=== PATIENT | male | born 1940 | race Caucasian/White ===

== ENCOUNTER 2020-08-30 06:08 | Outpatient (REF) | payer MEDICARE, SELFPAY ==
[2020-08-30 07:36] LABS: Alanine Aminotransferase 27 U/L (0-40); Albumin Level 4.3 g/dL (3.5-5.0); Alkaline Phosphatase 85 U/L (39-117); Anion Gap 12 (12-20); Aspartate Amino Transferase 21 U/L (5-37); Bilirubin Total 0.6 mg/dL (0.0-1.0); Blood Urea Nitrogen 22 mg/dL (9-16); Calcium 9.3 mg/dL (8.4-10.2); Carbon Dioxide 28 mmol/L (22-29); Chloride 104 mmol/L (96-108); Cholesterol 106 mg/dL; Estimated Glomerular Filt Rate 49; Glucose Fasting 115 mg/dL (60-99); HDL Cholesterol 32 mg/dL; LDL Cholesterol Calculated 53 mg/dl; Potassium 5.3 mmol/l (3.3-5.1); Sodium 139 mmol/L (135-145); Total Protein 7.3 g/dL (6.5-8.0); Triglycerides 106 mg/dL; Uric Acid 6.6 mg/dL (3.4-7.0)
[2020-08-30 07:56] LABS: Creatinine Urine 27.65 mg/dL; Microalbum/Creatinine Ratio Ur 54.2 ug/mg cr
== END 2020-08-30 06:09 | disposition home or self-care (01) ==
LOC: HO.LAB 06:08
PROVIDERS: Visit Provider Internal Medicine
DX: E11.3599 Type 2 diabetes mellitus with proliferative diabetic retinopathy without macular edema, unspecified eye (principal); M10.9 Gout, unspecified
CPT/HCPCS: 36415; 80053; 80061; 82043; 84550

== ENCOUNTER 2021-01-03 07:07 | Outpatient (REF) | payer MEDICARE, SELFPAY ==
[2021-01-03 08:16] LABS: Alanine Aminotransferase 24 U/L (0-40); Albumin Level 4.1 g/dL (3.5-5.0); Alkaline Phosphatase 91 U/L (39-117); Anion Gap 14 (12-20); Aspartate Amino Transferase 18 U/L (5-37); Bilirubin Total 0.5 mg/dL (0.0-1.0); Blood Urea Nitrogen 18 mg/dL (9-16); Calcium 8.7 mg/dL (8.4-10.2); Carbon Dioxide 25 mmol/L (22-29); Chloride 105 mmol/L (96-108); Cholesterol 111 mg/dL; Estimated Glomerular Filt Rate 54; Glucose Fasting 134 mg/dL (60-99); HDL Cholesterol 32 mg/dL; LDL Cholesterol Calculated 56 mg/dl; Potassium 4.8 mmol/L (3.3-5.1); Sodium 139 mmol/L (135-145); Triglycerides 116 mg/dL
[2021-01-03 08:20] LABS: Creatinine Urine 117.15 mg/dL; Microalbum/Creatinine Ratio Ur 139.9 ug/mg cr
[2021-01-03 09:11] LABS: Uric Acid 5.6 mg/dL (3.4-7.0)
== END 2021-01-03 07:08 | disposition home or self-care (01) ==
LOC: HO.LAB 07:07
PROVIDERS: Visit Provider Internal Medicine
DX: E11.9 Type 2 diabetes mellitus without complications (principal); E78.5 Hyperlipidemia, unspecified; M10.9 Gout, unspecified
CPT/HCPCS: 36415; 80053; 80061; 82043; 84550

== ENCOUNTER → 2021-02-19 13:28 | Outpatient (REF) | payer MEDICARE, SELFPAY ==
--- NOTE | 2021-02-19 13:33 | CA_ITS ---
Transthoracic Echocardiogram Patient (Last, First, Middle): Calvin Godwin, Gender: Male Date of : 1940 Age: 80 Procedure Date: 02/19/2021 Procedure Type: Transthoracic Echocardiogram Location: OP Height: 157.48 cm Weight: 86.18 kg BSA: 1.87 m2 Heart Rate: bpm BP: 124 / 80 mmHg Actuarial Science Professor: Referring MD: Fang Solitario MD Symptoms: R60.0 - Localized edema Study Quality: Fair ECG Rhythm: Sinus Conclusions: - The left ventricular systolic function is normal. The visually estimated ejection fraction is between 65-70%. - There is moderate septal asymmetric hypertrophy. - There is mild calcification of the aortic valve. - No obvious valvular pathology seen on this study. Findings Left Ventricle Normal left ventricular cavity size. The left ventricular systolic function is normal. The visually estimated ejection fraction is between 65-70%. There is no evidence of regional wall motion abnormalities. E/E prime ratio is >15, consistent with elevated filling pressures. Evidence suggests grade I (mild) diastolic dysfunction. There is moderate septal asymmetric hypertrophy. Right Ventricle Normal right ventricular cavity size and systolic function. Atria The left atrium is normal in size. The right atrium is normal in size. Aortic Valve There is mild calcification of the aortic valve. There is no aortic valve stenosis. There is no aortic valve regurgitation. Mitral Valve The mitral valve appears normal. There is trace mitral valve regurgitation. There is no mitral valve stenosis. Pulmonic Valve The pulmonic valve was not well visualized. Tricuspid Valve Normal tricuspid valve structure. There is trace tricuspid valve regurgitation. The pulmonary artery systolic pressure is normal. Great Vessels Top normal ascending aortic size at 3.7 cm. Venous The inferior vena cava is normal in size and collapses greater than 50% with inspiration. Pericardium/Pleural There is no evidence of pericardial effusion. Prior Study Comparison No significant change compared to prior study dated: 05/26/2019. Recommendations, Care & Conclusions No obvious valvular pathology seen on this study. Measurements 2D Linear Measurements IVSd: 1.57 0.6-0.9/0.6-1.0 cm LVIDd: 3.29 3.9-5.3/4.2-5.9 cm LVIDd Index: 1.76 2.4-3.2/2.2-3.1 cm/m2 LVIDs: 2.21 2.0-3.6 cm LVPWd: 1.51 0.7-1.1 cm Ao Root: 3.60 2.1-3.5 cm LA Diam: 3.40 2.7-3.8/3.0-4.0 cm LAIDs Index: 1.82 1.5-2.3 cm/m2 LV Mass: 231.78 67-162/88-224 g LV Mass Index: 123.95 43-95/49-115 g/m2 LVOT Diam: 2.00 3.0+(-)1.3 cm Mitral Valve MV Pk E: 0.61 MV PK A: 1.05 MV Decel Time: 116.00 E/A: 0.60 E'Lateral: 3.67 E'Medial: 4.06 E/E' Med: 15.00 E/E' Lat: 16.60 PHT: 34.00 MVA PHT: 6.47 Decel [place]: 5.26 Aortic Valve AoV Pk Henry: 1.28 AoV Mn Henry: 0.86 AoV VTI: 0.23 AoV Pk Grad: 7.00 Aov Mn Grad: 3.00 ANDER Cont.VTI: 1.93 LVOT LVOT Pk Henry: 0.87 LVOT Mn Henry: 0.63 LVOT VTI: 0.14 LVOT Pk Grad: 3.00 LVOT Mn Grad: 2.00 LVOT Diam: 2.00 LVOT Area: 3.14 Diastolic Function MV Pk E: 0.61 MV Pk A: 1.05 E/A: 0.60 E'Medial: 4.06 E/E' Med: 15.00 E' Laterial: 3.67 E/E' Lat: 16.60 Tricuspid Valve TR Pk Henry: 1.58 TR Pk Grad: 10.00 RA Press: 3.00 RVSP: 13.00 Great Vessels Aorta Ao Root-2D: 3.60 2.0-3.7 cm Ao Asc: 3.70 2.1-3.4 cm Pulmonary Valve PV Pk Henry: 0.77 Peak PV Grad: 2.00 Updated in Other Vendor System with Status of Final Randy Kay MD electronically signed on 02/20/2021 12:19:51 PM with status of Final
== END ==
LOC: HO.CARD 13:28
PROVIDERS: Visit Provider Internal Medicine
DX: R60.0 Localized edema (principal)
CPT/HCPCS: 93306

== ENCOUNTER 2021-09-18 08:34 | Outpatient (REF) | payer MEDICARE, SELFPAY ==
[2021-09-18 09:57] LABS: B Type Natriuretic Peptide 22 pg/mL (<100)
[2021-09-18 10:02] LABS: Alanine Aminotransferase 25 U/L (0-40); Albumin Level 4.2 g/dL (3.5-5.0); Alkaline Phosphatase 102 U/L (39-117); Anion Gap 13 (12-20); Aspartate Amino Transferase 19 U/L (5-37); Bilirubin Total 0.9 mg/dL (0.0-1.0); Blood Urea Nitrogen 21 mg/dL (9-16); Calcium 9.1 mg/dL (8.4-10.2); Carbon Dioxide 24 mmol/L (22-29); Chloride 104 mmol/L (96-108); Cholesterol 103 mg/dL; Estimated Glomerular Filt Rate 47; Glucose Fasting 167 mg/dL (60-99); HDL Cholesterol 31 mg/dL; LDL Cholesterol Calculated 54 mg/dl; Sodium 136 mmol/L (135-145); Total Protein 7.2 g/dL (6.5-8.0); Triglycerides 90 mg/dL
[2021-09-18 10:12] LABS: Uric Acid 5.7 mg/dL (3.4-7.0)
[2021-09-18 10:18] LABS: TSH reflex Free T4 2.71 uIU/mL (0.32-4.0)
[2021-09-18 10:46] LABS: Creatinine Urine 47.26 mg/dL; Microalbum/Creatinine Ratio Ur 97.3 ug/mg cr
== END 2021-09-18 08:35 | disposition home or self-care (01) ==
LOC: HO.LAB 08:34
PROVIDERS: PCP Internal Medicine; Visit Provider Internal Medicine
DX: R60.0 Localized edema (principal); E11.29 Type 2 diabetes mellitus with other diabetic kidney complication; R80.9 Proteinuria, unspecified; E78.5 Hyperlipidemia, unspecified; M10.9 Gout, unspecified
CPT/HCPCS: 36415; 80053; 80061; 82043; 83880; 84443; 84550

== ENCOUNTER 2022-03-03 06:13 | Outpatient (REF) | payer MEDICARE, MEDICAID, SELFPAY ==
[2022-03-03 08:00] LABS: Creatinine Urine 85.88 mg/dL; Microalbum/Creatinine Ratio Ur 126.9 ug/mg cr
[2022-03-03 08:05] LABS: Alanine Aminotransferase 29 U/L (0-40); Alkaline Phosphatase 97 U/L (39-117); Anion Gap 12 (12-20); Aspartate Amino Transferase 20 U/L (5-37); Bilirubin Total 0.5 mg/dL (0.0-1.0); Blood Urea Nitrogen 22 mg/dL (9-16); Calcium 9.2 mg/dL (8.4-10.2); Carbon Dioxide 26 mmol/L (22-29); Chloride 105 mmol/L (96-108); Cholesterol 105 mg/dL; Estimated Glomerular Filt Rate 45; Glucose Fasting 219 mg/dL (60-99); HDL Cholesterol 30 mg/dL; LDL Cholesterol Calculated 51 mg/dl; Potassium 5.5 mmol/L (3.3-5.1); Sodium 137 mmol/L (135-145); Total Protein 7.1 g/dL (6.5-8.0); Triglycerides 121 mg/dL
[2022-03-03 08:17] LABS: Uric Acid 5.7 mg/dL (3.4-7.0)
[2022-03-08 12:41] LABS: Vitamin D 25-OH, D2 <4 ng/mL; Vitamin D 25-OH, D3 34 ng/mL; Vitamin D 25-OH, Total 34 ng/mL (30-100)
== END 2022-03-03 06:14 | disposition home or self-care (01) ==
LOC: HO.LAB 06:13
PROVIDERS: PCP Internal Medicine; Visit Provider Internal Medicine
DX: I10 Essential (primary) hypertension (principal); E11.9 Type 2 diabetes mellitus without complications; E78.5 Hyperlipidemia, unspecified; E55.9 Vitamin D deficiency, unspecified; M10.9 Gout, unspecified
CPT/HCPCS: 36415; 80053; 80061; 82043; 82306; 84550

== ENCOUNTER 2022-09-15 06:34 | Outpatient (REF) | payer MEDICARE, MEDICAID, SELFPAY ==
[2022-09-15 07:56] LABS: Alanine Aminotransferase 27 U/L (0-40); Albumin Level 4.1 g/dL (3.5-5.0); Alkaline Phosphatase 102 U/L (39-117); Anion Gap 16 (12-20); Aspartate Amino Transferase 22 U/L (5-37); Bilirubin Total 0.5 mg/dL (0.0-1.0); Blood Urea Nitrogen 21 mg/dL (9-16); Calcium 9.2 mg/dL (8.4-10.2); Carbon Dioxide 25 mmol/L (22-29); Chloride 104 mmol/L (96-108); Cholesterol 114 mg/dL; Estimated Glomerular Filt Rate 50; Glucose Fasting 147 mg/dL (60-99); HDL Cholesterol 34 mg/dL; LDL Cholesterol Calculated 50 mg/dl; Potassium 5.2 mmol/L (3.3-5.1); Sodium 140 mmol/L (135-145); Total Protein 7.1 g/dL (6.5-8.0); Triglycerides 151 mg/dL; Uric Acid 5.7 mg/dL (3.4-7.0)
[2022-09-15 08:01] LABS: Creatinine Urine 51.55 mg/dL; Microalbum/Creatinine Ratio Ur 195.9 ug/mg cr
[2022-09-15 08:19] LABS: Vitamin D 25-OH Total 32.3 ng/mL (>30)
== END 2022-09-15 06:35 | disposition home or self-care (01) ==
LOC: HO.LAB 06:34
PROVIDERS: PCP Internal Medicine; Visit Provider Internal Medicine
DX: E11.29 Type 2 diabetes mellitus with other diabetic kidney complication (principal); R80.9 Proteinuria, unspecified; E78.5 Hyperlipidemia, unspecified; M10.9 Gout, unspecified; E55.9 Vitamin D deficiency, unspecified
CPT/HCPCS: 36415; 80053; 80061; 82043; 82306; 84550

== ENCOUNTER 2023-10-06 16:30 | Outpatient (AMB) | payer MEDICARE, MEDICAID, SELFPAY ==
--- NOTE | 2023-10-06 16:33 | MHC.PC.OV ---
Vital Signs 10/06/23 16:34 Height 5 ft Weight 197 lb BMI 38.5 BP 130/68 Blood Pressure Location Lt brachial Position Sitting Pulse 71 Pulse Source Pulse Oximeter Pulse Oximetry (%) 94 Oxygen Delivery Method Room Air Intake Visit Reasons: PE Intake Note: Patient here for a physical exam, referral request to opthalmologist Dr peña [facility] Counsel Required: No Accompanied by: Self / Same As Patient Allergies seafood Allergy (Severe, Verified 10/06/23 16:58) Anaphylaxis Medication List - Last Reconciled 10/06/23 by Fang Solitario MD allopurinol 100 mg PO DAILY 90 days aspirin (Adult Aspirin Regimen) 81 mg PO DAILY 90 days atorvastatin 40 mg PO DAILY blood sugar diagnostic 1 strip miscellaneous BID 30 days blood-glucose meter ([employer] Ultra2 Meter kit) As directed brimonidine 0.1% 1 drp ophthalmic-Right BID dorzolamide-timolol 22.3-6.8 mg/mL 1 drp ophthalmic-Right BID insulin degludec (Tresiba FlexTouch U-100 insulin) 39 units (0.39 mL) subcut BEDTIME 90 days isosorbide mononitrate ER 30 mg PO DAILY lancets ([employer]Touch UltraSoft Lancets) Use 1 lancet twice a day latanoprost 0.005% 1 drp ophthalmic-Right BEDTIME linagliptin (Tradjenta) 5 mg PO DAILY 90 days metformin 1,000 mg PO BID metoprolol succinate ER 25 mg PO DAILY olmesartan 40 mg PO DAILY omeprazole 20 mg PO DAILY 90 days pen needle, diabetic (BD Ultra-Fine Mini Pen Needle) USE EVERY DAY Tobacco use date assessed: 12/24/22 Fall risk assessment: No Falls in past year Last assessed Fall Risk: 10/06/23 Dental Screening Dental Screen Date: 10/06/23 Did you have a dental visit in the last 12 months?: No Did you have a dental problem in the last 6 months where you did not have access to dental care?: No Was dental information given to patient?: Patient declined HPI HPI Comments History of Present Illness Details This is an 83-year-old male with diabetes mellitus type 2 that comes accompanied by daughter which is the intake counselor for his physical exam. A1c has improved but still elevated and I will increase insulin. No chest pain or shortness of breath. He is legally blind and use a cane for walking. Will be referred to Ophthalmology for diabetic eye exam. 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 Mother Diabetes Brother Hx of CABG Diabetes Hypertension Daughter No problems noted. Daughter No problems noted. Social History Housing: Apartment Alcohol intake: former Year quit: 2011 Patient Tobacco Use Status: Former Tobacco user Tobacco use type: Cigarette e-Cigarette/Vaping Use: Never Used Second Hand Smoke Exposure: No service: No Current occupational status: disabled Cognitive needs: Yes Hearing needs: No Vision needs: No Questionnaire Thrive Questionnaire Date Thrive assessed: 12/24/22 DIONNE-7 AMB Questionnaire DIONNE-7 Date DIONNE - 7 assessed: 12/24/22 Source: Developed by Drs. Byron Wu, Lisy Turner, Jame King and colleagues, with an educational belen from [employer]. Review of Systems Const All systems reviewed & are unremarkable except as noted in HPI and below Eyes Reports no additional complaints, Denies change in vision and Denies other visual disturbances Card Denies chest pain at rest, Denies chest pain with activity, Denies edema, Denies irregular heart rhythm, Denies claudication, Denies dyspnea, Denies dyspnea on exertion, Denies orthopnea, Denies paroxysmal nocturnal dyspnea and Denies slow heart rate Resp Denies cough, Denies dyspnea and Denies dyspnea on exertion GI Denies abdominal pain, Denies change in bowel habits, Denies excessive flatus, Denies nausea and Denies vomiting Denies urinary hesitancy, Denies urinary incontinence and Denies urinary urgency Musc Denies abnormal gait, Denies atrophy, Denies deformity and Denies limited range of motion Skin/Breast Denies bleeding lesions, Denies changing lesions and Denies rash Neuro Denies abnormal gait, Denies behavioral changes, Denies confusion and Denies lack of coordination Psych Denies behavioral changes and Denies confusion Physical exam (Primary Care) Vital Signs: Last Vital Signs Pulse 71 10/06/23 16:34 BP 130/68 10/06/23 16:34 Pulse Ox 94 10/06/23 16:34 Oxygen Delivery Method Room Air 10/06/23 16:34 BMI result Body Mass Index 38.5 Tobacco/Smoking Status: Tobacco use Status Tobacco use date assessed 12/24/22 10/06/23 16:44 Patient Tobacco Use Status Former Tobacco user 10/06/23 16:44 Tobacco use type Cigarette 10/06/23 16:44 e-Cigarette/Vaping Use Never Used 10/06/23 16:44 Thrive Assessment: Date of Thrive Assessment Date Thrive assessed 12/24/22 10/06/23 16:44 Const General: No confusion Orientation/consciousness: patient oriented x3 and No confusion Limitations: ambulation with cane HENMT Head: Yes normal to inspection, Yes normocephalic and Yes atraumatic Ears: external ears normal General nose exam: Normal external nose present and No nasal discharge present Face and sinus: Yes sinuses nontender Mouth: lip normal Eyes Eyelids: Yes eyelids normal Neck Neck: Yes normal visual inspection and Yes supple Resp Effort & Inspection: normal respiratory effort Auscultation: clear to auscultation bilaterally Cardio Jugular venous distension: no JVD Rate: regular rate Rhythm: regular rhythm Heart sounds: S1 normal heart sound present and S2 normal heart sound present GI Inspection: Yes normal to inspection Palpation (GI): Soft to palpation and nontender Auscultation: normal bowel sounds Skin General skin exam: no rashes or lesions noted Neuro General: patient oriented x3, no focal motor deficits and No confusion Extrem General: Yes full ROM Psych Appearance: grossly normal Office Procedures Flu Questionnaire Does the patient have a severe egg allergy?: No Does the patient have severe life threatening allergies?: No Does the patient have a fever or illness today?: No Has the patient ever had Guillain-[place] Syndrome?: No Has the patient ever had any past reaction to a flu shot?: No Results AMB Hemoglobin A1c AMB Hemoglobin A1c 7.4 % Last Edit by ORION Campbell on 10/06/23 16:49 Immunizations flu vacc [id number] 6mos up(PF) 60 mcg(15 mcgx4)/0.5 mL IM syringe Performing Provider: Fang Solitario MD [facility] Administered by: Clemencia ORION Saleem on 10/06/23 17:13 Dose Route Admin Location Dispensed Lot Number Expiration Date NDC Statistician Mathematical 0.5 mL IM Right Deltoid 0.5 mL [id number] 05/29/24 [id number] Appiterate VIS Given Date VIS Provided VIS Publication Date 10/06/23 Single Vaccine 21 Eligibility Eligibility Date Funding Source Not VFC Eligible 10/06/23 Private Results Reviewed Results Reviewed: Laboratory Last Values Hgb A1c (Clinic) 7.4 % (4.0-6.0) H 10/06/23 16:33 Assessment and Plan Assessment & Plan (1) Physical exam: Code(s): Z00.00 - Encounter for general adult medical examination without abnormal findings Plan: Repeat in a year. (2) Diabetes mellitus: Code(s): E11.9 - Type 2 diabetes mellitus without complications Qualifiers: Diabetes mellitus type: type 2 Diabetes mellitus usp insulin use: without usp use Diabetes mellitus complication status: with kidney complications Diabetes mellitus complication detail: with microalbuminuria Qualified Code(s): E11.29 - Type 2 diabetes mellitus with other diabetic kidney complication; R80.9 - Proteinuria, unspecified Plan: Increase insulin. A1c goal is equal or less than 7%. Orders: Orders Lipid Panel Today E78.5 - Hyperlipidemia, unspecified Uric Acid Today M10.9 - Gout, unspecified Comprehensive [place]. Panel Fast Today N18.30 - Chronic kidney disease, stage 3 unspecified AMB Hemoglobin A1c Today E11.9 - Type 2 diabetes mellitus without complications Influenza [id number] Immunization Today Z23 - Encounter for immunization Microalbumin, Random (w Creat) Today E11.9 - Type 2 diabetes mellitus without complications Referrals Ophthalmology Referral E11.9 - Type 2 diabetes mellitus without complications, H40.9 - Unspecified glaucoma Medications: New amoxicillin 500 mg PO BID 14 tabs 0RF 7 days Changed From insulin degludec (Tresiba FlexTouch U-100 insulin) 39 units (0.39 mL) subcut BEDTIME 90 days 35.1 mL 1RF E11.29 - Type 2 diabetes mellitus with other diabetic kidney complication, R80.9 - Proteinuria, unspecified, 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 To insulin degludec (Tresiba FlexTouch U-100 insulin) 40 units (0.4 mL) subcut BEDTIME 36 mL 1RF 90 days E11.29 - Type 2 diabetes mellitus with other diabetic kidney complication, R80.9 - Proteinuria, unspecified, 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
[2023-10-06 16:34] VITALS: BP 130/68; PULSE 71; O2SAT 94; BMI 38.5
== END 2023-10-06 17:19 | disposition home or self-care (01) ==
PROVIDERS: Visit Provider Internal Medicine
DX: Z00.00 Encounter for general adult medical examination without abnormal findings (principal); E11.29 Type 2 diabetes mellitus with other diabetic kidney complication; R80.9 Proteinuria, unspecified; Z23 Encounter for immunization
CPT/HCPCS: 83036; 90471; 90686; 99397

== ENCOUNTER 2024-01-30 07:07 | Outpatient (REF) | payer MEDICARE, MEDICAID, SELFPAY ==
[2024-01-30 08:19] LABS: Alanine Aminotransferase 22 U/L (0-40); Albumin Level 3.8 g/dL (3.5-5.0); Alkaline Phosphatase 93 U/L (39-117); Anion Gap 16 (12-20); Aspartate Amino Transferase 23 U/L (5-37); Bilirubin Total 0.5 mg/dL (0.0-1.0); Blood Urea Nitrogen 20 mg/dL (9-16); Calcium 8.8 mg/dL (8.4-10.2); Carbon Dioxide 24 mmol/L (22-29); Chloride 106 mmol/L (96-108); Cholesterol 108 mg/dL (<200); Estimated Glomerular Filt Rate 56; Glucose Fasting 136 mg/dL (60-99); HDL Cholesterol 34 mg/dL (>40); LDL Cholesterol Calculated 53 mg/dL (<100); Potassium 4.9 mmol/L (3.3-5.1); Sodium 141 mmol/L (135-145); Triglycerides 107 mg/dL (<150); Uric Acid 5.6 mg/dL (3.4-7.0)
[2024-01-30 08:27] LABS: Creatinine Urine 78.15 mg/dL
== END 2024-01-30 07:08 | disposition home or self-care (01) ==
LOC: HO.LAB 07:07
PROVIDERS: PCP Internal Medicine; Visit Provider Internal Medicine
DX: E11.22 Type 2 diabetes mellitus with diabetic chronic kidney disease (principal); E78.5 Hyperlipidemia, unspecified; M10.9 Gout, unspecified; N18.30 Chronic kidney disease, stage 3 unspecified
CPT/HCPCS: 36415; 80053; 80061; 82043; 82570; 84550

== ENCOUNTER 2024-02-02 13:18 | Outpatient (AMB) | payer MEDICARE, MEDICAID, SELFPAY ==
[2024-02-02 13:24] VITALS: BP 138/80; BMI 38.7
--- NOTE | 2024-02-02 13:24 | A.OFFPC_ITS ---
Vital Signs 02/02/24 13:24 Height 5 ft Weight 198 lb BMI 38.7 BP 138/80 Blood Pressure Location Lt brachial Position Sitting Intake Visit Reasons: dm Intake Note: Patient here for a follow up DM Chief Compliance Officer Required: No Accompanied by: Daughter Allergies seafood Allergy (Severe, Verified 02/02/24 13:43) Anaphylaxis Medication List - Last Reconciled 02/02/24 by Fang Solitario MD allopurinol 100 mg PO DAILY 90 days aspirin (Adult Aspirin Regimen) 81 mg PO DAILY 90 days atorvastatin 40 mg PO DAILY blood sugar diagnostic 1 strip miscellaneous BID 30 days blood-glucose meter ([employer] Ultra2 Meter kit) As directed brimonidine 0.1% 1 drp ophthalmic-Right BID dorzolamide-timolol 22.3-6.8 mg/mL 1 drp ophthalmic-Right BID insulin degludec (Tresiba FlexTouch U-100 insulin) 40 units (0.4 mL) subcut BEDTIME 90 days isosorbide mononitrate ER 30 mg PO DAILY lancets ([employer] UltraSoft Lancets) Use 1 lancet twice a day latanoprost 0.005% 1 drp ophthalmic-Right BEDTIME linagliptin (Tradjenta) 5 mg PO DAILY 90 days metformin 1,000 mg PO BID metoprolol succinate ER 25 mg PO DAILY olmesartan 40 mg PO DAILY omeprazole 20 mg PO DAILY 90 days pen needle, diabetic (BD Ultra-Fine Mini Pen Needle) USE EVERY DAY Tobacco use date assessed: 02/02/24 Fall risk assessment: No Falls in past year Last assessed Fall Risk: 02/02/24 Dental Screening Dental Screen Date: 02/02/24 Did you have a dental visit in the last 12 months?: No Did you have a dental problem in the last 6 months where you did not have access to dental care?: No Was dental information given to patient?: Patient declined HPI HPI Comments History of Present Illness Details This is an 83-year-old male with diabetes mellitus type 2 on long-term current use of insulin, chronic kidney disease stage 3, hypertension, dyslipidemia and GERD that comes today accompanied by daughter which is the conference coordinator for follow-up on his conditions. A1c elevated and I will replace Tradjenta with Trulicity. He has use Trulicity in the past but daughter said that he decrease his appetite. We will try it again. Blood pressure stable. GFR of 57 and he used to follow with Nephrology and I will refer him again. LDL within goal. GERD stable with PPIs. He is blind and walks with a cane for that matter. [facility] Medical History [facility] (current) use of insulin Class 2 obesity with body mass index (BMI) of 37.0 to 37.9 in adult Blind in both eyes Microalbuminuria Leg edema Essential hypertension Diabetes mellitus Dyslipidemia Gout Surgical History History of cataract surgery History of eye surgery Family History Father No problems noted. Mother Diabetes Brother Hx of CABG Diabetes Hypertension Daughter No problems noted. Daughter No problems noted. Social History Housing: Apartment Alcohol intake: former Year quit: 2011 Patient Tobacco Use Status: Former Tobacco user Tobacco use type: Cigarette e-Cigarette/Vaping Use: Never Used Second Hand Smoke Exposure: No service: No Current occupational status: disabled Cognitive needs: Yes Hearing needs: No Vision needs: No Questionnaire PHQ-9 Over the last 2 weeks, how often have you been bothered by any of the following problems? 1. Little interest or pleasure in doing things: not at all 2. Feeling down, depressed, or hopeless: not at all 3. Trouble falling or staying asleep, or sleeping too much: not at all 4. Feeling tired or having little energy: not at all 5. Poor appetite or overeating: not at all 6. Feeling bad about yourself - or that you are a failure or have let yourself or your family down: not at all 7. Trouble concentrating on things, such as reading the newspaper or watching television: not at all 8. Moving or speaking so slowly that other people could have noticed. Or the opposite - being so fidgety or restless that you have been moving around a lot more than usual: not at all 9. Thoughts that you would be better off or of hurting yourself in some way: not at all Total score: 0 Depression Screening Interpretation: Negative Depression Screening Done: Yes 65710 - PHQ-9 Billing: Yes Source: Developed by Drs. Byron Wu, Jame Zayas and colleagues, with an educational belen from [employer]. Thrive Questionnaire Date Thrive assessed: 02/02/24 I am a: Patient What is your living situation today?: I have a steady place to live Within the past 12 months, did the food you bought not last and you didn't have the money to get more?: Never true Within the past 12 months, did you worry whether your food would run out before you got money to buy more?: Never true Do you have trouble paying for medicines?: No Do you have trouble getting transportation to medical appointments?: No Do you have trouble paying your heating and electricity bill?: No Do you have trouble taking care of your child, family member or friend?: No Do you have trouble with day-to-day activities such as bathing, preparing meals, shopping, managing finances, etc.?: Yes Are you currently unemployed and looking for a job?: No Are you interested in more education?: No Please select the resources that you would like help with: None Currently or been in a relationship where the following occur: no concerns reported THRIVE Score: 0 AUDIT C Alcohol Use Questionnaire (AUDIT-C) 1. How often do you have a drink containing alcohol?: Never Total Score: 0 DIONNE-7 AMB Questionnaire DIONNE-7 Date DIONNE - 7 assessed: 02/02/24 Feeling nervous, anxious, or on edge: 0 = Not at all Not being able to stop or control worryin = Not at all Worrying too much about different things: 0 = Not at all Trouble relaxin = Not at all Being so restless that it is hard to sit still: 0 = Not at all Becoming easily annoyed or irritable: 0 = Not at all Feeling afraid as if something awful might happen: 0 = Not at all Total DIONNE-7 score (0-4 normal; 5-9 mild; 10-14 moderate; 15-21 severe): 0 Source: Developed by Lisy Mcneill Kurt Kroenke and colleagues, with an educational belen from [employer]. DIONNE-7 Assessment Billing DIONNE-7 Assessment Tool: DIONNE-7 Assessment 22480 Review of Systems Const All systems reviewed & are unremarkable except as noted in HPI and below Eyes Reports no additional complaints, Denies change in vision and Denies other visual disturbances Card Denies chest pain at rest, Denies chest pain with activity, Denies edema, Denies irregular heart rhythm, Denies claudication, Denies dyspnea, Denies dyspnea on exertion, Denies orthopnea, Denies paroxysmal nocturnal dyspnea and Denies slow heart rate Resp Denies cough, Denies dyspnea and Denies dyspnea on exertion GI Denies abdominal pain, Denies change in bowel habits, Denies excessive flatus, Denies nausea and Denies vomiting Denies urinary hesitancy, Denies urinary incontinence and Denies urinary urgency Musc Denies abnormal gait, Denies atrophy, Denies deformity and Denies limited range of motion Skin/Breast Denies bleeding lesions, Denies changing lesions and Denies rash Neuro Denies abnormal gait, Denies behavioral changes and Denies lack of coordination Psych Denies behavioral changes Physical exam (Primary Care) Vital Signs: Last Vital Signs BP 138/80 02/02/24 13:24 BMI result Body Mass Index 38.7 Tobacco/Smoking Status: Tobacco use Status Tobacco use date assessed 02/02/24 02/02/24 13:33 Patient Tobacco Use Status Former Tobacco user 02/02/24 13:27 Tobacco use type Cigarette 02/02/24 13:27 e-Cigarette/Vaping Use Never Used 02/02/24 13:27 PHQ-9: PHQ-9 Score PHQ-9: Total score 0 02/02/24 13:48 Depression Screening Interpretation: Negative Thrive Assessment: Date of Thrive Assessment Date Thrive assessed 02/02/24 02/02/24 13:33 Currently or been in a relationship where the following occur: no concerns reported Neck Neck: Yes normal visual inspection and Yes supple Resp Effort & Inspection: normal respiratory effort Auscultation: clear to auscultation bilaterally Cardio Jugular venous distension: no JVD Rate: regular rate Rhythm: regular rhythm Heart sounds: S1 normal heart sound present and S2 normal heart sound present Extrem General: Yes full ROM Results AMB Hemoglobin A1c AMB Hemoglobin A1c 8.5 % Last Edit by ORION Campbell on 02/02/24 13:3 6 Results Reviewed Results Reviewed: Laboratory Last Values Hgb A1c (Clinic) 8.5 % (4.0-6.0) H 02/02/24 13:34 Assessment and Plan Assessment & Plan (1) Diabetes mellitus: Code(s): E11.9 - Type 2 diabetes mellitus without complications Qualifiers: Diabetes mellitus type: type 2 Diabetes mellitus correction insulin use: without correction use Diabetes mellitus complication status: with kidney complications Diabetes mellitus complication detail: with microalbuminuria Qualified Code(s): E11.29 - Type 2 diabetes mellitus with other diabetic kidney complication; R80.9 - Proteinuria, unspecified Plan: Continue metformin and insulin. Discontinue Tradjenta. Start Trulicity. A1c goal is equal or less than 7%. (2) Essential hypertension: Code(s): I10 - Essential (primary) hypertension Plan: Continue olmesartan. Blood pressure goal is equal or less than 130/80. (3) Dyslipidemia: Code(s): E78.5 - Hyperlipidemia, unspecified Plan: Continue statins. LDL goal is less than 70. (4) GERD (gastroesophageal reflux disease): Code(s): K21.9 - Gastro-esophageal reflux disease without esophagitis Plan: Continue PPIs. (5) CKD (chronic kidney disease) stage 3, GFR 30-59 ml/min: Code(s): N18.30 - Chronic kidney disease, stage 3 unspecified Plan: Referred to nephrology. Orders: Orders AMB Hemoglobin A1c Today E11.9 - Type 2 diabetes mellitus without complications Medications: New dulaglutide (Trulicity) 0.75 mg (0.5 mL) subcut QWEEK 90 days 6.5 mL 0RF E11.9 - Type 2 diabetes mellitus without complications Discontinued linagliptin (Tradjenta) Discontinued Reason: Order 5 mg PO DAILY 90 days 90 tabs 3RF Coding Level of Care Code Est Pt Level 4 (05029) Diagnoses Type 2 diabetes mellitus with microalbuminuria, without long-term current use of insulin E11.29; R80.9 Diabetes mellitus type: type 2 Diabetes mellitus watermaster insulin use: without watermaster use Diabetes mellitus complication status: with kidney complications Diabetes mellitus complication detail: with microalbuminuria Essential hypertension I10 Dyslipidemia E78.5 GERD (gastroesophageal reflux disease) K21.9 CKD (chronic kidney disease) stage 3, GFR 30-59 ml/min N18.30 Additional Codes DIONNE-7 Assessment Billing - DIONNE-7 Assessment Tool: DIONNE-7 Assessment 65780 ([id number]) Time Spent (min) 23
== END 2024-02-02 13:56 | disposition home or self-care (01) ==
LOC: HO.HMGH 13:19
PROVIDERS: PCP Internal Medicine; Visit Provider Internal Medicine
DX: E11.22 Type 2 diabetes mellitus with diabetic chronic kidney disease (principal); I12.9 Hypertensive chronic kidney disease with stage 1 through stage 4 chronic kidney disease, or unspecified chronic kidney disease; N18.30 Chronic kidney disease, stage 3 unspecified; R80.9 Proteinuria, unspecified; E78.5 Hyperlipidemia, unspecified; K21.9 Gastro-esophageal reflux disease without esophagitis
CPT/HCPCS: 83036; 99214

== ENCOUNTER 2024-10-07 15:17 | Outpatient (AMB) | payer MEDICARE, MEDICAID, SELFPAY ==
--- NOTE | 2024-10-07 15:21 | MHC.PC.OV ---
Vital Signs 10/07/24 15:22 Height 5 ft Weight 194 lb BMI 37.9 BP 130/70 Blood Pressure Location Lt brachial Position Sitting Pulse 62 Pulse Source Pulse Oximeter Pulse Oximetry (%) 97 Oxygen Delivery Method Room Air Intake Visit Reasons: PE Intake Note: Patient is here today for a physical. Pivot Maker Required: No Manager Of Planning: Present Accompanied by: Daughter Allergies seafood Allergy (Severe, Verified 10/07/24 15:22) Anaphylaxis Medication List - Last Reconciled 10/07/24 by Prince Lewis MD allopurinol 100 mg PO DAILY 90 days aspirin (Adult Aspirin Regimen) 81 mg PO DAILY 90 days atorvastatin 40 mg PO DAILY blood sugar diagnostic 1 strip miscellaneous BID 30 days blood-glucose meter (Qlibri Ultra2 Meter kit) As directed brimonidine 0.1% 1 drp ophthalmic-Right BID dorzolamide-timolol 22.3-6.8 mg/mL 1 drp ophthalmic-Right BID dulaglutide (Trulicity) 0.75 mg (0.5 mL) subcut QWEEK 90 days insulin degludec (Tresiba FlexTouch U-100 insulin) 40 units (0.4 mL) subcut BEDTIME 90 days isosorbide mononitrate ER 30 mg PO DAILY lancets ([employer] Joy [employer] NetworkTouch UltraSoft Lancets) Use 1 lancet twice a day metformin 1,000 mg PO BID metoprolol succinate ER 25 mg PO DAILY multivit with min-folic acid 80 mcg (Centrum Adult 50 Plus) 1 tab PO DAILY olmesartan 40 mg PO DAILY omeprazole 20 mg PO DAILY 90 days pen needle, diabetic (BD Ultra-Fine Mini Pen Needle) USE EVERY DAY Tobacco use date assessed: 10/07/24 Fall risk assessment: No Falls in past year Last assessed Fall Risk: 10/07/24 Dental Screening Dental Screen Date: 02/02/24 HPI PE HPI Details 84-year-old obese male with multiple medical problems. Patient has diabetes mellitus hypertension hypercholesterolemia gout chronic kidney disease GERD coming in exam. This is the 1st time I am seeing the patient. Patient was last seen by my colleague January 2024 occ dizzy. 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 Mother Diabetes Brother Hx of CABG Diabetes Hypertension Daughter No problems noted. Daughter No problems noted. Social History (Updated 10/07/24 @ 15:43 by rPince Lewis MD) Housing: Apartment Alcohol intake: former Year quit: 2011 Patient Tobacco Use Status: Former Tobacco user Tobacco use type: Cigarette Years Smoked: 2011 e-Cigarette/Vaping Use: Never Used Second Hand Smoke Exposure: Yes service: No Current occupational status: disabled Cognitive needs: Yes Hearing needs: No Vision needs: No Questionnaire Thrive Questionnaire Date Thrive assessed: 02/02/24 DIONNE-7 AMB Questionnaire DIONNE-7 Date DIONNE - 7 assessed: 02/02/24 Source: Developed by Drs. Byron Wu, Lisy Turner, Jame King and colleagues, with an educational belen from [employer]. Review of Systems Const Denies poor appetite and Denies weakness Eyes Denies no additional complaints ENT Reports Normal hearing present, Denies dizziness, Denies nasal congestion, Denies tinnitus and Denies sore throat Card Denies chest pain, Denies syncope, Denies rapid heart rate and Denies dyspnea Resp Denies cough and Denies dyspnea GI Denies change in stool character, Reports constipation, Denies diarrhea, Denies nausea and Denies vomiting Denies dysuria and Denies urinary frequency Neuro Reports Normal hearing present, Denies confusion, Denies dizziness, Denies syncope and Denies weakness Psych Denies confusion Physical exam (Primary Care) Vital Signs: Last Vital Signs Pulse 62 10/07/24 15:22 BP 130/70 10/07/24 15:22 Pulse Ox 97 10/07/24 15:22 Oxygen Delivery Method Room Air 10/07/24 15:22 BMI result Body Mass Index 37.9 Tobacco/Smoking Status: Tobacco use Status Tobacco use date assessed 10/07/24 10/07/24 15:28 Patient Tobacco Use Status Former Tobacco user 10/07/24 15:43 Tobacco use type Cigarette 10/07/24 15:43 e-Cigarette/Vaping Use Never Used 10/07/24 15:43 Thrive Assessment: Date of Thrive Assessment Date Thrive assessed 02/02/24 10/07/24 15:28 Const General: No confusion Orientation/consciousness: No confusion HENMT Head: Yes normocephalic Ears: external ears normal and TM's normal bilaterally Face and sinus: Yes normal facial exam Mouth: moist mucous membranes Throat: Yes tonsils normal Eyes Conjunctivae: conjunctivae normal Pupils: Equal, round and reactive pupils present and Pupil accommodation reflex normal Direct Ophthalmoscopy: normal light reflex Neck Neck: No lymphadenopathy Thyroid: Thyroid normal Chest Chest palpation & inspection: normal inspection of the chest Resp Effort & Inspection: normal respiratory effort and no audible wheezes Auscultation: clear to auscultation bilaterally, no crackles, no wheezes and lung sounds not diminished Cardio Rate: regular rate Rhythm: regular rhythm Peripheral pulses: radial pulses present and dorsalis pedis present GI Other: guaiac negative prostate enlarged Palpation (GI): no masses Auscultation: normal bowel sounds and normoactive bowel sounds Male General Exam: Yes normal external exam Skin General skin exam: no rashes or lesions noted Rashes: no rashes Neuro General: No confusion Cranial nerves: Yes Equal, round and reactive pupils present and Yes Normal hearing present Cognition (Neuro): normal cognition Gait exam (Neuro): Normal gait present Motor exam (neuro): 5/5 motor strength present throughout Deep tendon reflexes (DTR's): Right brachioradialis reflex intensity grade: 2+, Left brachioradialis reflex intensity grade: 2+, Right patellar reflex intensity grade: 2+ and Left patellar reflex intensity grade: 2+ Extrem General: No edema Office Procedures Flu Questionnaire Does the patient have a severe egg allergy?: No Does the patient have severe life threatening allergies?: No Does the patient have a fever or illness today?: No Has the patient ever had Guillain-[place] Syndrome?: No Has the patient ever had any past reaction to a flu shot?: No Results AMB Hemoglobin A1c AMB Hemoglobin A1c 9.7 % Last Edit by ORION Bardales on 10/07/24 15:36 Immunizations Fluarix Triv [id number] (PF) 45 mcg (15 mcg x 3)/0.5 mL IM syringe Performing Provider: Prince Lewis MD [facility] Administered by: DOUG Lester on 10/07/24 17:56 Dose Route Admin Location Dispensed Lot Number Expiration Date NDC Director Of Philanthropy 0.5 mL IM Right Deltoid 0.5 mL [id number] 05/29/25 [id number] [employer] VIS Given Date VIS Provided VIS Publication Date 10/07/24 Single Vaccine 21 Eligibility Eligibility Date Funding Source Not [facility] Eligible 10/07/24 Private Results Reviewed Results Reviewed: Laboratory Last Values Hgb A1c (Clinic) 9.7 % (4.0-6.0) H 10/07/24 15:21 Coding Level of Care Code Est Pt Prev Care >65y(20887) Diagnoses Annual physical exam Z00.00 Type 2 diabetes mellitus with hyperglycemia, with long-term current use of insulin E11.65; Z79.4 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 use Class 2 severe obesity due to excess calories with serious comorbidity and body mass index (BMI) of 37.0 to 37.9 in adult E66.812; E66.01; Z68.37 Obesity type: due to excess calories Serious obesity comorbidity presence: with serious comorbidity Essential hypertension I10 Hypercholesterolemia E78.00 Gastroesophageal reflux disease without esophagitis K21.9 Esophagitis presence: without esophagitis Stage 3a chronic kidney disease N18.31 Chronic kidney disease stage 3 subtype: stage 3a (GFR 45-59) Blind in both eyes H54.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 Hemoglobin A1c goal of less than 7.0. Patient is on metformin 1000 mg twice a day Tresiba 40 units once a day Trulicity 0.75 once a week. (3) Class 2 obesity with body mass index (BMI) of 37.0 to 37.9 in adult: Code(s): E66.9 - Obesity, unspecified; Z68.37 - Body mass index [BMI] 37.0-37.9, adult Category: Medical Qualifiers: Obesity type: due to excess calories Serious obesity comorbidity presence: with serious comorbidity Qualified Code(s): E66.812 - Obesity, class 2; E66.01 - Morbid (severe) obesity due to excess calories; Z68.37 - Body mass index [BMI] 37.0-37.9, adult Plan: Diet and exercise (4) Essential hypertension: Code(s): I10 - Essential (primary) hypertension Category: Medical Plan: Continue with blood pressure medication. Decrease salt intake and exercise patient takes olmesartan 40 mg once a day and metoprolol 25 mg once a day (5) Hypercholesterolemia: Code(s): E78.00 - Pure hypercholesterolemia, unspecified Category: Medical Plan: Avoid fried foods, chicken skin, eggs, butter margarine, pastries and meat. Be it pork or beef they have a lot of cholesterol patient is on atorvastatin 40 mg once a day LDL goal of less than 100 and triglyceride of less than 150. (6) GERD (gastroesophageal reflux disease): Code(s): K21.9 - Gastro-esophageal reflux disease without esophagitis Category: Medical Qualifiers: Esophagitis presence: without esophagitis Qualified Code(s): K21.9 - Gastro-esophageal reflux disease without esophagitis Plan: Avoid the foods that causes that usually spicy foods, tomato products, juices, coffee, soda and foods that your sensitive to. After eating do not lie down, allow 3-4 hours before in lie down. And keep the head of bed above 30 degrees to avoid the acid from going up. (7) CKD (chronic kidney disease) stage 3, GFR 30-59 ml/min: Code(s): N18.30 - Chronic kidney disease, stage 3 unspecified Category: Medical Qualifiers: Chronic kidney disease stage 3 subtype: stage 3a (GFR 45-59) Qualified Code(s): N18.31 - Chronic kidney disease, stage 3a Plan: Keep well hydrated avoid NSAIDs continue to control the blood pressure and diabetes. (8) Blind in both eyes: Code(s): H54.3 - Unqualified visual loss, both eyes Category: Medical Plan: Legally blind (9) Gout: Code(s): M10.9 - Gout, unspecified Category: Medical Qualifiers: Chronicity: chronic Gout etiology: idiopathic Gout site: unspecified site Presence of tophus: without tophus Qualified Code(s): M1A.00X0 - Idiopathic chronic gout, unspecified site, without tophus (tophi) Plan: Keep well hydrated, low purine diet (10) SOB (shortness of breath) on exertion: Code(s): R06.02 - Shortness of breath Category: Medical Plan: will refer to cardiology, ekg advised (11) Constipation: Code(s): K59.00 - Constipation, unspecified Category: Medical Qualifiers: Constipation type: slow transit constipation Qualified Code(s): K59.01 - Slow transit constipation Plan: Three rules for constipation 1. Diet need to have a high fiber diet less of meat 2. Increase oral fluids 3. Exercise. 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
[2024-10-07 15:22] VITALS: BP 130/70; PULSE 62; O2SAT 97; BMI 37.9
== END 2024-10-07 16:18 | disposition home or self-care (01) ==
LOC: HO.HMCH 15:17
PROVIDERS: PCP Internal Medicine; Visit Provider Internal Medicine
DX: Z00.00 Encounter for general adult medical examination without abnormal findings (principal); I12.0 Hypertensive chronic kidney disease with stage 5 chronic kidney disease or end stage renal disease; N18.31 Chronic kidney disease, stage 3a; E11.65 Type 2 diabetes mellitus with hyperglycemia; Z79.4 Long term (current) use of insulin; E66.01 Morbid (severe) obesity due to excess calories; E11.29 Type 2 diabetes mellitus with other diabetic kidney complication; Z68.37 Body mass index [BMI] 37.0-37.9, adult; E78.00 Pure hypercholesterolemia, unspecified; K21.9 Gastro-esophageal reflux disease without esophagitis; H54.3 Unqualified visual loss, both eyes; Z23 Encounter for immunization

== ENCOUNTER → 2024-10-07 15:17 | Outpatient (BNVA) | payer MEDICARE, MEDICAID, SELFPAY | PROVIDERS: PCP Internal Medicine; Visit Provider Internal Medicine | DX: Z00.00 Encounter for general adult medical examination without abnormal findings (principal); Z23 Encounter for immunization; E11.65 Type 2 diabetes mellitus with hyperglycemia; Z79.4 Long term (current) use of insulin; E66.01 Morbid (severe) obesity due to excess calories; Z68.37 Body mass index [BMI] 37.0-37.9, adult; K21.9 Gastro-esophageal reflux disease without esophagitis; E78.00 Pure hypercholesterolemia, unspecified; I12.9 Hypertensive chronic kidney disease with stage 1 through stage 4 chronic kidney disease, or unspecified chronic kidney disease; E11.22 Type 2 diabetes mellitus with diabetic chronic kidney disease; N18.31 Chronic kidney disease, stage 3a; H54.3 Unqualified visual loss, both eyes; M1A.00X0 Idiopathic chronic gout, unspecified site, without tophus (tophi); K59.01 Slow transit constipation | CPT/HCPCS: 83036; 90471; 90656; 99397 ==

== ENCOUNTER 2025-01-11 16:19 | Outpatient (AMB) | payer MEDICARE, MEDICAID, SELFPAY ==
--- NOTE | 2025-01-11 16:23 | A.OFFPC_ITS ---
Vital Signs 01/11/25 16:27 Height 5 ft Weight 197 lb BMI 38.5 BP 136/78 Blood Pressure Location Lt brachial Position Sitting Intake Visit Reasons: DM Intake Note: Patient here for a follow up DM Can Reconditioner Required: Yes Can Reconditioner Language: Donations Attendant Name: Fang Solitario MD Information Interpreted: non-clinical & clinical Accompanied by: Daughter Allergies seafood Allergy (Severe, Verified 01/11/25 16:39) Anaphylaxis Medication List - Last Reconciled 01/11/25 by Fang Solitario MD allopurinol 100 mg PO DAILY 90 days aspirin (Adult Aspirin Regimen) 81 mg PO DAILY 90 days atorvastatin 40 mg PO DAILY blood sugar diagnostic 1 strip miscellaneous BID 30 days blood-glucose meter As directed brimonidine 0.1% 1 drp ophthalmic-Right BID dorzolamide-timolol 22.3-6.8 mg/mL 1 drp ophthalmic-Right BID dulaglutide 1.5 mg (0.5 mL) subcut QWEEK 90 days insulin degludec (Tresiba FlexTouch U-100 insulin) 40 units (0.4 mL) subcut BEDTIME 90 days isosorbide mononitrate ER 30 mg PO DAILY lancets Use 1 lancet twice a day metformin 1,000 mg PO BID metoprolol succinate ER 25 mg PO DAILY multivit with min-folic acid 80 mcg (Centrum Adult 50 Plus) 1 tab PO DAILY olmesartan 40 mg PO DAILY omeprazole 20 mg PO DAILY 90 days pen needle, diabetic (BD Ultra-Fine Mini Pen Needle) USE EVERY DAY sennosides-docusate sodium 8.6-50 mg (Senna Plus) 2 tab-caps (2 x 8.6-50 mg) PO BEDTIME PRN Tobacco use date assessed: 01/11/25 Fall risk assessment: No Falls in past year Last assessed Fall Risk: 01/11/25 Dental Screening Dental Screen Date: 01/11/25 Did you have a dental visit in the last 12 months?: No Did you have a dental problem in the last 6 months where you did not have access to dental care?: No Was dental information given to patient?: No HPI HPI Comments History of Present Illness Details The patient is an 84-year-old male presenting with diabetes mellitus. The elevated blood sugar level was noted to be 10.7%, which is considered inadequate control. The patient is currently on allopurinol for gout, aspirin for cardiovascular protection, atorvastatin for hyperlipidemia, Trulicity (1.5 mg dose) for glycemic control, isosorbide mononitrate, metformin, metoprolol for hypertension management, olmesartan for blood pressure regulation, and omeprazole for gastroesophageal reflux disease. The patient has not established care with an drafter apprentice previously and does not have a dedicated physician for diabetes management. There is a noted concern about uncontrolled diabetes, despite previous diligent use of prescribed medications. The development of obesity, particularly abdominal obesity, is also noted, despite weight loss efforts. Walks with a cane due to blindness. He also has chronic kidney disease stage 3 that will be recheck. 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 Mother Diabetes Brother Hx of CABG Diabetes Hypertension Daughter No problems noted. Daughter No problems noted. Social History Housing: Apartment Alcohol intake: former Year quit: 2011 Patient Tobacco Use Status: Former Tobacco user Tobacco use type: Cigarette Years Smoked: 2011 e-Cigarette/Vaping Use: Never Used Second Hand Smoke Exposure: Yes service: No Current occupational status: disabled Cognitive needs: Yes Hearing needs: No Vision needs: No Questionnaire PHQ-9 Over the last 2 weeks, how often have you been bothered by any of the following problems? 1. Little interest or pleasure in doing things: not at all 2. Feeling down, depressed, or hopeless: not at all 3. Trouble falling or staying asleep, or sleeping too much: not at all 4. Feeling tired or having little energy: not at all 5. Poor appetite or overeating: not at all 6. Feeling bad about yourself - or that you are a failure or have let yourself or your family down: not at all 7. Trouble concentrating on things, such as reading the newspaper or watching television: not at all 8. Moving or speaking so slowly that other people could have noticed. Or the opposite - being so fidgety or restless that you have been moving around a lot more than usual: not at all 9. Thoughts that you would be better off or of hurting yourself in some way: not at all Total score: 0 Depression Screening Interpretation: Negative Depression Screening Done: Yes 85272 - PHQ-9 Billing: Yes Source: Developed by Drs. Byron Wu, Lisy Turner, Jame King and colleagues, with an educational belen from [employer]. Thrive Questionnaire Date Thrive assessed: 01/11/25 I am a: Patient What is your living situation today?: I have a steady place to live Within the past 12 months, did the food you bought not last and you didn't have the money to get more?: Never true Within the past 12 months, did you worry whether your food would run out before you got money to buy more?: Never true Do you have trouble paying for medicines?: No Do you have trouble getting transportation to medical appointments?: No Do you have trouble paying your heating and electricity bill?: No Do you have trouble taking care of your child, family member or friend?: No Do you have trouble with day-to-day activities such as bathing, preparing meals, shopping, managing finances, etc.?: Yes Are you currently unemployed and looking for a job?: No Are you interested in more education?: No Please select the resources that you would like help with: None Currently or been in a relationship where the following occur: No concerns reported THRIVE Score: 0 AUDIT C Alcohol Use Questionnaire (AUDIT-C) 1. How often do you have a drink containing alcohol?: Never Total Score: 0 Score Reviewed/Action Taken: No DIONNE-7 AMB Questionnaire DIONNE-7 Date DIONNE - 7 assessed: 01/11/25 Feeling nervous, anxious, or on edge: 0 = Not at all Not being able to stop or control worryin = Not at all Worrying too much about different things: 0 = Not at all Trouble relaxin = Not at all Being so restless that it is hard to sit still: 0 = Not at all Becoming easily annoyed or irritable: 0 = Not at all Feeling afraid as if something awful might happen: 0 = Not at all Total DIONNE-7 score (0-4 normal; 5-9 mild; 10-14 moderate; 15-21 severe): 0 Source: Developed by Drs. Byron Wu, Lisy Turner, Jame King and colleagues, with an educational belen from [employer]. DIONNE-7 Assessment Billing DIONNE-7 Assessment Tool: DIONNE-7 Assessment 25592 Review of Systems Const All systems reviewed & are unremarkable except as noted in HPI and below Card Denies chest pain at rest, Denies chest pain with activity, Denies edema, Denies irregular heart rhythm, Denies claudication, Denies dyspnea, Denies dyspnea on exertion, Denies orthopnea, Denies paroxysmal nocturnal dyspnea and Denies slow heart rate Resp Denies cough, Denies dyspnea and Denies dyspnea on exertion Physical exam (Primary Care) Vital Signs: Last Vital Signs BP 136/78 01/11/25 16:27 BMI result Body Mass Index 38.5 BMI Assessment/Plan discussion: High BMI High, discussed plan: lifestyle, weight reduction, dietary and physical activity Tobacco/Smoking Status: Tobacco use Status Tobacco use date assessed 01/11/25 01/11/25 16:33 Patient Tobacco Use Status Former Tobacco user 01/11/25 16:24 Tobacco use type Cigarette 01/11/25 16:24 e-Cigarette/Vaping Use Never Used 01/11/25 16:24 PHQ-9: PHQ-9 Score PHQ-9: Total score 0 01/11/25 16:55 Depression Screening Interpretation: Negative Thrive Assessment: Date of Thrive Assessment Date Thrive assessed 01/11/25 01/11/25 16:33 Currently or been in a relationship where the following occur: No concerns reported Resp Effort & Inspection: normal respiratory effort Auscultation: clear to auscultation bilaterally Cardio Jugular venous distension: no JVD Rate: regular rate Rhythm: regular rhythm Heart sounds: S1 normal heart sound present and S2 normal heart sound present Extrem General: Yes full ROM Results AMB Hemoglobin A1c AMB Hemoglobin A1c 10.7 % Last Edit by ORION Campbell on 01/11/25 16: 34 Results Reviewed Results Reviewed: Laboratory Last Values Hgb A1c (Clinic) 10.7 % (4.0-6.0) H 01/11/25 16:22 Coding Level of Care Code Est Pt Level 4 (12292) Complex EM visit Add On G2211 Diagnoses Type 2 diabetes mellitus with hyperglycemia, with long-term current use of insulin E11.65; Z79.4 Diabetes mellitus technician terminal and repeater insulin use: with technician terminal and repeater use Essential hypertension I10 Idiopathic chronic gout without tophus, unspecified site M1A.00X0 Gout site: unspecified site Gout etiology: idiopathic Chronicity: chronic Presence of tophus: without tophus Gastroesophageal reflux disease without esophagitis K21.9 Esophagitis presence: without esophagitis shelter (current) use of insulin Z79.4 Stage 3a chronic kidney disease N18.31 Chronic kidney disease stage 3 subtype: stage 3a (GFR 45-59) Additional Codes DIONNE-7 Assessment Billing - DIONNE-7 Assessment Tool: DIONNE-7 Assessment 44105 ([id number]) PHQ-9 - 23100 - PHQ-9 Billing: Yes ([id number]) Time Spent (min) 22 Assessment & Plan Assessment & Plan (1) Type 2 diabetes mellitus with hyperglycemia: Code(s): E11.65 - Type 2 diabetes mellitus with hyperglycemia Category: Medical Qualifiers: Diabetes mellitus alf insulin use: with alf use Qualified Code(s): E11.65 - Type 2 diabetes mellitus with hyperglycemia; Z79.4 - technician terminal and repeater (current) use of insulin (2) Essential hypertension: Code(s): I10 - Essential (primary) hypertension Category: Medical (3) Gout: Code(s): M10.9 - Gout, unspecified Category: Medical Qualifiers: Gout site: unspecified site Gout etiology: idiopathic Chronicity: chronic Presence of tophus: without tophus Qualified Code(s): M1A.00X0 - Idiopathic chronic gout, unspecified site, without tophus (tophi) (4) GERD (gastroesophageal reflux disease): Code(s): K21.9 - Gastro-esophageal reflux disease without esophagitis Category: Medical Qualifiers: Esophagitis presence: without esophagitis Qualified Code(s): K21.9 - Gastro-esophageal reflux disease without esophagitis (5) technician terminal and repeater (current) use of insulin: Code(s): Z79.4 - technician terminal and repeater (current) use of insulin Category: Medical (6) CKD (chronic kidney disease) stage 3, GFR 30-59 ml/min: Code(s): N18.30 - Chronic kidney disease, stage 3 unspecified Category: Medical Qualifiers: Chronic kidney disease stage 3 subtype: stage 3a (GFR 45-59) Qualified Code(s): N18.31 - Chronic kidney disease, stage 3a Plan - Increase the dosage of Trulicity to better manage blood sugar levels. - Refer the patient to an drafter apprentice for specialized diabetes care. - Continue current medications, including atorvastatin, aspirin, metformin, omeprazole, and olmesartan as prescribed for chronic conditions. - Schedule follow-up laboratory tests to check lipid profile and urinary protein levels. - Monitor and encourage weight reduction for abdominal obesity. - Reinforce dietary modifications and regular blood sugar monitoring. Patient was informed and verbally consented to the use of an ambient scribe for clinic note documentation during this visit. During the visit, I increased the dose of Trulicity to address the elevated blood sugar levels. We discussed the importance of seeing an drafter apprentice for comprehensive management of diabetes mellitus. I outlined the necessity of laboratory work to assess lipid levels and urine protein. The patient acknowledged understanding the importance of these steps. I stressed the significance of monitoring blood glucose and adherence to dietary recommendation s to mitigate obesity. We also discussed the importance of maintaining regular exercise to help with weight management. Orders: Orders AMB Hemoglobin A1c Today E11.65 - Type 2 diabetes mellitus with hyperglycemia, Z79.4 - shelter (current) use of insulin Vitamin D 25-OH Total Today E55.9 - Vitamin D deficiency, unspecified Comprehensive [place]. Panel Fast Today E11.65 - Type 2 diabetes mellitus with hyperglycemia, Z79.4 - shelter (current) use of insulin Lipid Panel Today E78.5 - Hyperlipidemia, unspecified Microalbumin, Random (w Creat) Today R80.9 - Proteinuria, unspecified Referrals Endocrinology Referral E11.65 - Type 2 diabetes mellitus with hyperglycemia, Z79.4 - shelter (current) use of insulin Medications: New dulaglutide (Trulicity) 3 mg (0.5 mL) subcut QWEEK 6.5 mL 1RF 90 days E11.65 - Type 2 diabetes mellitus with hyperglycemia, Z79.4 - technician terminal and repeater (current) use of insulin Discontinued dulaglutide Discontinued Reason: Patient Completed Course 1.5 mg (0.5 mL) subcut QWEEK 90 days 6.5 mL 0RF E11.9 - Type 2 diabetes mellitus without complications Patient Instructions: - Take the increased dose of Trulicity as prescribed. - Schedule an appointment with the drafter apprentice as referred. - Continue current medications for hypertension, cholesterol, heart health, and gout. - Have the recommended laboratory tests conducted next week. - Focus on dietary changes and regular exercise to assist with weight management. - Return for follow-up monitoring as advised.
[2025-01-11 16:27] VITALS: BP 136/78; BMI 38.5
--- OUTSIDE RECORDS SUMMARY | 2025-01-11 16:41 | XMS_ITS | Clinical Summary ---
Author Organization [address] [facility] Address [address] [place] [address] Phone Care Team Providers Care Cash Application Clerk Name Role Phone Fang Solitario MD Primary Care Provider [phone] Social History Tobacco Use Types Packs/Day Years Used Date Smoking Tobacco: Never Assessed Sex and Gender Information Value Date Recorded Sex Assigned at Not on file Legal Sex Male 8:31 AM EST Gender Identity Not on file Sexual Orientation Not on file Plan of Treatment Upcoming Encounters Date Type Department Care Team ([facility] st Contact Info) Description 01/26/2025 10:30 AM EST Office Visit Orthopedic Surgery - [place] [address] [id number] Andre Westbrook, DPM [address] [address] Health Maintenance Due Date Last Done Comments DTaP,Tdap,and Td Vaccines (1 - Tdap) 1961 Zoster Vaccines (1 of 2) 1992 Pneumococcal Vaccine: 50+ Ye ars (1 of 1 - PCV) 2007 RSV Immunization Patients 60 + Years Old (1 - 1-dose 75+ series) 2017 COVID-19 Vaccine ( - 2023-2 5 season) 2024 Influenza Vaccine (#1) 2024 Cholesterol Screening (Lipid Panel) 10/13/2024 Depression Screening 10/13/2024 Falls Risk Assessment 10/13/2024 Social Influencers of Health Screening 10/13/2024 HIB Vaccines Aged Out No longer eligi ble based on patient's age to complete this topic HPV Vaccines Aged Out No longer eligi ble based on patient's age to complete this topic Hepatitis A Vaccines Aged Out No long er eligible based on patient's age to complete this topic Hepatitis B Vaccines Aged Out No long er eligible based on patient's age to complete this topic IPV Vaccines Aged Out No longer eligi ble based on patient's age to complete this topic MMR Vaccines Aged Out No longer eligi ble based on patient's age to complete this topic Meningococcal ACWY Vaccine Aged Out N o longer eligible based on patient's age to complete this topic RSV Immunization Patients Un jerry 20 months Aged Out No longer eligible b ased on patient's age to complete this topic Varicella Vaccines Aged Out No longer eligible based on patient's age to complete this topic Care Teams Cash Application Clerk Relationship Specialty Start Date End Date Fang Solitario MD [address] [place] [address] , [address] [facility] D/B/A: [facility] ISAAK Treviño PCP - General Internal Medicine 10/13/24
--- OUTSIDE RECORDS SUMMARY | 2025-01-11 16:41 | XMS_ITS | Clinical Summary ---
Author Organization [facility] Address [address] [facility] [address] [place] [address] Phone Care Team Providers Care Qa Test Lead Name Role Phone Fang Jenkins MD Primary Care Provider [phone] Allergies No known active allergies Medications omeprazole (PriLOSEC) [address] capsule Take 1 capsule by mouth 1 (one) time each day Active olmesartan (BENICAR) 40 MG tablet Take 1 tablet by mouth at bed time Active metoprolol succinate XL (TOPROL XL) 25 MG 24 hr tablet 1 tablet 1 (one) time each day Active metFORMIN (GLUCOPHAGE) 1000 MG tablet Take 1 tablet by mouth 2 (two) times a day Active atorvastatin (LIPITOR) 40 MG tablet Take 1 tablet by mouth 1 (one) time each day Active aspirin (ST LAURE) 81 MG EC tablet Take 1 tablet by mouth 1 (one) time each day Active allopurinol (ZYLOPRIM) 100 MG tablet Take 1 tablet by mouth 1 (one) time each day Active Multiple Vitamins-Mineral s (CENTRUM SILVER PO) Take 1 tablet by mouth 1 (one) time each day Active dorzolamide-sami lol (COSOPT) 22.3-6.8 MG/ML ophthalmic solution INSTILL 1 DROP INTO RIGHT EYE TWICE A DAY 04/16/2021 Active isosorbide mononitrate (IMDUR) 30 MG 24 hr tablet Take 30 mg by mouth 1 (one) time each day 06/09/2021 Active Alphagan P 0.1 % solution 03/14/2022 Active latanoprost (XALATAN) 0.005 % ophthalmic solution INSTILL 1 DROP INTO RIGHT EYE AT BEDTIME 02/17/2022 Active Tradjenta 5 MG tablet Take 1 tablet by mouth 1 (one) time each day 12/23/2021 Active Insulin Degludec 100 UNIT/ML solution Inject under the skin Active Tresiba FlexTouch 100 UNIT/ML injection Inject 39 Units under the skin 1 (one) time each day 06/11/2023 Active Active Problems Problem Noted Date Diagnosed Date Stage 3a chronic kidney disease 07/20/2023 Hypertension 12/23/2022 Anemia in chronic kidney disease 05/08/2022 Chronic kidney disease stage 3 06/10/2021 Essential hypertension 06/10/2021 Type 2 diabetes mellitus without complication Family History Medical History Relation Comments Diabetes Sibling 1 Hypertension Sibling 2 Heart disease Sibling 3 Kidney disease Sibling 4 brotehr esrd Relation Status Comments Sibling 1 Sibling 2 Sibling 3 Sibling 4 Social History Tobacco Use Types Packs/Day Years Used Date Smoking Tobacco: Former Cigarettes Q uit: 11/30/2012 Smokeless Tobacco: Never Tobacco Cessation:Counseling Given: Not Answered Comments:Smoking History Info:Every day Alcohol Use Standard Drinks/Week Comments No 0 (1 standard drink = 0.6 oz pur e alcohol) Sex and Gender Information Value Date Recorded Sex Assigned at Not on file Legal Sex Male 4:42 PM EST Gender Identity Not on file Sexual Orientation Not on file Last Filed Vital Signs Vital Sign Reading Time Taken Comments Blood Pressure 140/70 07/20/2023 2:42 PM EDT Pulse 64 07/20/2023 2:42 PM EDT Temperature - - Respiratory Rate - - Oxygen Saturation 98% 03/17/2022 2:58 PM EDT Inhaled Oxygen Concentration - - Weight 89.3 kg (196 lb 12.8 oz) 07/20/2023 2:42 PM EDT Height 157.5 cm (5' 2 ) 06/29/2019 12:0 1 PM EDT Body Mass Index 36 06/29/2019 12:01 PM EDT Plan of Treatment Health Maintenance Due Date Last Done Comments Pneumococcal Vaccine: 65+ Ye ars (1 of 2 - PCV) 1948 Diabetes: Hemoglobin A1C 12/31/2020 Diabetes: Ophthalmology Exam 12/31/2020 Diabetes: Pedal Pulse Checked 12/31/2020 Diabetes: Sensory Foot Exam 12/31/2020 Diabetes: Visual Foot Exam 12/31/2020 Influenza Vaccine (#1) 2024 Hepatitis B Vaccine Aged Out No longe r eligible based on patient's age to complete this topic Insurance [facility] [employer] [employer] Care Teams Qa Test Lead Relationship Specialty Start Date End Date Fang Jenkins MD [address] [place] [address] PCP - General 12/10/20
== END 2025-01-11 16:52 | disposition home or self-care (01) ==
PROVIDERS: PCP Internal Medicine; Visit Provider Internal Medicine
DX: I12.9 Hypertensive chronic kidney disease with stage 1 through stage 4 chronic kidney disease, or unspecified chronic kidney disease (principal); E11.65 Type 2 diabetes mellitus with hyperglycemia; Z79.4 Long term (current) use of insulin; N18.31 Chronic kidney disease, stage 3a; M1A.00X0 Idiopathic chronic gout, unspecified site, without tophus (tophi); K21.9 Gastro-esophageal reflux disease without esophagitis

== ENCOUNTER → 2025-01-11 16:19 | Outpatient (BNVA) | payer MEDICARE, MEDICAID, SELFPAY | PROVIDERS: PCP Internal Medicine; Visit Provider Internal Medicine | DX: E11.65 Type 2 diabetes mellitus with hyperglycemia (principal); M1A.00X0 Idiopathic chronic gout, unspecified site, without tophus (tophi); K21.9 Gastro-esophageal reflux disease without esophagitis; I12.9 Hypertensive chronic kidney disease with stage 1 through stage 4 chronic kidney disease, or unspecified chronic kidney disease; E11.22 Type 2 diabetes mellitus with diabetic chronic kidney disease; N18.31 Chronic kidney disease, stage 3a; Z79.4 Long term (current) use of insulin | CPT/HCPCS: 83036; 96127; 99212 ==

== ENCOUNTER 2025-01-18 14:43 | Outpatient (AMB) | payer MEDICARE, MEDICAID, SELFPAY ==
--- OUTSIDE RECORDS SUMMARY | 2025-01-18 14:45 | XMS_ITS | Clinical Summary ---
Author Organization [facility] Address [address] [facility] [address] [place] [address] Phone Care Team Providers Care Telecom Specialist Name Role Phone Fang Jenkins MD Primary Care Provider [phone] Allergies No known active allergies Medications omeprazole [...] HEALTH MEDICARE [facility] [facility] [employer] Care Teams Telecom Specialist Relationship Specialty Start Date End Date Fang Jenkins MD [address] [place] [address] PCP - General 12/10/20
--- OUTSIDE RECORDS SUMMARY | 2025-01-18 14:45 | XMS_ITS | Clinical Summary ---
Author Organization 175 [facility] Address [address] [place] [address] Phone Care Team Providers Care Principal Investigator Name Role Phone Fang Solitario MD Primary Care Provider [phone] Social History Tobacco Use Types Packs/Day Years Used Date Smoking Tobacco: Never Assessed Sex and Gender Information Value Date Recorded Sex Assigned at Not on file Legal Sex Male 8:31 AM EST Gender Identity Not on file Sexual Orientation Not on file Plan of Treatment Upcoming Encounters Date Type Department Care Team ([facility] st Contact Info) Description 01/26/2025 10:30 AM EST Office Visit Orthopedic Surgery - [place] [address] [phone] Andre Westbrook, DPM [address] [address] Health Maintenance Due Date Last Done Comments DTaP,Tdap,and Td Vaccines (1 - Tdap) 1961 Pneumococcal Vaccine: 50+ Ye ars (1 of 1 - PCV) 1992 Zoster Vaccines (1 of 2) 1992 RSV Immunization Patients 60 + Years Old [...] patient's age to complete this topic Meningococcal B Vacine Aged Out No lo nger eligible based on patient's age to complete this topic RSV Immunization Patients Un jerry 20 months Aged Out No longer eligible b ased on patient's age to complete this topic Varicella Vaccines Aged Out No longer eligible based on patient's age to complete this topic Care Teams Principal Investigator Relationship Specialty Start Date End Date Fang Solitario MD [address] [place] [address] , [address] Physician Associ D/B/A: [facility] ISAAK Treviño PCP - General Internal Medicine 10/13/24
[2025-01-18 15:00] VITALS: BP 148/80; PULSE 71; BMI 38.7
--- NOTE | 2025-01-18 15:00 | A.OFFVIS_ITS ---
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 Intake Note: New patient c/o increased sob and fatigue Hazard Mitigation Officer Required: Yes Utilities Equipment Repairer: Utilities Equipment Repairer Present Accompanied by: Daughter Allergies seafood Allergy (Severe, Verified 01/11/25 16:39) Anaphylaxis Medication List - Last Reconciled 01/18/25 by Rafy Elizabeth MD allopurinol 100 mg PO DAILY 90 days aspirin (Adult Aspirin Regimen) 81 mg PO DAILY 90 days atorvastatin 40 mg PO DAILY blood sugar diagnostic 1 strip miscellaneous BID 30 days blood-glucose meter As directed dorzolamide-timolol 22.3-6.8 mg/mL 1 drp ophthalmic-Right BID dulaglutide (Trulicity) 3 mg (0.5 mL) subcut QWEEK 90 days insulin degludec (Tresiba FlexTouch U-100 insulin) 40 units (0.4 mL) subcut BEDTIME 90 days isosorbide mononitrate ER 30 mg PO DAILY lancets Use 1 lancet twice a day metformin 1,000 mg PO BID metoprolol succinate ER 25 mg PO DAILY multivit with min-folic acid 80 mcg (Centrum Adult 50 Plus) 1 tab PO DAILY olmesartan 40 mg PO DAILY omeprazole 20 mg PO DAILY 90 days pen needle, diabetic (BD Ultra-Fine Mini Pen Needle) USE EVERY DAY sennosides-docusate sodium 8.6-50 mg (Senna Plus) 2 tab-caps (2 x 8.6-50 mg) PO BEDTIME PRN HPI Comments Details: Thank you for referring Denzel fink for evaluation of exertional shortness of breath. Patient presents here with his daughter who is an independent living instructor. They declined a certified independent living instructor. 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 He has been pretty sedentary and does not do much because he has trouble seeing. Only goes about walking with the daughter when she was time and when she takes him out and when he is interested. With exertion he does notice shortness of breath. No exertional chest pain. Denies any orthopnea, PND, leg edema. He was longstanding history of diabetes which has been poorly treated in the past, hyperlipidemia, hypertension, obesity, chronic kidney disease as well as family history with his brothers having coronary artery disease. Patient himself has never had a coronary event including no history of myocardial infarction or any evidence of coronary atherosclerosis although he is currently on isosorbide therapy for unclear reasons. Patient's daughter is not aware as to why. Patient denies any prolonged palpitation irregular heartbeat. [facility] Medical History Dyslipidemia Diabetes mellitus care home (current) use of insulin Class 2 obesity with body mass index (BMI) of 37.0 to 37.9 in adult Blind in both eyes Microalbuminuria Leg edema Essential hypertension Gout Surgical History History of cataract surgery History of eye surgery Family History Father No problems noted. Mother Diabetes Brother Hx of CABG Diabetes Hypertension Daughter No problems noted. Daughter No problems noted. Social History Housing: Apartment Alcohol intake: former Year quit: 2011 Patient Tobacco Use Status: Former Tobacco user Tobacco use type: Cigarette Years Smoked: 2011 e-Cigarette/Vaping Use: Never Used Second Hand Smoke Exposure: Yes service: No Current occupational status: disabled Cognitive needs: Yes Hearing needs: No Vision needs: No Review of Systems Const Denies chills, Denies daytime sleepiness, Denies fatigue, Denies fever(s), Denies frequent falls, Denies poor appetite, Denies snoring, Denies stops breathing during sleep, Denies weakness, Denies weight gain and Denies weight loss Eyes Denies loss of vision ENT Denies dizziness and Denies hearing loss Card Denies chest pain, Denies claudication, Denies leg edema, Denies lightheadedness, Denies palpitations, Denies dyspnea, Denies dyspnea on exertion and Denies orthopnea Resp Denies cough, Denies excessive phlegm production, Denies dyspnea, Denies dyspnea on exertion, Denies snoring and Denies wheezing GI Denies abdominal pain, Denies hematochezia, Denies change in bowel habits, Denies nausea and Denies vomiting Denies dysuria and Denies urinary frequency Musc Denies arthralgias, Denies muscle weakness, Denies numbness and Denies other (frequent falls) Skin/Breast Denies nail changes and Denies rash Neuro Denies Abnormal speech present, Denies dizziness, Denies frequent falls, Denies loss of vision, Denies memory loss, Denies numbness and Denies weakness Psych Denies depression and Denies memory loss Endo Denies fatigue and Denies palpitations Warren/Lymph Reports easy bruising and Reports other (anemia) Aller/Immun Denies wheezing Physical Exam Vital Signs: Last Vital Signs Pulse 71 01/18/25 15:00 BP 148/80 H 01/18/25 15:00 BMI result Body Mass Index 38.7 Const General: cooperative, comfortable, alert and awake Nutritional Appearance: obese Orientation/consciousness: patient oriented x3 Limitations: ambulation with cane HEENT Head: Yes normocephalic and Yes atraumatic Neck Neck: Yes trachea midline, Yes supple and No no JVD Carotids: no bruits Resp Effort & Inspection: decreased respiratory effort Auscultation: clear to auscultation bilaterally and diminished lung sounds Cardio Jugular venous distension: no JVD Palpation: normal PMI Rate: regular rate Rhythm: regular rhythm Heart sounds: S1 normal heart sound present, S2 normal heart sound present, no click, no gallops, no murmurs and no rubs GI Inspection: Yes obesity Auscultation: normal bowel sounds Skin General skin exam: no rashes or lesions noted Neuro General: patient oriented x3 and no focal motor deficits Speech: No Abnormal speech present Extrem General: Yes no clubbing, cyanosis or edema Psych Appearance: grossly normal Office Procedures EKG Details: EKG shows normal sinus rhythm 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 Although he was significant risk factors for obstructive coronary artery disease and structural heart disease. He needs further evaluation from that perspective. Also possible this shortness of breath on exertion most likely related to sedentary lifestyle with minimal activity and significant deconditioning. Will suggest him to undergo vasodilating myocardial perfusion imaging due to inability to walk on a treadmill and underlying abnormal EKG to evaluate for myocardial ischemia. Also suggest an echocardiogram to evaluate LV systolic and diastolic function to evaluate for pulmonary hypertension valvular abnormalities. Further treatment based on the findings. For now he is on good medical therapy. Needs to continue with aggressive risk factor modification with aggressive diabetes management goal hemoglobin A1c less than 7%. Blood pressure is well optimized. Target goal LDL less than 70 mg/dL. Follow up in the clinic after above-mentioned test. Thank you for allowing me to partake in his care Orders: Orders CA echo transthoracic complete Today R06.02 - Shortness of breath CA lexiscan stress w sarita Today R06.02 - Shortness of breath Coding Level of Care Code New Pt Level 4 (53937) Complex EM visit Add On G2211 Diagnoses SOB (shortness of breath) on exertion R06.02 CPT Codes EKG - CPT: [id number], Complete ([id number])
== END 2025-01-18 15:34 | disposition home or self-care (01) ==
PROVIDERS: PCP Internal Medicine; Visit Provider Internal Medicine Cardiovascular Disease
DX: R06.02 Shortness of breath (principal)
CPT/HCPCS: 93010; 99204; G2211

== ENCOUNTER → 2025-01-18 14:43 | Outpatient (BNVA) | payer MEDICARE, MEDICAID, SELFPAY | PROVIDERS: PCP Internal Medicine; Visit Provider Internal Medicine Cardiovascular Disease | DX: R06.02 Shortness of breath (principal); Z87.891 Personal history of nicotine dependence | CPT/HCPCS: 93005; 99202 ==

== ENCOUNTER 2025-01-24 08:07 | Outpatient (REF) | payer MEDICAID, SELFPAY ==
--- OUTSIDE RECORDS SUMMARY | 2025-01-24 08:21 | XMS_ITS | Clinical Summary ---
Author Organization [facility] Address [address] [facility] [address] [place] [address] Phone Care Team Providers Care Wood Floor Layer Name Role Phone Fang Jenkins MD Primary Care Provider [phone] Allergies No known active allergies Medications omeprazole [...] HEALTH MEDICARE [facility] Care Teams Wood Floor Layer Relationship Specialty Start Date End Date Fang Jenkins MD [address] [place] [address] PCP - General 12/10/20
--- OUTSIDE RECORDS SUMMARY | 2025-01-24 08:21 | XMS_ITS | Clinical Summary ---
Author Organization 175 [facility] Address [address] [place] [address] Phone Care Team Providers Care Tomahawk Weapon System Operator Name Role Phone Fang Solitario MD Primary Care Provider [phone] Social History Tobacco Use Types Packs/Day Years Used Date Smoking Tobacco: Never Assessed Sex and Gender Information Value Date Recorded Sex Assigned at Not on file Legal Sex Male 8:31 AM EST Gender Identity Not on file Sexual Orientation Not on file Plan of Treatment Upcoming Encounters Date Type Department Care Team ([facility] st Contact Info) Description 01/26/2025 10:30 AM EST Office Visit Orthopedic Surgery - [place] [address] [phone] Andre Westbrook, DPM [address] [address] Health Maintenance Due Date Last Done Comments [...] age to complete this topic Care Teams Tomahawk Weapon System Operator Relationship Specialty Start Date End Date Fang Solitario MD [address] [place] [address] , [address] Physician Associ D/B/A: [facility] ISAAK Treviño PCP - General Internal Medicine 10/13/24
[2025-01-24 09:43] LABS: Alanine Aminotransferase 27 U/L (0-40); Albumin Level 3.7 g/dL (3.5-5.0); Alkaline Phosphatase 101 U/L (39-117); Anion Gap 11 (12-20); Aspartate Amino Transferase 25 U/L (5-37); Bilirubin Total 0.6 mg/dL (0.0-1.0); Blood Urea Nitrogen 18 mg/dL (9-16); Calcium 8.8 mg/dL (8.4-10.2); Carbon Dioxide 25 mmol/L (22-29); Chloride 107 mmol/L (96-108); Cholesterol 109 mg/dL (<200); Estimated Glomerular Filt Rate 59; Glucose Fasting 120 mg/dL (60-99); HDL Cholesterol 37 mg/dL (>40); LDL Cholesterol Calculated 51 mg/dL (<100); Potassium 4.4 mmol/L (3.3-5.1); Sodium 139 mmol/L (135-145); Total Protein 7.1 g/dL (6.5-8.0); Triglycerides 107 mg/dL (<150)
[2025-01-24 09:48] LABS: Creatinine Urine 74.08 mg/dL; Microalbum/Creatinine Ratio Ur 419.8 ug/mg cr (<30)
[2025-01-24 10:00] LABS: Vitamin D 25-OH Total 29.9 ng/mL (>30)
== END 2025-01-24 08:08 | disposition home or self-care (01) ==
LOC: HO.LAB 08:07
PROVIDERS: Absent Provider Internal Medicine Cardiovascular Disease; PCP Internal Medicine; Visit Provider Internal Medicine
DX: E11.65 Type 2 diabetes mellitus with hyperglycemia (principal); Z79.4 Long term (current) use of insulin; E78.5 Hyperlipidemia, unspecified; R80.9 Proteinuria, unspecified; E55.9 Vitamin D deficiency, unspecified
CPT/HCPCS: 36415; 80053; 80061; 82043; 82306; 82570

== ENCOUNTER → 2025-01-24 08:14 | Outpatient (REF) | payer MEDICARE, MEDICAID, SELFPAY ==
--- NOTE | 2025-01-24 08:22 | CA_ITS ---
Transthoracic Echocardiogram Patient (Last, First, Middle): Calvin Willis, Gender: Male Date of : 1940 Age: 84 Procedure Date: 01/24/2025 Procedure Type: Transthoracic Echocardiogram Location: OP Height: 157.48 cm Weight: 89.36 kg BSA: 1.90 m2 Heart Rate: 60 bpm BP: 165 / 60 mmHg Low Voltage Electrician: ELEAZAR Referring MD: Rafy Elizabeth MD Symptoms: R06.02 - Shortness of breath Study Quality: Adequate ECG Rhythm: Sinus Conclusions: - The left ventricular systolic function is normal. The calculated ejection fraction is 67% by biplane method. - There is moderate septal asymmetric hypertrophy. - No obvious valvular pathology seen on this study. Findings Left Ventricle Normal left ventricular cavity size. There is mildly increased left ventricular wall thickness. The left ventricular systolic function is normal. The calculated ejection fraction is 67% by biplane method. There is no evidence of regional wall motion abnormalities. Evidence suggests grade I (mild) diastolic dysfunction. There is moderate septal asymmetric hypertrophy. Right Ventricle Normal right ventricular cavity size. There is low normal right ventricular systolic function. Atria Both atria are normal in size. Aortic Valve There is a normal trileaflet aortic valve. There is mild calcification of the aortic valve. There is no aortic valve stenosis. There is no aortic valve regurgitation. Mitral Valve The mitral valve appears normal. There is trace mitral valve regurgitation. There is no mitral valve stenosis. Pulmonic Valve The pulmonic valve is likely normal. Tricuspid Valve There is trace tricuspid valve regurgitation. There is no evidence of pulmonary hypertension. Great Vessels The asc aorta and aortic arch are normal in size. Venous The inferior vena cava is normal in size and collapses greater than 50% with inspiration. Pericardium/Pleural There is no evidence of pericardial effusion. Prior Study Comparison No significant change compared to prior study dated: 02/19/2021. Recommendations, Care & Conclusions No obvious valvular pathology seen on this study. Measurements 2D Linear Measurements IVSd: 1.39 0.6-0.9/0.6-1.0 cm LVIDd: 4.14 3.9-5.3/4.2-5.9 cm LVIDd Index: 2.18 2.4-3.2/2.2-3.1 cm/m2 LVIDs: 2.56 2.0-3.6 cm LVPWd: 1.21 0.7-1.1 cm LA Diam: 3.80 2.7-3.8/3.0-4.0 cm LAIDs Index: 2.00 1.5-2.3 cm/m2 LV Mass: 244.63 67-162/88-224 g LV Mass Index: 128.75 43-95/49-115 g/m2 LVOT Diam: 2.20 3.0+(-)1.3 cm 2D Systolic Function EF 4C: 64.50 >55% EF 2C: 70.50 >55% EF BiP: 67.40 >55% Mitral Valve MV Pk E: 0.82 MV PK A: 0.95 MV Decel Time: 228.00 E/A: 0.90 E'Lateral: 6.20 E'Medial: 4.68 E/E' Med: 17.50 E/E' Lat: 13.20 PHT: 67.00 MVA PHT: 3.28 Decel [place]: 3.58 Aortic Valve AoV Pk Henry: 1.31 AoV Mn Henry: 0.91 AoV VTI: 0.30 AoV Pk Grad: 7.00 Aov Mn Grad: 4.00 ANDER Cont.VTI: 2.89 LVOT LVOT Pk Henry: 1.03 LVOT Mn Henry: 0.66 LVOT VTI: 0.23 LVOT Pk Grad: 4.00 LVOT Mn Grad: 2.00 LVOT Diam: 2.20 LVOT Area: 3.80 Diastolic Function MV Pk E: 0.82 MV Pk A: 0.95 E/A: 0.90 E'Medial: 4.68 E/E' Med: 17.50 E' Laterial: 6.20 E/E' Lat: 13.20 Right Ventricle TAPSE (mm): 18.40 TVS' Henry: 9.57 Tricuspid Valve TR Pk Henry: 2.33 TR Pk Grad: 22.00 RA Press: 3.00 RVSP: 25.00 Great Vessels Aorta Sinus of Valsalva: 3.50 2.0-3.5 cm Ao Asc: 3.60 2.1-3.4 cm Ao Arch: 2.60 Pulmonary Valve PV Pk Henry: 0.88 Peak PV Grad: 3.00 Updated in Other Vendor System with Status of Final Randy Kay MD electronically signed on 01/24/2025 11:08:00 AM with status of Final
== END ==
LOC: HO.CARD 08:14
PROVIDERS: PCP Internal Medicine; Visit Provider Internal Medicine Cardiovascular Disease
DX: R06.02 Shortness of breath (principal)
CPT/HCPCS: 93306

== ENCOUNTER → 2025-01-24 08:22 | Outpatient (BNV) | payer MEDICARE, MEDICAID, SELFPAY | PROVIDERS: PCP Internal Medicine; Visit Provider Internal Medicine | DX: I42.2 Other hypertrophic cardiomyopathy (principal); I35.8 Other nonrheumatic aortic valve disorders | CPT/HCPCS: 93306 ==

== ENCOUNTER 2025-01-25 14:46 | Outpatient (AMB) | payer MEDICARE, MEDICAID, SELFPAY ==
--- NOTE | 2025-01-25 14:48 | A.OFFVIS_ITS ---
Vital Signs 01/25/25 14:49 Height 5 ft Weight 200 lb 9.93 oz BMI 39.2 BP 138/82 Blood Pressure Location Rt brachial Position Sitting Pulse 78 Pulse Source Pulse Oximeter Pulse Oximetry (%) 98 Oxygen Delivery Method Room Air Intake Visit Reasons: Type 2 diabetes mellitus with hyperglycemia Intake Note: NEW Patient presents today to establish treatment for Type 2 Diabetes Mellitus: Last Diabetic eye exam was on: DUE Last Podiatry exam was on: Patient does not see a Rickshaw Driver Most recent HbA1c: 10.7%, 01/11/2025 Random Glucose- 124 mg/dL, Today Color Checker Roving Or Yarn Required: Yes Color Checker Roving Or Yarn Language: Machine Fancy Stitcher Services: Color Checker Roving Or Yarn Offered & Declined Accompanied by: Daughter Allergies seafood Allergy (Severe, Verified 01/25/25 14:55) Anaphylaxis Medication List - Last Reconciled 01/25/25 by Julissa Erickson MD allopurinol 100 mg PO DAILY 90 days aspirin (Adult Aspirin Regimen) 81 mg PO DAILY 90 days atorvastatin 40 mg PO DAILY blood sugar diagnostic 1 strip miscellaneous BID 30 days blood-glucose meter As directed dorzolamide-timolol 22.3-6.8 mg/mL 1 drp ophthalmic-Right BID dulaglutide (Trulicity) 3 mg (0.5 mL) subcut QWEEK 90 days insulin degludec (Tresiba FlexTouch U-100 insulin) 44 units (0.44 mL) subcut BEDTIME 90 days isosorbide mononitrate ER 30 mg PO DAILY lancets Use 1 lancet twice a day metformin 1,000 mg PO BID metoprolol succinate ER 25 mg PO DAILY multivit with min-folic acid 80 mcg (Centrum Adult 50 Plus) 1 tab PO DAILY olmesartan 40 mg PO DAILY omeprazole 20 mg PO DAILY 90 days pen needle, diabetic (BD Ultra-Fine Mini Pen Needle) USE EVERY DAY sennosides-docusate sodium 8.6-50 mg (Senna Plus) 2 tab-caps (2 x 8.6-50 mg) PO BEDTIME PRN HPI Comments Details: The patient is an 84-year-old male presenting with diabetes mellitus. Medical history: hypertension, GERD, gout, Unclear diagnosis. At least 15 years. Was living in [place] prior Current medications: Tresiba 40 units qhs, metformin 1000mg twice daily, trulicity 1.5 mg weekly (is on 5th or 6th dose of 1.5 so didnt increase to 3mg yet). HbA1C 10.7% 01/11/2025. 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 Seeing cardiology. Will have stress test. Echo with normal EF. Not seeing podiatry Overdue eye exam ROS CONSTITUTIONAL: Denies weight loss, fever and chills. HEENT: Denies changes in vision and hearing. RESPIRATORY: Denies SOB and cough. CV: Denies palpitations and CP GI: Denies abdominal pain, nausea, vomiting and diarrhea. : Denies dysuria and urinary frequency. MSK: Denies new myalgia and joint pain. SKIN: Denies rash and pruritus. NEUROLOGICAL: Denies headache PSYCHIATRIC: Denies recent changes in mood. PHYSICAL EXAM: GENERAL: Alert and oriented x 3. NAD EYES: EOMI. Anicteric. HENT: Moist mucous membranes. No scleral icterus. No cervical lymphadenopathy. LUNGS: Clear to auscultation bilaterally. CARDIOVASCULAR: Regular rate and rhythm. ABDOMEN: Soft, non-tender +bs EXTREMITIES: Trace bilateral pitting edema SKIN: No rashes or lesions. Warm. NEUROLOGIC: No focal neurological deficits. CN II-XII grossly intact PSYCHIATRIC: Cooperative. 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 Mother Diabetes Brother Hx of CABG Diabetes Hypertension Daughter No problems noted. Daughter No problems noted. Social History Housing: Apartment Alcohol intake: former Year quit: 2011 Patient Tobacco Use Status: Former Tobacco user Tobacco use type: Cigarette Years Smoked: 2011 e-Cigarette/Vaping Use: Never Used Second Hand Smoke Exposure: Yes service: No Current occupational status: disabled Cognitive needs: Yes Hearing needs: No Vision needs: No Physical Exam Vital Signs: Last Vital Signs Pulse 78 01/25/25 14:49 BP 138/82 01/25/25 14:49 Pulse Ox 98 01/25/25 14:49 Oxygen Delivery Method Room Air 01/25/25 14:49 BMI result Body Mass Index 39.2 Quality Reporting (2019) Adult ([facility] ) Smoking risk assessment performed?: Yes Patient Tobacco Use Status: Former Tobacco user Results Reviewed Results Reviewed: Laboratory Last Values Glucose (Clinic) 124 mg/dL (60-115) H 01/25/25 14:57 Assessment & Plan Assessment & Plan (1) Type 2 diabetes mellitus with hyperglycemia: Code(s): E11.65 - Type 2 diabetes mellitus with hyperglycemia Category: Medical Qualifiers: Diabetes mellitus long wall mining machine helper insulin use: with long wall mining machine helper use Qualified Code(s): E11.65 - Type 2 diabetes mellitus with hyperglycemia; Z79.4 - nursing home (current) use of insulin Plan: Uncontrolled. Continue trulicity. Will likely go up to 3mg but will continue current dosing at 1.5mg as this is fairly new Increase tresiba to 44 units Return in one month with meter Recommend eye exam, podiatry Medications: Changed From insulin degludec (Tresiba FlexTouch U-100 insulin) 40 units (0.4 mL) subcut BEDTIME 90 days 36 mL 1RF E11.29 - Type 2 diabetes mellitus with other diabetic kidney complication, R80.9 - Proteinuria, unspecified, Z79.4 - creative developer (current) use of insulin To insulin degludec (Tresiba FlexTouch U-100 insulin) 44 units (0.44 mL) subcut BEDTIME 40 mL 3RF 90 days E11.29 - Type 2 diabetes mellitus with other diabetic kidney complication, R80.9 - Proteinuria, unspecified, Z79.4 - creative developer (current) use of insulin Coding Level of Care Code Est Pt Level 4 (12661) Diagnoses Type 2 diabetes mellitus with hyperglycemia, with long-term current use of insulin E11.65; Z79.4 Diabetes mellitus chcf insulin use: with long wall mining machine helper use
[2025-01-25 14:49] VITALS: BP 138/82; PULSE 78; O2SAT 98; BMI 39.2
[2025-01-25 15:06] LABS: Glucose, Whole Blood 124 mg/dL (60-115)
--- OUTSIDE RECORDS SUMMARY | 2025-01-25 18:13 | XMS_ITS | Clinical Summary ---
Author Organization [facility] Address [address] [facility] [address] [place] [address] Phone Care Team Providers Care Body Wirer Name Role Phone Fang Jenkins MD Primary Care Provider [phone] Allergies No known active allergies Medications omeprazole [...] HEALTH MEDICARE [facility] Care Teams Body Wirer Relationship Specialty Start Date End Date Fang Jenkins MD [address] [place] [address] PCP - General 12/10/20
--- OUTSIDE RECORDS SUMMARY | 2025-01-25 18:13 | XMS_ITS | Clinical Summary ---
Author Organization 175 [facility] Address [address] [place] [address] Phone Care Team Providers Care Professor Of Graphic Design Name Role Phone Fang Solitario MD Primary Care Provider [phone] Social History Tobacco Use Types Packs/Day Years Used Date Smoking Tobacco: Never Assessed Sex and Gender Information Value Date Recorded Sex Assigned at Not on file Legal Sex Male 8:31 AM EST Gender Identity Not on file Sexual Orientation Not on file Plan of Treatment Upcoming Encounters Date Type Department Care Team ([facility] st Contact Info) Description 01/26/2025 10:30 AM EST Office Visit Orthopedic Surgery - [place] [address] [phone] Andre Westbrook, DPM [address] [address] Health Maintenance Due Date Last Done Comments [...] age to complete this topic Care Teams Professor Of Graphic Design Relationship Specialty Start Date End Date Fang Solitario MD [address] [place] [address] , [address] Physician Associ D/B/A: [facility] ISAAK Treviño PCP - General Internal Medicine 10/13/24
== END 2025-01-25 15:36 | disposition home or self-care (01) ==
PROVIDERS: PCP Internal Medicine; Visit Provider Internal Medicine
DX: E11.65 Type 2 diabetes mellitus with hyperglycemia (principal); Z79.4 Long term (current) use of insulin

== ENCOUNTER → 2025-01-25 14:46 | Outpatient (BNVA) | payer MEDICARE, MEDICAID, SELFPAY | PROVIDERS: PCP Internal Medicine; Visit Provider Internal Medicine | DX: E11.65 Type 2 diabetes mellitus with hyperglycemia (principal); Z79.4 Long term (current) use of insulin | CPT/HCPCS: 82947; 99212 ==

== ENCOUNTER → 2025-01-31 09:47 | Outpatient (REF) | payer MEDICARE, MEDICAID, SELFPAY ==
--- NOTE | 2025-01-31 09:52 | CA_ITS ---
Acquisition Time: 2025-01-31 10:20:49 Total Exercise Time: 00:02:00 Test Indications: SOB Medications: ALLOPURINOL AATROVASTATIN METFORMIN METOPROLOL Protocol: LEXISCAN Max HR: 96 BPM 69% of Pred: 138 BPM Max BP: 130/70 mmHG Max Work Load: 1.0 METS Pharmacologic stress test with Lexiscan while pt kicks his legs in chair, with reports of abdominal discomfort and SOB, with isolated PVCs, with normotensive response to injection. Nondiagnostic EKG for ischemia. In recovery, pt treated with IVP Aminophylline 75 mg to reverse Lexiscan, after which pt feeling back to baseline. Nuclear images pending. Test reviewed with Dr. Elizabeth. Referred By: Rafy Elizabeth Electronically Signed By: Cameron Grijalva
--- OUTSIDE RECORDS SUMMARY | 2025-01-31 11:16 | XMS_ITS | Clinical Summary ---
Author Organization [address] [place] [address] Address [address] [place] [address] Phone Care Team Providers Care General Superintendent Name Role Phone Fang Solitario MD Primary Care Provider [phone] Medications clotrimazole (LOTRIMIN) 1 % cream Apply topically 2 (two) times a day. 30 g 3 5 02/26/20 25 Active Encounters Date Type Department Care Team Description 01/26/2025 10:30 AM EST Office Visit Orthopedic [facility] [address] [phone] Andre Westbrook DPM Dermatophytosis of nail (Primary Dx); Pain in toe of right foot; Pain in toe of left foot; Diabetic mononeuropathy simplex (CMS/HCC); Type II diabetes mellitus with peripheral circulatory disorder (CMS/HCC); Tinea pedis of both feet from Last 3 Months Social History Tobacco Use Types Packs/Day Years Used Date Smoking Tobacco: Never Assessed Sex and Gender Information Value Date Recorded Sex Assigned at Not on file Legal Sex Male 8:31 AM EST Gender Identity Not on file Sexual Orientation Not on file Plan of Treatment Upcoming Encounters Date Type Department Care Team ([facility] Contact Info) Description 04/26/2025 1:15 PM EDT Office Visit Orthopedic [facility] [address] [phone] Andre Westbrook DPM [address] [address] Health Maintenance Due Date Last Done Comments Diabetes: Annual GFR (Glomerular Filtration Rate) 1942 Diabetes: Annual Foot Exam 1952 Diabetes: Annual Retina Eye Exam 1952 DTaP,Tdap,and Td Vaccines (1 - Tdap) 1961 Zoster Vaccines (1 of 2) 1992 RSV Immunization Patients 60+ Years Old (1 - 1-dose 75+ series) 2017 COVID-19 Vaccine (4 - season) 2024 03/06/2022, 08/23/2021, 08/02/2021 Cholesterol Screening (Lipid Panel) 10/13/2024 Depression Screening 10/13/2024 Falls Risk Assessment 10/13/2024 Medicare Annual Wellness Visit 10/13/2024 Social Influencers of Health Screening 10/13/2024 Diabetes: Annual Urine Albumin-Creatinine Ratio (uACR) 01/26/2025 Diabetes: Blood Sugar Control Test (HGBA1C) 01/26/2025 Hypertension/CHF/CAD Annual BMP Blood Test 01/26/2025 Pneumococcal Vaccine: 50+ Years Completed 09/20/2019, 07/28/2018 Influenza Vaccine Completed 10/07/2024, , 09/18/2022, Additional history exists HIB Vaccines Aged Out No longer eligi [...] to complete this topic RSV Immunization Patients Under 20 months Aged Out No longer eligible based on patient's age to complete this topic Varicella Vaccines Aged Out No longer eligible based on patient's age to complete this topic Insurance [place] - [place] [facility] MED[employer]AGE Care Teams General Superintendent Relationship Specialty Start Date End Date Fang Solitario MD 2 [facility] , [address] [place] [address] Physician Associ D/B/A: [facility] ISAAK Treviño PCP - General Internal Medicine 10/13/24
--- OUTSIDE RECORDS SUMMARY | 2025-01-31 11:16 | XMS_ITS | Clinical Summary ---
Author Organization [facility] Address [address] [facility] [address] [place] [address] Phone Care Team Providers Care Trolley Car Mechanic Name Role Phone Fang Jenkins MD Primary Care Provider [phone] Allergies No known active allergies Medications omeprazole [...] HEALTH MEDICARE [facility] MED[employer] Care Teams Trolley Car Mechanic Relationship Specialty Start Date End Date Fang Jenkins MD [address] [facility] [address] [place] [address] PCP - General 12/10/20
--- OUTSIDE RECORDS SUMMARY | 2025-01-31 11:16 | XMS_ITS | Encounter Summary ---
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 Fang Solitario MD [address] [place] [address] Physician Associ D/B/A: [facility] [place], [place] Phone: tel: fax: Andre Westbrook DPM [address] [address] Phone: tel: fax: Referral ID Status Reason Start Date Expiration Date Visits Requested Visits Authorized [id number] Pending Review Consult and Treat 1 1 Encounter Details Date Type Department Care Team (Late st Contact Info) Description 01/26/2025 10:30 AM EST Office Visit Orthopedic Surgery - [place] [address] [phone] Andre Westbrook DPM [address] [address] Dermatophytosis of nail (Primary Dx); Pain in toe of right foot; Pain in toe of left foot; Diabetic mononeuropathy simplex (CMS/HCC); Type II diabetes mellitus with peripheral circulatory disorder (CMS/HCC); Tinea pedis of both feet Social History Tobacco Use Types Packs/Day Years Used Date Smoking Tobacco: Never Assessed Sex and Gender Information Value Date Recorded Sex Assigned at Not on file Legal Sex Male 8:31 AM EST Gender Identity Not on file Sexual Orientation Not on file documented as of this encounter Ordered Prescriptions Prescription Sig Dispense Quantity Refills Last Filled Start Date End Date clotrimazole (LOTRIMIN) 1 % cream Apply topically 2 (two) times a day. 30 g 3 01/26/2025 documented in this encounter Progress Notes * Andre Westbrook DPM - 01/26/2025 10:30 AM EST Last PCP visit:Referring MD: Fang Solitario MD 10/07/2024 IDENTIFIER: Tato is a 84 y.o. year old male who presents for consultation. CC: Foot pain HPI: Patient presents today complaining pain in his feet he presents today with his daughter present last A1c was 10 months he has numbness burning tingling to both feet pain discomfort is a 10 out of 10 vision on scale is a type II diabetic he is elongated painful thickened nails when he is cut himselfin the past ROS: GENERAL: Pt denies nausea, fever, vomiting, chills, or shortness of breath. Pt in NAD. CARDIOLOGY: pt denies chest pain, palpitations LUNGS: pt denies shortness of breath MUSCULOSKELETAL: See HPI, otherwise no joint pain or swelling, back pain, or muscle pain. SKIN: see HPI, otherwise no lesions, rash or itching NEURO: No persistent headache, weakness or numbness The remainder of the review of systems is noncontributory PAST MEDICAL HISTORY: There is no problem list on file for this patient. 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 ALLERGIES: Seafood PHYSICAL EXAM: There were no vitals taken for this visit. PODIATRIC EXAMINATION: GENERAL: Patient appears well nourished, with NAD. VASCULAR: Dorsalis pedis pulses are 0/4 bilaterally and Posterior tibial pulses are 0/4 bilaterally. Capillary filling time within normal limits the digits. No pallor on elevation or rubor on dependency. Positive varicosities. Denies rest pain or claudication pain. NEUROLOGICAL: Sharp/dull sensation , protective sensation 0/10 with 5.07 semmes cas bilaterally, vibratory sensation with tuning fork intact to the tibial tuberosity. ORTHOPEDIC: Good muscle strength 5/5 of all flexors and extensors. Dorsi flexion of ankle ,10 degrees, plantar flexion WNL. No muscle atrophy. DERMATOLOGICAL:. Toenails: Left Toenail(s) 1-5: Crumbling upon debridement, subungual debris, discoloration, dystrophy, elongation, mycotic appearance, onychomycosis, pain and thickening. Right Toenail(s) 1-5: Crumbling upon debridement, subungual debris, discoloration, dystrophy, elongation, mycotic appearance, onychomycosis, pain and thickening. Annular scaling bilateral feet moccasin distribution Skin thinning texture shiny appearance diffuse hyperpigmentation bilaterally pedal hair decreased . BIOMECHANICS: Ankle ROM WNL, STJ ROM wnl, MTJ ROM wnl, 1st MPJ ROM wnl. IMAGING: IMPRESSION: 1. Dermatophytosis of nail 2. Pain in toe of right foot 3. Pain in toe of left foot 4. Diabetic mononeuropathy simplex (CMS/HCC) 5. Type II diabetes mellitus with peripheral circulatory disorder (CMS/HCC) 6. Tinea pedis of both feet PLAN: Pt was seen and examined, history reviewed. Clotrimazole prescribed for dermatophytosis of nails and skin Discussed with patient regarding proper glucose control, exercise, and diet. Explained to patient proper shoe gear, and importance of daily foot checks. I reviewed neuropathy and why it occurs in diabetics. I educated the patient on proper blood sugar control and the importance of an HgBA1c of less than 7.0%. I reviewed the signs and symptoms of neuropathy with the patient Pt to return for another evaluation in 3 months. Debridement of mycotic toenails 6-10: Verbal informed consent was obtained from the patient. Greater than 6 nails were aseptically debrided in thickness and length with nail nippers Andre Westbrook DPM documented in this encounter Plan of Treatment Upcoming Encounters Date Type Department Care Team (Late st [facility] Info) Description 04/26/2025 1:15 PM EDT Office Visit Orthopedic Surgery - [place] [address] [phone] Andre Westbrook, DPM [address] [address] documented as of this encounter Visit Diagnoses Diagnosis Dermatophytosis of nail- Primary Pain in toe of right foot Pain in soft tissues of limb Pain in toe of left foot Pain in soft tissues of limb Diabetic mononeuropathy simplex (CMS/HCC) Type II or unspecified type diabetes mellitus with neurological manifestations, not stated as uncontrolled Type II diabetes mellitus with peripheral circulatory disorder (CMS/HCC) Type II or unspecified type diabetes mellitus with peripheral circulatory disorders, not stated as uncontrolled Tinea pedis of both feet documented in this encounter Care Teams Electrical Systems Drafter Relationship Specialty Start Date End Date Fang Solitario MD 2 [facility] , [address] Physician Associ D/B/A: [facility] [place], [place] PCP - General Internal Medicine 10/13/24 documented as of this encounter
== END ==
LOC: HO.CARD 09:47
PROVIDERS: PCP Internal Medicine; Visit Provider Internal Medicine Cardiovascular Disease
DX: R06.02 Shortness of breath (principal)
CPT/HCPCS: 78452; 93017; A9500; J0280; J2785

== ENCOUNTER → 2025-01-31 09:52 | Outpatient (BNV) | payer MEDICARE, MEDICAID, SELFPAY | PROVIDERS: PCP Internal Medicine | DX: R06.02 Shortness of breath (principal); I49.3 Ventricular premature depolarization | CPT/HCPCS: 78452; 93016; 93018 ==

== ENCOUNTER 2025-03-15 15:14 | Outpatient (AMB) | payer MEDICARE, MEDICAID, SELFPAY ==
--- NOTE | 2025-03-15 15:23 | MHC.OFFVIS ---
Vital Signs 03/15/25 15:24 Height 5 ft Weight 196 lb 3.382 oz BMI 38.3 BP 110/60 Blood Pressure Location Rt brachial Position Sitting Pulse 73 Pulse Source Pulse Oximeter Pulse Oximetry (%) 98 Oxygen Delivery Method Room Air Intake Visit Reasons: DM f/u, Med changes Intake Note: NEW Patient presents today to establish treatment for Type 2 Diabetes Mellitus: Last Diabetic eye exam was on: 09/2024 Last Podiatry exam was on: 1-2 months ago Most recent HbA1c: 10.7%, 01/11/2025 glucose 98 [employer] Sales Manager Name: lorena Porcelain Finish Sprayer: Porcelain Finish Sprayer Present Accompanied by: Daughter Allergies seafood Allergy (Severe, Verified 01/25/25 14:55) Anaphylaxis HPI Comments Details: The patient is an 84-year-old male presenting with diabetes mellitus. Medical history: hypertension, GERD, gout, Unclear diagnosis. At least 15 years. Was living in [place] prior Current medications: Tresiba 44 (increased from 40 units qhs), metformin 1000mg twice daily, trulicity 1.5 mg weekly HbA1C 10.7% 01/11/2025. Meter downloaded 0/9 readings/day. Range 93-194 with average 130. 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 Seeing cardiology. Will have stress test. Echo with normal EF. Not seeing podiatry Overdue eye exam ROS CONSTITUTIONAL: Denies weight loss, fever and chills. HEENT: Denies changes in vision and hearing. RESPIRATORY: Denies SOB and cough. CV: Denies palpitations and CP GI: Denies abdominal pain, nausea, vomiting and diarrhea. : Denies dysuria and urinary frequency. MSK: Denies new myalgia and joint pain. SKIN: Denies rash and pruritus. NEUROLOGICAL: Denies headache PSYCHIATRIC: Denies recent changes in mood. PHYSICAL EXAM: GENERAL: Alert and oriented x 3. NAD EYES: EOMI. Anicteric. HENT: Moist mucous membranes. No scleral icterus. No cervical lymphadenopathy. LUNGS: Clear to auscultation bilaterally. CARDIOVASCULAR: Regular rate and rhythm. ABDOMEN: Soft, non-tender +bs EXTREMITIES: Trace bilateral pitting edema SKIN: No rashes or lesions. Warm. NEUROLOGIC: No focal neurological deficits. CN II-XII grossly intact PSYCHIATRIC: Cooperative. Appropriate mood and affect [facility] Medical History Dyslipidemia Diabetes mellitus senior living (current) use of insulin Class 2 obesity with body mass index (BMI) of 37.0 to 37.9 in adult Blind in both eyes Microalbuminuria Leg edema Essential hypertension Gout Surgical History History of cataract surgery History of eye surgery Family History Father No problems noted. Mother Diabetes Brother Hx of CABG Diabetes Hypertension Daughter No problems noted. Daughter No problems noted. Social History Housing: Apartment Alcohol intake: former Year quit: 2011 Patient Tobacco Use Status: Former Tobacco user Tobacco use type: Cigarette Years Smoked: 2011 e-Cigarette/Vaping Use: Never Used Second Hand Smoke Exposure: Yes service: No Current occupational status: disabled Cognitive needs: Yes Hearing needs: No Vision needs: No Physical Exam Vital Signs: Last Vital Signs Pulse 73 03/15/25 15:24 Pulse Ox 98 03/15/25 15:24 Oxygen Delivery Method Room Air 03/15/25 15:24 BMI result Body Mass Index 38.3 Assessment & Plan Assessment & Plan (1) Type 2 diabetes mellitus with hyperglycemia: Code(s): E11.65 - Type 2 diabetes mellitus with hyperglycemia Category: Medical Qualifiers: Diabetes mellitus care home insulin use: with dope worker use Qualified Code(s): E11.65 - Type 2 diabetes mellitus with hyperglycemia; Z79.4 - senior living (current) use of insulin Plan: Improving control Continue current medications Due for A1C end of March will return then. Will call if issues sooner Medications: Discontinued dulaglutide (Trulicity) Discontinued Reason: Doctor's Order 3 mg (0.5 mL) subcut QWEEK 90 days 6.5 mL 1RF E11.65 - Type 2 diabetes mellitus with hyperglycemia, Z79.4 - senior living (current) use of insulin Coding Level of Care Code Est Pt Level 3 (96883) Diagnoses Type 2 diabetes mellitus with hyperglycemia, with long-term current use of insulin E11.65; Z79.4 Diabetes mellitus dope worker insulin use: with care home use
[2025-03-15 15:24] VITALS: BP 110/60; PULSE 73; O2SAT 98; BMI 38.3
[2025-03-15 15:36] LABS: Glucose, Whole Blood 98 mg/dL (60-115)
--- OUTSIDE RECORDS SUMMARY | 2025-03-15 17:49 | XMS_ITS | Clinical Summary ---
Author Organization [address] [place] [address] Address [address] [place] [address] Phone Care Team Providers Care Welder Tack Name Role Phone Fang Solitario MD Primary Care Provider [phone] Medications clotrimazole (LOTRIMIN) 1 % cream Apply topically 2 (two) times a day. 30 g 3 5 02/26/20 25 Encounters Date Type Department Care Team Description 01/26/2025 10:30 AM EST Office Visit Orthopedic Surgery [facility] [address] [phone] Andre Westbrook DPM Dermatophytosis of nail (Primary Dx); Pain in toe of right foot; Pain in toe of left foot; Diabetic mononeuropathy simplex (CMS/HCC V24, CMS/HCC V28); Type II diabetes mellitus with peripheral circulatory disorder (CMS/HCC V24, CMS/HCC V28); Tinea pedis of both feet from Last [...] Care Team (Late st Contact Info) Description 04/26/2025 1:15 PM EDT Office Visit Orthopedic [facility] [address] [phone] Andre Westbrook DPM [address] [address] Health Maintenance Due Date Last Done Comments Diabetes: Annual GFR (Glomerular Filtration Rate) 1942 Diabetes: Annual Foot Exam 1952 Diabetes: Annual Retina Eye Exam 1952 DTaP,Tdap,and Td Vaccines (1 - Tdap) 1961 Zoster Vaccines (1 of 2) 1992 RSV Immunization Adult Patients (1 - 1-dose 75+ series) 2017 COVID-19 Vaccine ( season) 2024 03/06/2022, 08/23/2021, 08/02/2021 Cholesterol Screening [...] age to complete this topic Meningococcal B Vaccine Aged Out No l onger eligible based on patient's age to complete this topic RSV Immunization Patients Under 20 months Aged Out No longer eligible based on patient's age to complete this topic Varicella Vaccines Aged Out No longer eligible based on patient's age to complete this topic [place] - [place] [facility] [employer] Care Teams Welder Tack Relationship Specialty Start Date End Date Fang Solitario MD 2 [facility] , [address] [employer] Physician Associ D/B/A: [facility] ISAAK Treviño PCP - General Internal Medicine 10/13/24
--- OUTSIDE RECORDS SUMMARY | 2025-03-15 17:49 | XMS_ITS | Clinical Summary ---
Author Organization [facility] Address 100 [facility] [address] [place] [address] Phone Care Team Providers Care Rug Measurer Name Role Phone Fang Jenkins MD Primary Care Provider [phone] Allergies No known active allergies Medications omeprazole [...] Due Date Last Done Comments Pneumococcal Vaccine: 50+ Ye ars (1 of 2 - PCV) 1961 Diabetes: Hemoglobin A1C 12/31/2020 Diabetes: Ophthalmology Exam 12/31/2020 Diabetes: Pedal Pulse Checked 12/31/2020 Diabetes: Sensory Foot Exam 12/31/2020 Diabetes: Visual Foot Exam 12/31/2020 Influenza Vaccine (Season Ended) 2025 Hepatitis B Vaccine Aged Out No longe r eligible based on patient's age to complete this topic Insurance [facility] Medicare [facility] Medicare Care Teams Rug Measurer Relationship Specialty Start Date End Date Fang Jenkins MD [address] [facility] [address] [place] [address] PCP - General 12/10/20
== END 2025-03-15 15:44 | disposition home or self-care (01) ==
LOC: HO.ENCR 15:15
PROVIDERS: PCP Internal Medicine; Visit Provider Internal Medicine
DX: E11.65 Type 2 diabetes mellitus with hyperglycemia (principal); Z79.4 Long term (current) use of insulin

== ENCOUNTER → 2025-03-15 15:14 | Outpatient (BNVA) | payer MEDICARE, MEDICAID, SELFPAY | PROVIDERS: PCP Internal Medicine; Visit Provider Internal Medicine | DX: E11.65 Type 2 diabetes mellitus with hyperglycemia (principal); Z79.4 Long term (current) use of insulin | CPT/HCPCS: 82947; 99212 ==

== ENCOUNTER 2025-04-14 07:36 | Outpatient (REF) | payer MEDICARE, MEDICAID, SELFPAY ==
[2025-04-14 09:31] LABS: Anion Gap 11 (12-20); Blood Urea Nitrogen 17 mg/dL (9-16); Calcium 8.8 mg/dL (8.4-10.2); Carbon Dioxide 26 mmol/L (22-29); Chloride 110 mmol/L (96-108); Estimated Glomerular Filt Rate 58; Glucose Random 98 mg/dL (60-115); Potassium 4.6 mmol/L (3.3-5.1); Sodium 142 mmol/L (135-145)
== END 2025-04-14 07:37 | disposition home or self-care (01) ==
LOC: HO.LAB 07:36
PROVIDERS: PCP Internal Medicine; Visit Provider Internal Medicine Cardiovascular Disease
DX: R06.02 Shortness of breath (principal); N18.31 Chronic kidney disease, stage 3a
CPT/HCPCS: 36415; 80048

== ENCOUNTER 2025-04-26 13:25 | Outpatient (AMB) | payer MEDICARE, MEDICAID, SELFPAY ==
[2025-04-26 13:27] VITALS: BP 134/62; PULSE 54; BMI 38.1
--- NOTE | 2025-04-26 13:27 | MHC.OFFVIS ---
Vital Signs 04/26/25 13:27 Height 5 ft Weight 195 lb 5.273 oz BMI 38.1 BP 134/62 Blood Pressure Location Lt brachial Position Sitting Pulse 54 Pulse Source Pulse Oximeter Intake Visit Reasons: follow up/echo/mibi Performance Makeup Artist Required: Yes Performance Makeup Artist Language: Complaint Clerk Name: voice Ledezma [id number] Blister Packing Machine Tender: Blister Packing Machine Tender Present Allergies seafood Allergy (Severe, Verified 04/26/25 13:31) Anaphylaxis HPI Comments Details: This is a 85-year-old male patient coming in for a follow-up visit. Patient is accompanied by his daughter who is the primary deputy chief executive. A net finisher was used throughout the visit. Patient with a history of hypertension, hyperlipidemia, diabetes, and obesity. Patient was previously seen in the office for shortness of breath with exertion for which he underwent an echo and a myocardial perfusion study which was abnormal and has subsequently underwent coronary CTA for which the results are pending at this time. Today, the patient reports feeling well overall and denies any cardiac symptoms including exertional chest pain, palpitations, dizziness, orthopnea, PND, leg edema, presyncope, or syncope. Patient's daughter states that since going blind about 10 years ago he does not like moving around much and is pretty much living a sedentary lifestyle. Daughter affirms his compliance with all his prescribed medications. [facility] Medical History Dyslipidemia Diabetes mellitus senior care (current) use of insulin Class 2 obesity with body mass index (BMI) of 37.0 to 37.9 in adult Blind in both eyes Microalbuminuria Leg edema Essential hypertension Gout Surgical History History of cataract surgery History of eye surgery Family History Father No problems noted. Mother Diabetes Brother Hx of CABG Diabetes Hypertension Daughter No problems noted. Daughter No problems noted. Social History Housing: Apartment Alcohol intake: former Year quit: 2011 Patient Tobacco Use Status: Former Tobacco user Tobacco use type: Cigarette Years Smoked: 2011 e-Cigarette/Vaping Use: Never Used Second Hand Smoke Exposure: Yes service: No Current occupational status: disabled Cognitive needs: Yes Hearing needs: No Vision needs: No Review of Systems ENT Reports dizziness Card Denies chest pain, Denies chest pain at rest, Denies chest pain with activity, Denies rapid heart rate, Denies pedal edema, Denies edema, Denies leg edema, Denies lightheadedness, Denies palpitations, Denies dyspnea, Denies dyspnea on exertion and Denies orthopnea Resp Denies cough, Denies dyspnea and Denies dyspnea on exertion GI Denies hematochezia and Denies change in stool character Musc Denies abnormal gait, Reports limited range of motion, Reports muscle cramps, Denies muscle weakness, Denies numbness, Denies radiating pain into limb, Denies stiffness and Denies tingling Neuro Denies abnormal gait, Reports dizziness, Denies numbness and Denies tingling Endo Denies palpitations Physical Exam Vital Signs: Last Vital Signs Pulse 54 04/26/25 13:27 BP 134/62 04/26/25 13:27 BMI result Body Mass Index 38.1 Const General: cooperative, healthy appearing, comfortable and no acute distress Orientation/consciousness: patient oriented x3 HEENT Other: Legally blind Head: Yes normal to inspection Neck Neck: Yes normal visual inspection, Yes trachea midline and Yes supple Chest Chest palpation & inspection: normal inspection of the chest Resp Effort & Inspection: normal respiratory effort Auscultation: clear to auscultation bilaterally, no crackles, no rales, no rhonchi and no wheezes Cardio Jugular venous distension: no JVD Palpation: normal PMI Rate: regular rate Rhythm: regular rhythm Heart sounds: S1 normal heart sound present, S2 normal heart sound present, no click, no gallops, no murmurs and no rubs Peripheral pulses: Peripheral pulses 2+ throughout GI Inspection: Yes normal to inspection Palpation (GI): Soft to palpation Auscultation: normal bowel sounds Skin General skin exam: no rashes or lesions noted Neuro General: patient oriented x3 Extrem General: Yes normal to inspection, No no pedal edema and No calf tenderness Psych Appearance: grossly normal Mental Status: mental status grossly normal Speech and movement: Normal speech and movement present Assessment & Plan Assessment & Plan (1) SOB (shortness of breath) on exertion: Code(s): R06.02 - Shortness of breath Category: Medical Plan: 01/24/2025-echo study showed a normal LV systolic function with an ejection fraction at 67%, with moderate septal asymmetric hypertrophy. 01/31/2025-patient underwent a myocardial perfusion study that showed moderate to severe intensity ischemia in the diagnostic territory as well as mild intensity in the RCA. Subsequently patient has undergone a coronary CTA on 04/19/2025 at [facility] for which the result is pending at this time. Further treatment based on findings. Clinically stable. Advised aggressive vascular risk factor management. (2) Essential hypertension: Code(s): I10 - Essential (primary) hypertension Category: Medical Plan: Blood pressure today is well-controlled. Continue current regimen with a blood pressure goal less than 130/80. Advised monitoring blood pressures at home and keeping a log of it. (3) Hypercholesterolemia: Code(s): E78.00 - Pure hypercholesterolemia, unspecified Category: Medical Plan: Most recent LDL at 51, within goal of LDL less than 70. Continue statin therapy. (4) Type 2 diabetes mellitus with hyperglycemia: Code(s): E11.65 - Type 2 diabetes mellitus with hyperglycemia Category: Medical Qualifiers: Diabetes mellitus detention insulin use: with detention use Qualified Code(s): E11.65 - Type 2 diabetes mellitus with hyperglycemia; Z79.4 - exterminator helper (current) use of insulin Plan: Most recent A1c at 10.7 %. Patient's he is now seeing endocrinology for diabetes management. Continue with the aggressive management of this with an A1c goal less than 7%. Advised heart healthy diet, regular exercise as tolerated, losing weight, med compliance, and aggressive management of vascular risk factors. Follow-up in 6 months, sooner if needed depending on coronary CTA results. In the interim, patient will call the office with any concerns or change in symptoms. Advised to seek ER care in case of exertional chest pain not resolved with rest. This note was generated using voice recognition software. While every effort has been made to ensure accuracy and proper morning show host, there may be occasional errors that could affect the content or meaning of the described symptoms. Coding Level of Care Code Est Pt Level 4 (28446) Complex EM visit Add On G2211 Diagnoses SOB (shortness of breath) on exertion R06.02 Essential hypertension I10 Hypercholesterolemia E78.00 Type 2 diabetes mellitus with hyperglycemia, with long-term current use of insulin E11.65; Z79.4 Diabetes mellitus remote computer terminal operator insulin use: with remote computer terminal operator use Time Spent (min) 32 Comment Time spent in reviewing the chart, test results, assessment, counseling and documentation.
--- OUTSIDE RECORDS SUMMARY | 2025-04-26 14:16 | XMS_ITS | Clinical Summary ---
Author Organization [facility] Address [address] [facility] [address] [place] [address] Phone Care Team Providers Care Printed Circuit Board Preassembler Name Role Phone Fang Jenkins MD Primary Care Provider [phone] Allergies No known active allergies Medications omeprazole [...] Health Medicare [facility] Medicare Care Teams Printed Circuit Board Preassembler Relationship Specialty Start Date End Date Fang Jenkins MD [address] [place] [address] PCP - General 12/10/20
== END 2025-04-26 13:52 | disposition home or self-care (01) ==
LOC: HO.HCS 13:25
PROVIDERS: PCP Internal Medicine
DX: R06.02 Shortness of breath (principal); I10 Essential (primary) hypertension; E78.00 Pure hypercholesterolemia, unspecified; E11.65 Type 2 diabetes mellitus with hyperglycemia; Z79.4 Long term (current) use of insulin
CPT/HCPCS: 99214; G2211

== ENCOUNTER → 2025-04-26 13:25 | Outpatient (BNVA) | payer MEDICARE, MEDICAID, SELFPAY | PROVIDERS: PCP Internal Medicine | DX: R06.02 Shortness of breath (principal); I10 Essential (primary) hypertension; E78.00 Pure hypercholesterolemia, unspecified; E11.65 Type 2 diabetes mellitus with hyperglycemia; Z79.4 Long term (current) use of insulin | CPT/HCPCS: 99212 ==

== ENCOUNTER 2025-05-03 15:09 | Outpatient (AMB) | payer MEDICARE, MEDICAID, SELFPAY ==
--- NOTE | 2025-05-03 15:11 | MHC.OFFVIS ---
Vital Signs 05/03/25 15:18 Height 5 ft Weight 194 lb 7.163 oz BMI 38.0 BP 120/60 Blood Pressure Location Rt brachial Position Sitting Pulse 70 Pulse Source Pulse Oximeter Pulse Oximetry (%) 96 Oxygen Delivery Method Room Air Intake Visit Reasons: diabetes follow up Intake Note: Patient presents today to re-establish treatment for Type 2 Diabetes Mellitus: Last Diabetic eye exam was on: 10/23 Last Podiatry exam was on: 01/2025 Most recent HbA1c: 9.3% Random Glucose- 183 ___ mg/dL, Today Information Interpreted: non-clinical & clinical Allergies seafood Allergy (Severe, Verified 04/26/25 13:31) Anaphylaxis Medication List - Last Reconciled 05/03/25 by Julissa Erickson MD allopurinol 100 mg PO DAILY 90 days aspirin (Adult Aspirin Regimen) 81 mg PO DAILY 90 days atorvastatin 40 mg PO DAILY blood sugar diagnostic As directed-BID blood sugar diagnostic As directed- BID blood-glucose meter As directed-BID dorzolamide-timolol 22.3-6.8 mg/mL 1 drp ophthalmic-Right BID dulaglutide (Trulicity) 1.5 mg subcut QWEEK insulin degludec (Tresiba FlexTouch U-100 insulin) 44 units (0.44 mL) subcut BEDTIME 90 days isosorbide mononitrate ER 30 mg PO DAILY lancets Use 1 lancet twice a day metformin 1,000 mg PO BID metoprolol succinate ER 25 mg PO DAILY multivit with min-folic acid 80 mcg (Centrum Adult 50 Plus) 1 tab PO DAILY olmesartan 40 mg PO DAILY omeprazole 20 mg PO DAILY 90 days pen needle, diabetic USE EVERY DAY sennosides-docusate sodium 8.6-50 mg (Senna Plus) 2 tab-caps (2 x 8.6-50 mg) PO BEDTIME PRN HPI Comments Details: The patient is an 85-year-old male presenting with diabetes mellitus. Medical history: hypertension, GERD, gout, CAD Unclear diagnosis. At least 15 years. Was living in [place] prior Current medications: Tresiba 44 (increased from 40 units qhs), metformin 1000mg twice daily, trulicity 1.5 mg weekly. Med compliant HbA1C 9.3 today from 10.7% 01/11/2025. Meter not downloaded today. 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 Seeing cardiology. Recent Coronary CT with CAD. Will follow up with cardiology Not seeing podiatry Overdue eye exam ROS CONSTITUTIONAL: Denies weight loss, fever and chills. HEENT: Denies changes in vision and hearing. RESPIRATORY: Denies SOB and cough. CV: Denies palpitations and CP GI: Denies abdominal pain, nausea, vomiting and diarrhea. : Denies dysuria and urinary frequency. MSK: Denies new myalgia and joint pain. SKIN: Denies rash and pruritus. NEUROLOGICAL: Denies headache PSYCHIATRIC: Denies recent changes in mood. PHYSICAL EXAM: GENERAL: Alert and oriented x 3. NAD EYES: EOMI. Anicteric. HENT: Moist mucous membranes. No scleral icterus. No cervical lymphadenopathy. LUNGS: Clear to auscultation bilaterally. CARDIOVASCULAR: Regular rate and rhythm. ABDOMEN: Soft, non-tender +bs EXTREMITIES: Trace bilateral pitting edema SKIN: No rashes or lesions. Warm. NEUROLOGIC: No focal neurological deficits. CN II-XII grossly intact PSYCHIATRIC: Cooperative. Appropriate mood and affect [facility] Medical History Dyslipidemia Diabetes mellitus [facility] (current) use of insulin Class 2 obesity with body mass index (BMI) of 37.0 to 37.9 in adult Blind in both eyes Microalbuminuria Leg edema Essential hypertension Gout Surgical History History of cataract surgery History of eye surgery Family History Father No problems noted. Mother Diabetes Brother Hx of CABG Diabetes Hypertension Daughter No problems noted. Daughter No problems noted. Social History Housing: Apartment Alcohol intake: former Year quit: 2011 Patient Tobacco Use Status: Former Tobacco user Tobacco use type: Cigarette Years Smoked: 2011 e-Cigarette/Vaping Use: Never Used Second Hand Smoke Exposure: Yes service: No Current occupational status: disabled Cognitive needs: Yes Hearing needs: No Vision needs: No Physical Exam Vital Signs: Last Vital Signs Pulse 70 05/03/25 15:18 BP 120/60 05/03/25 15:18 Pulse Ox 96 05/03/25 15:18 Oxygen Delivery Method Room Air 05/03/25 15:18 BMI result Body Mass Index 38.0 Results AMB Hemoglobin A1c AMB Hemoglobin A1c 9.3 % Last Edit by ORION Gregorio on 05/03/25 15:38 Results Reviewed Results Reviewed: Laboratory Last Values Glucose (Clinic) 183 mg/dL (60-115) H 05/03/25 15:24 Hgb A1c (Clinic) 9.3 % (4.0-6.0) H 05/03/25 15:37 Assessment & Plan Assessment & Plan (1) Type 2 diabetes mellitus with hyperglycemia: Code(s): E11.65 - Type 2 diabetes mellitus with hyperglycemia Category: Medical Qualifiers: Diabetes mellitus mcfp insulin use: with mcfp use Qualified Code(s): E11.65 - Type 2 diabetes mellitus with hyperglycemia; Z79.4 - [facility] (current) use of insulin (2) 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: Code(s): Z79.4 - 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 Category: Medical Plan 85 year old with improved but still suboptimal DM Increase trulicity to 3mg Continue current dose of tresiba, metformin Following up with cardiology for CAD Orders: Orders AMB Hemoglobin A1c Today E11.65 - Type 2 diabetes mellitus with hyperglycemia, Z13.9 - Encounter for screening, unspecified, Z79.4 - [facility] (current) use of insulin Medications: New Trulicity (dulaglutide) 3 mg (0.5 mL) subcut QWEEK 2 mL 3RF NS Coding Level of Care Code Est Pt Level 4 (24798) Diagnoses Type 2 diabetes mellitus with hyperglycemia, with long-term current use of insulin E11.65; Z79.4 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
[2025-05-03 15:18] VITALS: BP 120/60; PULSE 70; O2SAT 96; BMI 38.0
--- OUTSIDE RECORDS SUMMARY | 2025-05-03 15:18 | XMS_ITS | Clinical Summary ---
Author Organization [facility] Address [address] [facility] [address] [place] [address] Phone Care Team Providers Care Technical Writer And Editor Name Role Phone Fang Jenkins MD Primary Care Provider [phone] Allergies No known active allergies Medications omeprazole [...] Health Medicare [facility] Medicare Care Teams Technical Writer And Editor Relationship Specialty Start Date End Date Fang Jenkins MD [address] [place] [address] PCP - General 12/10/20
[2025-05-03 15:29] LABS: Glucose, Whole Blood 183 mg/dL (60-115)
== END 2025-05-03 15:46 | disposition home or self-care (01) ==
LOC: HO.ENCR 15:10
PROVIDERS: PCP Internal Medicine; Visit Provider Internal Medicine
DX: Z13.9 Encounter for screening, unspecified (principal); E11.65 Type 2 diabetes mellitus with hyperglycemia; Z79.4 Long term (current) use of insulin

== ENCOUNTER → 2025-05-03 15:09 | Outpatient (BNVA) | payer MEDICARE, MEDICAID, SELFPAY | PROVIDERS: PCP Internal Medicine; Visit Provider Internal Medicine | DX: E11.65 Type 2 diabetes mellitus with hyperglycemia (principal); Z79.4 Long term (current) use of insulin | CPT/HCPCS: 82947; 83036; 99212 ==

== ENCOUNTER 2025-05-08 14:16 | Outpatient (AMB) | payer MEDICARE, MEDICAID, SELFPAY ==
--- NOTE | 2025-05-08 14:32 | A.OFFVIS_ITS ---
Vital Signs 05/08/25 14:33 Height 5 ft Weight 147 lb 11.355 oz BMI 28.8 BP 120/70 Blood Pressure Location Lt brachial Position Sitting Pulse 62 Intake Visit Reasons: f/u after CTA Intake Note: Follow-up after CTA feeling good Service Representative Required: Yes Service Representative Services: Service Representative Present Service Representative Name: halina Liu Straightening Press Operator Helper: Straightening Press Operator Helper Present Accompanied by: Daughter Allergies seafood Allergy (Severe, Verified 04/26/25 13:31) Anaphylaxis Medication List - Last Reconciled 05/08/25 by Rafy Elizabeth MD allopurinol 100 mg PO DAILY 90 days aspirin (Adult Aspirin Regimen) 81 mg PO DAILY 90 days atorvastatin 40 mg PO DAILY blood sugar diagnostic As directed-BID blood sugar diagnostic As directed- BID blood-glucose meter As directed-BID dorzolamide-timolol 22.3-6.8 mg/mL 1 drp ophthalmic-Right BID insulin degludec (Tresiba FlexTouch U-100 insulin) 44 units (0.44 mL) subcut BEDTIME 90 days isosorbide mononitrate ER 30 mg PO DAILY lancets Use 1 lancet twice a day metformin 1,000 mg PO BID metoprolol succinate ER 25 mg PO DAILY multivit with min-folic acid 80 mcg (Centrum Adult 50 Plus) 1 tab PO DAILY olmesartan 40 mg PO DAILY omeprazole 20 mg PO DAILY 90 days pen needle, diabetic USE EVERY DAY sennosides-docusate sodium 8.6-50 mg (Senna Plus) 2 tab-caps (2 x 8.6-50 mg) PO BEDTIME PRN Trulicity (dulaglutide) 3 mg (0.5 mL) subcut QWEEK NS HPI Comments Details: Calvin comes for follow-up, accompanied by his daughter. History was obtained with help of thiokol operator in the room. Patient underwent a recent coronary CTA which shows severe stenosis in the proximal circumflex territory as well as some disease in the RCA in the LAD territory. He comes for follow up and denies any current anginal sounding chest discomfort. He said he is mostly bothered by knee pain when he walks. Denies any exertional chest pain or shortness of breath. He is currently taking metoprolol as well as isosorbide therapy. Also on high-intensity statin therapy. Denies any prolonged palpitations. No heart failure symptoms. 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 Mother Diabetes Brother Hx of CABG Diabetes Hypertension Daughter No problems noted. Daughter No problems noted. Social History Housing: Apartment Alcohol intake: former Year quit: 2011 Patient Tobacco Use Status: Former Tobacco user Tobacco use type: Cigarette Years Smoked: 2011 e-Cigarette/Vaping Use: Never Used Second Hand Smoke Exposure: Yes service: No Current occupational status: disabled Cognitive needs: Yes Hearing needs: No Vision needs: No Review of Systems Const Denies chills, Denies fatigue, Denies fever(s), Denies frequent falls, Denies weakness, Denies weight gain and Denies weight loss ENT Denies dizziness Card Denies chest pain, Denies leg edema, Denies lightheadedness, Denies palpitations, Denies dyspnea, Denies dyspnea on exertion, Denies orthopnea and Denies other (loss of consciousness) Resp Denies cough, Denies dyspnea and Denies dyspnea on exertion GI Denies hematochezia and Denies change in stool character Musc Denies abnormal gait, Denies muscle weakness, Denies numbness, Denies radiating pain into limb and Denies tingling Neuro Denies abnormal gait, Denies dizziness, Denies frequent falls, Denies numbness, Denies tingling and Denies weakness Endo Denies fatigue and Denies palpitations Physical Exam Vital Signs: Last Vital Signs Pulse 62 05/08/25 14:33 BP 120/70 05/08/25 14:33 BMI result Body Mass Index 28.8 Const General: cooperative, healthy appearing, comfortable and no acute distress Orientation/consciousness: patient oriented x3 HEENT Other: Legally blind Head: Yes normal to inspection Neck Neck: Yes normal visual inspection, Yes trachea midline and Yes supple Chest Chest palpation & inspection: normal inspection of the chest Resp Effort & Inspection: normal respiratory effort Auscultation: clear to auscultation bilaterally, no crackles, no rales, no rhonchi and no wheezes Cardio Jugular venous distension: no JVD Palpation: normal PMI Rate: regular rate Rhythm: regular rhythm Heart sounds: S1 normal heart sound present, S2 normal heart sound present, no click, no gallops, no murmurs and no rubs Peripheral pulses: Peripheral pulses 2+ throughout GI Inspection: Yes normal to inspection Palpation (GI): Soft to palpation Auscultation: normal bowel sounds Skin General skin exam: no rashes or lesions noted Neuro General: patient oriented x3 Extrem General: Yes normal to inspection, No no pedal edema and No calf tenderness Psych Appearance: grossly normal Mental Status: mental status grossly normal Speech and movement: Normal speech and movement present Assessment & Plan Assessment & Plan (1) CAD (coronary artery disease): Comment: Coronary CTA showing 70-90% stenosis in the paroxysmal circumflex artery with mild disease in the LAD and moderate disease in the RCA Code(s): I25.10 - Atherosclerotic heart disease of [place] coronary artery without angina pectoris Category: Medical Plan: Significant coronary artery disease in his circumflex artery which could response with abnormal myocardial perfusion imaging in the lateral wall. He is currently not having any cardiac symptoms. We discussed about classic anginal symptoms overall so atypical symptoms. Advised to call me with any exertional symptoms that are worse. Continue current dual antianginal therapy with metoprolol and isosorbide. Continue lifelong aspirin therapy. Continue high- intensity statin therapy. Advised lipid panel in 2 months time. Target goal LDL less than 55 mg/dL. If he develops any significant symptoms of angina will pursue cardiac catheterization with intent for stenting. Continue aggressive diabetes management goal hemoglobin A1c less than 7%. Continue aggressive blood pressure control which is currently well optimized. Target goal blood pressure less than 130/84. Follow-up in the clinic in 3 months time, sooner p.r.n.. Thank you for allowing me to partake in his care Coding Level of Care Code Est Pt Level 4 (77942) Complex EM visit Add On G2211 Diagnoses CAD (coronary artery disease) I25.10
[2025-05-08 14:33] VITALS: BP 120/70; PULSE 62; BMI 28.8
--- OUTSIDE RECORDS SUMMARY | 2025-05-08 16:14 | XMS_ITS | Clinical Summary ---
Author Organization [facility] Address [address] [facility] [address] [place] [address] Phone Care Team Providers Care Meat Soaker Name Role Phone Fang Jenkins MD Primary Care Provider [phone] Allergies No known active allergies Medications omeprazole [...] Health Medicare [facility] Medicare Care Teams Meat Soaker Relationship Specialty Start Date End Date Fang Jenkins MD [address] [place] [address] PCP - General 12/10/20
== END 2025-05-08 14:58 | disposition home or self-care (01) ==
LOC: HO.HCS 14:17
PROVIDERS: PCP Internal Medicine; Visit Provider Internal Medicine Cardiovascular Disease
DX: I25.10 Atherosclerotic heart disease of native coronary artery without angina pectoris (principal)
CPT/HCPCS: 99214; G2211

== ENCOUNTER → 2025-05-08 14:16 | Outpatient (BNVA) | payer MEDICARE, MEDICAID, SELFPAY | PROVIDERS: PCP Internal Medicine; Visit Provider Internal Medicine Cardiovascular Disease | DX: I25.10 Atherosclerotic heart disease of native coronary artery without angina pectoris (principal); I10 Essential (primary) hypertension; Z98.890 Other specified postprocedural states; M25.562 Pain in left knee; M25.561 Pain in right knee | CPT/HCPCS: 99212 ==

== ENCOUNTER 2025-05-10 14:36 | Outpatient (AMB) | payer MEDICARE, MEDICAID, SELFPAY ==
[2025-05-10 14:44] VITALS: BP 128/64; BMI 36.9
--- NOTE | 2025-05-10 14:44 | A.OFFPC_ITS ---
Vital Signs 05/10/25 14:44 Height 5 ft Weight 189 lb BMI 36.9 BP 128/64 Blood Pressure Location Lt brachial Position Sitting Intake Visit Reasons: 4 Month F/U Intake Note: Patient here for a 4 month follow up Ammonia Refrigeration Technician Required: No Accompanied by: Daughter Allergies seafood Allergy (Severe, Verified 05/10/25 15:17) Anaphylaxis Medication List - Last Reconciled 05/10/25 by Fang Solitario MD allopurinol 100 mg PO DAILY 90 days aspirin (Adult Aspirin Regimen) 81 mg PO DAILY 90 days atorvastatin 40 mg PO DAILY blood sugar diagnostic As directed-BID blood sugar diagnostic As directed- BID blood-glucose meter As directed-BID dorzolamide-timolol 22.3-6.8 mg/mL 1 drp ophthalmic-Right BID insulin degludec (Tresiba FlexTouch U-100 insulin) 44 units (0.44 mL) subcut BEDTIME 90 days isosorbide mononitrate ER 30 mg PO DAILY lancets Use 1 lancet twice a day metformin 1,000 mg PO BID metoprolol succinate ER 25 mg PO DAILY multivit with min-folic acid 80 mcg (Centrum Adult 50 Plus) 1 tab PO DAILY olmesartan 40 mg PO DAILY omeprazole 20 mg PO DAILY 90 days pen needle, diabetic USE EVERY DAY sennosides-docusate sodium 8.6-50 mg (Senna Plus) 2 tab-caps (2 x 8.6-50 mg) PO BEDTIME PRN Trulicity (dulaglutide) 3 mg (0.5 mL) subcut QWEEK NS Tobacco use date assessed: 01/11/25 Fall risk assessment: No Falls in past year Last assessed Fall Risk: 05/10/25 Dental Screening Dental Screen Date: 01/11/25 HPI HPI Comments History of Present Illness Details The patient is an 85-year-old male presenting with the management of chronic conditions including diabetes mellitus, hyperlipidemia, and hypertension. Also has gout with no reported attacks. The patient has a history of hyperlipidemia, managed with atorvastatin 40 mg, which has been effective as recent laboratory results showed LDL levels below 70 mg/dL. The patient is also on aspirin 81 mg for cardiovascular protection. The patient has diabetes mellitus, which has been challenging to manage due to fluctuating blood glucose levels. Recently, the dose of Trulicity was increased, and the patient received the first dose on Thursday. There is concern about hypoglycemia, as blood glucose levels have dropped to 98 mg/dL, with a previous low of 84 mg/dL. Hypertension is being managed with olmesartan and metoprolol, with a target blood pressure of less than 120/80 mmHg. The patient also takes a multivitamin and omeprazole for acid reflux. The patient has a history of coronary artery disease, with a recent CT scan indicating a partially occluded coronary artery. Follow-up with a cane weigher helper is planned to monitor this condition. 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 Mother Diabetes Brother Hx of CABG Diabetes Hypertension Daughter No problems noted. Daughter No problems noted. Social History Housing: Apartment Alcohol intake: former Year quit: 2011 Patient Tobacco Use Status: Former Tobacco user Tobacco use type: Cigarette Years Smoked: 2011 e-Cigarette/Vaping Use: Never Used Second Hand Smoke Exposure: Yes service: No Current occupational status: disabled Cognitive needs: Yes Hearing needs: No Vision needs: No Questionnaire PHQ-9 Over the last 2 weeks, how often have you been bothered by any of the following problems? 1. Little interest or pleasure in doing things: not at all 2. Feeling down, depressed, or hopeless: not at all 3. Trouble falling or staying asleep, or sleeping too much: not at all 4. Feeling tired or having little energy: not at all 5. Poor appetite or overeating: not at all 6. Feeling bad about yourself - or that you are a failure or have let yourself or your family down: not at all 7. Trouble concentrating on things, such as reading the newspaper or watching television: not at all 8. Moving or speaking so slowly that other people could have noticed. Or the opposite - being so fidgety or restless that you have been moving around a lot more than usual: not at all 9. Thoughts that you would be better off or of hurting yourself in some way: not at all Total score: 0 Depression Screening Interpretation: Negative Depression Screening Done: Yes 44102 - PHQ-9 Billing: Yes Source: Developed by Drs. Byron Wu, Lisy Turner, Jame King and colleagues, with an educational belen from [employer]. Thrive Questionnaire Date Thrive assessed: 01/11/25 I am a: Parent/Caregiver What is your living situation today?: I have a steady place to live Within the past 12 months, did the food you bought not last and you didn't have the money to get more?: Never true Within the past 12 months, did you worry whether your food would run out before you got money to buy more?: Never true Do you have trouble paying for medicines?: No Do you have trouble getting transportation to medical appointments?: No Do you have trouble paying your heating and electricity bill?: No Do you have trouble taking care of your child, family member or friend?: No Do you have trouble with day-to-day activities such as bathing, preparing meals, shopping, managing finances, etc.?: No Are you currently unemployed and looking for a job?: No Are you interested in more education?: No Please select the resources that you would like help with: None Currently or been in a relationship where the following occur: No concerns reported THRIVE Score: 0 AUDIT C Alcohol Use Questionnaire (AUDIT-C) 1. How often do you have a drink containing alcohol?: Never Total Score: 0 Score Reviewed/Action Taken: No DIONNE-7 AMB Questionnaire DIONNE-7 Date DIONNE - 7 assessed: 01/11/25 Feeling nervous, anxious, or on edge: 0 = Not at all Not being able to stop or control worryin = Not at all Worrying too much about different things: 0 = Not at all Trouble relaxin = Not at all Being so restless that it is hard to sit still: 0 = Not at all Becoming easily annoyed or irritable: 0 = Not at all Feeling afraid as if something awful might happen: 0 = Not at all Total DIONNE-7 score (0-4 normal; 5-9 mild; 10-14 moderate; 15-21 severe): 0 Source: Developed by Drs. Byron Wu, Lisy Turner, Jame King and colleagues, with an educational belen from [employer]. DIONNE-7 Assessment Billing DIONNE-7 Assessment Tool: DIONNE-7 Assessment 74653 Review of Systems Const All systems reviewed & are unremarkable except as noted in HPI and below Card Denies chest pain at rest, Denies chest pain with activity, Denies edema, Denies irregular heart rhythm, Denies claudication, Denies dyspnea, Denies dyspnea on exertion, Denies orthopnea, Denies paroxysmal nocturnal dyspnea and Denies slow heart rate Resp Denies cough, Denies dyspnea and Denies dyspnea on exertion GI Denies abdominal pain, Denies change in bowel habits, Denies excessive flatus, Denies nausea and Denies vomiting Denies urinary hesitancy, Denies urinary incontinence and Denies urinary urgency Physical exam (Primary Care) Vital Signs: Last Vital Signs BP 128/64 05/10/25 14:44 BMI result Body Mass Index 36.9 BMI Assessment/Plan discussion: High BMI High, discussed plan: lifestyle, weight reduction, dietary and physical activity Tobacco/Smoking Status: Tobacco use Status Tobacco use date assessed 01/11/25 05/10/25 14:51 Patient Tobacco Use Status Former Tobacco user 05/10/25 14:51 Tobacco use type Cigarette 05/10/25 14:51 e-Cigarette/Vaping Use Never Used 05/10/25 14:51 PHQ-9: PHQ-9 Score PHQ-9: Total score 0 05/10/25 15:21 Depression Screening Interpretation: Negative Thrive Assessment: Date of Thrive Assessment Date Thrive assessed 01/11/25 05/10/25 14:51 Currently or been in a relationship where the following occur: No concerns reported Resp Effort & Inspection: normal respiratory effort Auscultation: clear to auscultation bilaterally Cardio Jugular venous distension: no JVD Rate: regular rate Rhythm: regular rhythm Heart sounds: S1 normal heart sound present and S2 normal heart sound present Extrem General: Yes full ROM Coding Level of Care Code Est Pt Level 4 (31533) Complex EM visit Add On G2211 Diagnoses CAD (coronary artery disease) I25.10 Type 2 diabetes mellitus with hyperglycemia, with long-term current use of insulin E11.65; Z79.4 Diabetes mellitus group home insulin use: 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 Essential hypertension I10 Idiopathic chronic gout without tophus, unspecified site M1A.00X0 Gout site: unspecified site Gout etiology: idiopathic Chronicity: chronic Presence of tophus: without tophus Hypercholesterolemia E78.00 Additional Codes DIONNE-7 Assessment Billing - DIONNE-7 Assessment Tool: DIONNE-7 Assessment 99066 ([id number]) PHQ-9 - 44505 - PHQ-9 Billing: Yes ([id number]) Time Spent (min) 22 Assessment & Plan Assessment & Plan (1) CAD (coronary artery disease): Comment: Coronary CTA showing 70-90% stenosis in the paroxysmal circumflex artery with mild disease in the LAD and moderate disease in the RCA Code(s): I25.10 - Atherosclerotic heart disease of habematolel coronary artery without angina pectoris Category: Medical (2) Type 2 diabetes mellitus with hyperglycemia: Code(s): E11.65 - Type 2 diabetes mellitus with hyperglycemia Category: Medical Qualifiers: Diabetes mellitus group home insulin use: with group home use Qualified Code(s): E11.65 - Type 2 diabetes mellitus with hyperglycemia; Z79.4 - detention (current) use of insulin (3) Essential hypertension: Code(s): I10 - Essential (primary) hypertension Category: Medical (4) Gout: Code(s): M10.9 - Gout, unspecified Category: Medical Qualifiers: Gout site: unspecified site Gout etiology: idiopathic Chronicity: chronic Presence of tophus: without tophus Qualified Code(s): M1A.00X0 - Idiopathic chronic gout, unspecified site, without tophus (tophi) (5) Hypercholesterolemia: Code(s): E78.00 - Pure hypercholesterolemia, unspecified Category: Medical Plan The management plan for the patient's hyperlipidemia includes continuing atorvastatin 40 mg, with a target LDL cholesterol of less than 55 mg/dL. For diabetes mellitus, the patient will continue with the adjusted dose of Trulicity, monitoring blood glucose levels closely to avoid hypoglycemia. The patient is advised to maintain a balanced diet and monitor blood sugar levels regularly. Hypertension management includes continuing olmesartan and metoprolol, aiming for a blood pressure target of less than 120/80 mmHg. Regular follow-up appointments are necessary to monitor blood pressure and adjust medications as needed. For coronary artery disease, follow-up with a cane weigher helper is planned to assess the need for further intervention based on the CT scan results. Patient was informed and verbally consented to the use of an ambient scribe for clinic note documentation during this visit. During the visit, we discussed the importance of maintaining target levels for LDL cholesterol and blood pressure to prevent further cardiovascular complications. I emphasized the need for regular monitoring of blood glucose levels to avoid hypoglycemia, especially with the recent adjustment in Trulicity dosage. We also reviewed the CT scan results indicating a partially occluded coronary artery and planned for a follow-up with a cane weigher helper to determine the next steps. Orders: Orders Vitamin D 25-OH Total 4 Months E55.9 - Vitamin D deficiency, unspecified Comprehensive [place]. Panel Fast 4 Months E11.29 - Type 2 diabetes mellitus with other diabetic kidney complication, R80.9 - Proteinuria, unspecified Lipid Panel 4 Months E78.5 - Hyperlipidemia, unspecified Microalbumin, Random (w Creat) 4 Months R80.9 - Proteinuria, unspecified Patient Instructions: - Continue taking atorvastatin 40 mg daily. - Monitor blood glucose levels regularly and report any episodes of hypoglycemia. - Maintain a balanced diet and exercise regularly. - Follow up with the cane weigher helper as scheduled.
--- OUTSIDE RECORDS SUMMARY | 2025-05-10 16:47 | XMS_ITS | Clinical Summary ---
Author Organization [facility] Address [address] [facility] [address] [place] [address] Phone Care Team Providers Care Sewer Pipe Layer Helper Name Role Phone Fang Jenkins MD Primary Care Provider [phone] Allergies No known active allergies Medications omeprazole [...] Health Medicare [facility] [employer] Medicare Care Teams Sewer Pipe Layer Helper Relationship Specialty Start Date End Date Fang Jenkins MD [address] [place] [address] PCP - General 12/10/20
== END 2025-05-10 15:34 | disposition home or self-care (01) ==
LOC: HO.HMCH 14:37
PROVIDERS: PCP Internal Medicine; Visit Provider Internal Medicine
DX: I25.10 Atherosclerotic heart disease of native coronary artery without angina pectoris (principal); E11.65 Type 2 diabetes mellitus with hyperglycemia; Z79.4 Long term (current) use of insulin; I10 Essential (primary) hypertension; M1A.00X0 Idiopathic chronic gout, unspecified site, without tophus (tophi); E78.00 Pure hypercholesterolemia, unspecified

== ENCOUNTER → 2025-05-10 14:36 | Outpatient (BNVA) | payer MEDICARE, MEDICAID, SELFPAY | PROVIDERS: PCP Internal Medicine; Visit Provider Internal Medicine | DX: E11.65 Type 2 diabetes mellitus with hyperglycemia (principal); E11.29 Type 2 diabetes mellitus with other diabetic kidney complication; I10 Essential (primary) hypertension; E78.5 Hyperlipidemia, unspecified; I25.10 Atherosclerotic heart disease of native coronary artery without angina pectoris; E78.00 Pure hypercholesterolemia, unspecified; E55.9 Vitamin D deficiency, unspecified; R80.9 Proteinuria, unspecified; Z79.4 Long term (current) use of insulin | CPT/HCPCS: 96127; 99212 ==

== ENCOUNTER 2025-07-27 07:46 | Outpatient (REF) | payer MEDICARE, MEDICAID, SELFPAY ==
--- OUTSIDE RECORDS SUMMARY | 2025-07-27 07:48 | XMS_ITS | Clinical Summary ---
Author Organization [facility] Address [address] [facility] [address] [place] [address] Phone Care Team Providers Care Automobile Parker Name Role Phone Fang Jenkins MD Primary Care Provider [phone] Allergies No known active allergies Medications omeprazole [...] Visual Foot Exam 12/31/2020 Influenza Vaccine (#1) 2025 Hepatitis B Vaccine Aged Out No longe r eligible based on patient's age to complete this topic Insurance [facility] Medicare [facility] Medicare Care Teams Automobile Parker Relationship Specialty Start Date End Date Fang Jenkins MD [address] [place] [address] PCP - General 12/10/20
--- OUTSIDE RECORDS SUMMARY | 2025-07-27 07:48 | XMS_ITS | Clinical Summary ---
Author Organization [address] [facility] Address [address] [place] [address] Phone Care Team Providers Care Radio Tower Technician Name Role Phone Fang Solitario MD Primary Care Provider [phone] Social History Tobacco Use Types Packs/Day Years Used Date Smoking Tobacco: Never Assessed Sex and Gender Information Value Date Recorded Sex Assigned at Not on file Legal Sex Male 8:31 AM EST Gender Identity Not on file Sexual Orientation Not on file Plan of Treatment Health Maintenance Due Date [...] 08/23/2021, 08/02/2021 Cholesterol Screening (Lipid Panel) 10/13/2024 Falls Risk Assessment 10/13/2024 Medicare Annual Wellness Visit 10/13/2024 Social Influencers of Health Screening 10/13/2024 Depression Screening 11/30/2024 Diabetes: Annual Urine Albumin-Creatinine Ratio (uACR) 01/26/2025 Diabetes: Blood Sugar Control Test (HGBA1C) 01/26/2025 Hypertension/CHF/CAD Annual BMP Blood Test 01/26/2025 Influenza Vaccine (#1) 2025 , 10/06/2023, 09/18/2022, Additional history exists Pneumococcal Vaccine: 50+ Years Completed 09/20/2019, 07/28/2018 HIB Vaccines Aged Out No longer eligi [...] [place] [facility] [employer] Care Teams Radio Tower Technician Relationship Specialty Start Date End Date Fang Solitario MD [address] [place] [address] , [address] [facility] D/B/A: [facility] ISAAK Treviño PCP - General Internal Medicine 10/13/24
[2025-07-27 09:36] LABS: Cholesterol 104 mg/dL (<200); HDL Cholesterol 33 mg/dL (>40); Triglycerides 85 mg/dL (<150)
== END 2025-07-27 07:47 | disposition home or self-care (01) ==
LOC: HO.LAB 07:46
PROVIDERS: PCP Internal Medicine; Visit Provider Internal Medicine Cardiovascular Disease
DX: I25.10 Atherosclerotic heart disease of native coronary artery without angina pectoris (principal)
CPT/HCPCS: 36415; 80061

== ENCOUNTER 2025-08-02 14:21 | Outpatient (AMB) | payer MEDICARE, MEDICAID, SELFPAY ==
--- NOTE | 2025-08-02 14:30 | A.OFFVIS_ITS ---
Vital Signs 08/02/25 14:31 Height 5 ft Weight 189 lb 9.561 oz BMI 37.0 BP 120/80 Blood Pressure Location Rt brachial Position Sitting Pulse 64 Pulse Source Pulse Oximeter Pulse Oximetry (%) 94 Oxygen Delivery Method Room Air Intake Visit Reasons: DM Intake Note: Patient presents today for a follow-up on Type 2 Diabetes Mellitus: Last Diabetic eye exam was on: 10/23 Last Podiatry exam was on: 01/26/2025, [facility]. Most recent HbA1c: 8.1%, 08/02/2025 Random Glucose- 110 mg/dL, Today Accompanied by: Daughter Allergies seafood Allergy (Severe, Verified 08/02/25 14:34) Anaphylaxis HPI Comments Details: The patient is an 85-year-old male presenting with diabetes mellitus. Medical history: hypertension, GERD, gout, CAD Unclear diagnosis. At least 15 years. Was living in [place] prior Current medications: Tresiba 44 metformin 1000mg twice daily, trulicity 3.0mg weekly. increase to 4.5 today HbA1C 8.1% from 9.3 from 10.7% 01/11/2025. Meter downloaded-checking BI. 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 Coronary CT with CAD. Will follow up with cardiology. LDL <70 Follows podiatry -Dr [place] Eye exam 12/2023 ROS CONSTITUTIONAL: Denies weight loss, fever and chills. HEENT: Denies changes in vision and hearing. RESPIRATORY: Denies SOB and cough. CV: Denies palpitations and CP GI: Denies abdominal pain, nausea, vomiting and diarrhea. : Denies dysuria and urinary frequency. MSK: Denies new myalgia and joint pain. SKIN: Denies rash and pruritus. NEUROLOGICAL: Denies headache PSYCHIATRIC: Denies recent changes in mood. PHYSICAL EXAM: GENERAL: Alert and oriented x 3. NAD EYES: EOMI. Anicteric. HENT: Moist mucous membranes. No scleral icterus. No cervical lymphadenopathy. LUNGS: Clear to auscultation bilaterally. CARDIOVASCULAR: Regular rate and rhythm. ABDOMEN: Soft, non-tender +bs EXTREMITIES: Trace bilateral pitting edema SKIN: No rashes or lesions. Warm. NEUROLOGIC: No focal neurological deficits. CN II-XII grossly intact PSYCHIATRIC: Cooperative. Appropriate mood and affect [facility] Medical History CAD (coronary artery disease) Diabetes mellitus Dyslipidemia nursing home (current) use of insulin Class 2 obesity with body mass index (BMI) of 37.0 to 37.9 in adult Blind in both eyes Microalbuminuria Leg edema Essential hypertension Gout Surgical History History of cataract surgery History of eye surgery Family History Father No problems noted. Mother Diabetes Brother Hx of CABG Diabetes Hypertension Daughter No problems noted. Daughter No problems noted. Social History Housing: Apartment Alcohol intake: former Year quit: 2011 Patient Tobacco Use Status: Former Tobacco user Tobacco use type: Cigarette Years Smoked: 2011 e-Cigarette/Vaping Use: Never Used Second Hand Smoke Exposure: Yes service: No Current occupational status: disabled Cognitive needs: Yes Hearing needs: No Vision needs: No Physical Exam Vital Signs: Last Vital Signs Pulse 64 08/02/25 14:31 Pulse Ox 94 08/02/25 14:31 Oxygen Delivery Method Room Air 08/02/25 14:31 BMI result Body Mass Index 37.0 Results AMB Hemoglobin A1c AMB Hemoglobin A1c 8.1 % Last Edit by ORION Thomas on 08/02/25 14:49 Results Reviewed Results Reviewed: Laboratory Last Values Glucose (Clinic) 110 mg/dL (60-115) 08/02/25 14:38 Hgb A1c (Clinic) 8.1 % (4.0-6.0) H 08/02/25 14:48 Assessment & Plan Assessment & Plan (1) Type 2 diabetes mellitus with hyperglycemia: Code(s): E11.65 - Type 2 diabetes mellitus with hyperglycemia Category: Medical Qualifiers: Diabetes mellitus mcfp insulin use: with mcfp use Qualified Code(s): E11.65 - Type 2 diabetes mellitus with hyperglycemia; Z79.4 - nursing home (current) use of insulin (2) CKD (chronic kidney disease) stage 3, GFR 30-59 ml/min: Code(s): N18.30 - Chronic kidney disease, stage 3 unspecified Category: Medical Qualifiers: Chronic kidney disease stage 3 subtype: stage 3a (GFR 45-59) Qualified Code(s): N18.31 - Chronic kidney disease, stage 3a Plan Diabetes-much improved A1C Tolerating medications well. Increase trulicity to 4.5. 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 To OneTouch Ultra Test (blood sugar diagnostic) As directed- BID One touch test strips SADE 200 ea 3RF NS E11.65 - Type 2 diabetes mellitus with hyperglycemia, Z79.4 - 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
[2025-08-02 14:31] VITALS: BP 120/80; PULSE 64; O2SAT 94; BMI 37.0
[2025-08-02 14:42] LABS: Glucose, Whole Blood 110 mg/dL (60-115)
--- OUTSIDE RECORDS SUMMARY | 2025-08-02 16:40 | XMS_ITS | Clinical Summary ---
Author Organization [facility] Address [address] [facility] [address] [place] [address] Phone Care Team Providers Care Telegrapher Agent Name Role Phone Fang Jenkins MD Primary Care Provider [phone] Allergies No known active allergies Medications omeprazole [...] Health Medicare [employer] [employer] Medicare Care Teams Telegrapher Agent Relationship Specialty Start Date End Date Fang Jenkins MD [address] [place] [address] PCP - General 12/10/20
--- OUTSIDE RECORDS SUMMARY | 2025-08-02 16:40 | XMS_ITS | Clinical Summary ---
Author Organization [address] [facility] Address [address] [place] [address] Phone Care Team Providers Care Spot Worker Name Role Phone Fang Solitario MD Primary Care Provider [phone] Social History Tobacco Use Types Packs/Day Years [...] Patients (1 - 1-dose 75+ series) 2017 Cholesterol Screening (Lipid Panel) 10/13/2024 Falls Risk Assessment 10/13/2024 Medicare Annual Wellness Visit 10/13/2024 Social Influencers of Health Screening 10/13/2024 Depression Screening 11/30/2024 Diabetes: Annual Urine Albumin-Creatinine Ratio (uACR) 01/26/2025 Diabetes: Blood Sugar Control Test (HGBA1C) 01/26/2025 Hypertension/CHF/CAD Annual BMP Blood Test 01/26/2025 COVID-19 Vaccine ( season) 2025 03/06/2022, 08/23/2021, 08/02/2021 Influenza Vaccine (#1) 2025 , 10/06/2023, 09/18/2022, [...] [place] [facility] [employer] Care Teams Spot Worker Relationship Specialty Start Date End Date Fang Solitario MD [address] [place] [address] , [address] [facility] D/B/A: [facility] ISAAK Treviño PCP - General Internal Medicine 10/13/24
== END 2025-08-02 14:59 | disposition home or self-care (01) ==
LOC: HO.ENCR 14:22
PROVIDERS: PCP Internal Medicine; Visit Provider Internal Medicine
DX: E11.65 Type 2 diabetes mellitus with hyperglycemia (principal); Z79.4 Long term (current) use of insulin; N18.31 Chronic kidney disease, stage 3a

== ENCOUNTER → 2025-08-02 14:21 | Outpatient (BNVA) | payer MEDICARE, MEDICAID, SELFPAY | PROVIDERS: PCP Internal Medicine; Visit Provider Internal Medicine | DX: E11.65 Type 2 diabetes mellitus with hyperglycemia (principal); Z79.4 Long term (current) use of insulin; N18.31 Chronic kidney disease, stage 3a | CPT/HCPCS: 82947; 83036; 99212 ==

== ENCOUNTER 2025-08-18 12:47 | Outpatient (AMB) | payer MEDICARE, MEDICAID, SELFPAY ==
[2025-08-18 12:49] VITALS: BP 112/60; PULSE 79; BMI 36.7
--- NOTE | 2025-08-18 12:49 | MHC.OFFVIS ---
Vital Signs 08/18/25 12:49 Height 5 ft Weight 187 lb 13.341 oz BMI 36.7 BP 112/60 Blood Pressure Location Lt brachial Position Sitting Pulse 79 Pulse Source Pulse Oximeter Intake Visit Reasons: 3 mth f/up Intake Note: 3 month follow up . Retanned Leather Roller Services: Retanned Leather Roller Offered & Declined Accompanied by: Daughter Allergies seafood Allergy (Severe, Verified 08/18/25 12:54) Anaphylaxis HPI Comments Details: This is an 85-year-old male patient coming in for a follow-up visit, accompanied by his daughter who helps with the Swedish interpretation throughout the visit. Patient with medical history of hypertension, hyperlipidemia, diabetes, obesity, and coronary artery disease as seen on coronary CTA. Patient notes that he has been losing some weight on the Trulicity and his diabetes is getting better otherwise is denying any cardiac symptoms of exertional chest pain, shortness of breath, palpitations, dizziness, orthopnea, PND, leg edema, presyncope, or syncope. Daughter states that patient is trying to stay more active since he is losing some weight. Patient is otherwise compliant with all his medications. [facility] Medical History CAD (coronary artery disease) Diabetes mellitus Dyslipidemia correction (current) use of insulin Class 2 obesity with body mass index (BMI) of 37.0 to 37.9 in adult Blind in both eyes Microalbuminuria Leg edema Essential hypertension Gout Surgical History History of cataract surgery History of eye surgery Family History Father No problems noted. Mother Diabetes Brother Hx of CABG Diabetes Hypertension Daughter No problems noted. Daughter No problems noted. Social History Housing: Apartment Alcohol intake: former Year quit: 2011 Patient Tobacco Use Status: Former Tobacco user Tobacco use type: Cigarette Years Smoked: 2011 e-Cigarette/Vaping Use: Never Used Second Hand Smoke Exposure: Yes service: No Current occupational status: disabled Cognitive needs: Yes Hearing needs: No Vision needs: No Review of Systems Const Denies daytime sleepiness, Denies difficulty sleeping, Denies snoring, Denies stops breathing during sleep and Denies weakness Card Denies chest pain, Denies rapid heart rate, Denies irregular heart rhythm, Denies claudication, Denies leg edema, Denies lightheadedness, Denies palpitations, Denies dyspnea, Reports dyspnea on exertion, Denies orthopnea, Denies paroxysmal nocturnal dyspnea and Denies slow heart rate Resp Denies cough, Denies dyspnea, Reports dyspnea on exertion and Denies snoring GI Reports no additional complaints, Denies hematochezia, Denies change in stool character and Denies dyspepsia Musc Denies abnormal gait, Denies muscle weakness and Denies numbness Neuro Denies abnormal gait, Denies numbness and Denies weakness Endo Denies palpitations Physical Exam Vital Signs: Last Vital Signs Pulse 79 08/18/25 12:49 BP 112/60 08/18/25 12:49 BMI result Body Mass Index 36.7 Const General: cooperative, healthy appearing, comfortable and no acute distress Orientation/consciousness: patient oriented x3 HEENT Other: Legally blind Head: Yes normal to inspection Neck Neck: Yes normal visual inspection, Yes trachea midline and Yes supple Chest Chest palpation & inspection: normal inspection of the chest Resp Effort & Inspection: normal respiratory effort Auscultation: clear to auscultation bilaterally, no crackles, no rales, no rhonchi and no wheezes Cardio Jugular venous distension: no JVD Palpation: normal PMI Rate: regular rate Rhythm: regular rhythm Heart sounds: S1 normal heart sound present, S2 normal heart sound present, no click, no gallops, no murmurs and no rubs Peripheral pulses: Peripheral pulses 2+ throughout GI Inspection: Yes normal to inspection Palpation (GI): Soft to palpation Auscultation: normal bowel sounds Skin General skin exam: no rashes or lesions noted Neuro General: patient oriented x3 Extrem General: Yes normal to inspection, No no pedal edema and No calf tenderness Psych Appearance: grossly normal Mental Status: mental status grossly normal Speech and movement: Normal speech and movement present Assessment & Plan Assessment & Plan (1) CAD (coronary artery disease): Comment: Coronary CTA showing 70-90% stenosis in the paroxysmal circumflex artery with mild disease in the LAD and moderate disease in the RCA Code(s): I25.10 - Atherosclerotic heart disease of torres martinez coronary artery without angina pectoris Category: Medical Plan: 01/24/2025-echo study showed a normal LV systolic function with an ejection fraction at 67%, with moderate septal asymmetric hypertrophy. 01/31/2025-patient underwent a myocardial perfusion study that showed moderate to severe intensity ischemia in the diagnostic territory as well as mild intensity in the RCA. 04/19/2025-coronary CTA shows mild disease in the LAD, and [id number] disease in the left circumflex artery. Clinically stable and without any cardiac symptoms at this time. Continue with isosorbide and metoprolol therapy. Continue baby aspirin therapy. Reiterated the plan of pursuing cardiac catheterization in case of patient developing any significant symptoms of angina to which both the patient and the daughter is in agreement. Continue statin therapy with an LDL goal less than 70. Most recent LDL at 54. Advised to seek ER care in case of exertional chest pain not resolved with rest. (2) Essential hypertension: Code(s): I10 - Essential (primary) hypertension Category: Medical Plan: Blood pressure today is well-controlled. Continue current regimen. Advised monitoring blood pressures at home with a goal less than 130/80. Advised low-salt diet. (3) Hypercholesterolemia: Code(s): E78.00 - Pure hypercholesterolemia, unspecified Category: Medical Plan: As above. (4) Type 2 diabetes mellitus with hyperglycemia: Code(s): E11.65 - Type 2 diabetes mellitus with hyperglycemia Category: Medical Qualifiers: Diabetes mellitus half-way insulin use: with intermediate project manager use Qualified Code(s): E11.65 - Type 2 diabetes mellitus with hyperglycemia; Z79.4 - correction (current) use of insulin Plan: Patient's A1c improved to 8.3%. Continue aggressive diabetes management with an A1c goal less than 7%. Followed by endocrinology. (5) Class 2 obesity with body mass index (BMI) of 37.0 to 37.9 in adult: Code(s): E66.9 - Obesity, unspecified; Z68.37 - Body mass index [BMI] 37.0-37.9, adult Category: Medical Qualifiers: Obesity type: due to excess calories Serious obesity comorbidity presence: with serious comorbidity Qualified Code(s): E66.812 - Obesity, class 2; E66.01 - Morbid (severe) obesity due to excess calories; Z68.37 - Body mass index [BMI] 37.0-37.9, adult Plan: Patient is now on higher dose of Trulicity and has been losing weight on this. Advised heart healthy diet, regular exercise as tolerated, weight loss, med compliance, and management of vascular risk factors. Follow up in 3 months. In the interim, patient will call the office with any concerns or change in symptoms. This note was generated using voice recognition software. While every effort has been made to ensure accuracy and proper doll dresser, there may be occasional errors that could affect the content or meaning of the described symptoms. Coding Level of Care Code Est Pt Level 4 (12652) Complex EM visit Add On G2211 Diagnoses CAD (coronary artery disease) I25.10 Essential hypertension I10 Hypercholesterolemia E78.00 Type 2 diabetes mellitus with hyperglycemia, with long-term current use of insulin E11.65; Z79.4 Diabetes mellitus half-way insulin use: with intermediate project manager use Class 2 severe obesity due to excess calories with serious comorbidity and body mass index (BMI) of 37.0 to 37.9 in adult E66.812; E66.01; Z68.37 Obesity type: due to excess calories Serious obesity comorbidity presence: with serious comorbidity Time Spent (min) 32 Comment Time spent in reviewing the chart, test results, assessment, counseling and documentation.
--- OUTSIDE RECORDS SUMMARY | 2025-08-18 12:50 | XMS_ITS | Clinical Summary ---
Author Organization [address] [facility] Address [address] [place] [address] Phone Care Team Providers Care Experimental Physicist Name Role Phone Fang Solitario MD Primary Care Provider [phone] Social History Tobacco Use Types Packs/Day Years [...] [place] [facility] [employer] Care Teams Experimental Physicist Relationship Specialty Start Date End Date Fang Solitario MD [address] [place] [address] , [address] [facility] ISAAK Treviño PCP - General Internal Medicine 10/13/24
--- OUTSIDE RECORDS SUMMARY | 2025-08-18 12:50 | XMS_ITS | Clinical Summary ---
Author Organization [facility] Address [address] [facility] [address] [place] [address] Phone Care Team Providers Care Budget Report Clerk Name Role Phone Fang Jenkins MD Primary Care Provider [phone] Allergies No known active allergies Medications omeprazole [...] Health Medicare [facility] Medicare Care Teams Budget Report Clerk Relationship Specialty Start Date End Date Fang Jenkins MD [address] [place] [address] PCP - General 12/10/20
== END 2025-08-18 13:30 | disposition home or self-care (01) ==
LOC: HO.HCS 12:47
PROVIDERS: PCP Internal Medicine
DX: I25.10 Atherosclerotic heart disease of native coronary artery without angina pectoris (principal); I10 Essential (primary) hypertension; E78.00 Pure hypercholesterolemia, unspecified; E11.65 Type 2 diabetes mellitus with hyperglycemia; Z79.4 Long term (current) use of insulin; E66.812 Obesity, class 2; E66.01 Morbid (severe) obesity due to excess calories; Z68.37 Body mass index [BMI] 37.0-37.9, adult
CPT/HCPCS: 99214; G2211

== ENCOUNTER → 2025-08-18 12:47 | Outpatient (BNVA) | payer MEDICARE, MEDICAID, SELFPAY | PROVIDERS: PCP Internal Medicine | DX: I25.10 Atherosclerotic heart disease of native coronary artery without angina pectoris (principal); I10 Essential (primary) hypertension; E78.00 Pure hypercholesterolemia, unspecified; E11.65 Type 2 diabetes mellitus with hyperglycemia; Z79.4 Long term (current) use of insulin; E66.01 Morbid (severe) obesity due to excess calories; E66.812 Obesity, class 2; Z68.37 Body mass index [BMI] 37.0-37.9, adult | CPT/HCPCS: 99212 ==

== ENCOUNTER 2025-09-11 16:10 | Outpatient (AMB) | payer MEDICARE, MEDICAID, SELFPAY ==
--- OUTSIDE RECORDS SUMMARY | 2025-09-11 16:13 | XMS_ITS | Clinical Summary ---
Author Organization [address] [facility] Address [address] [place] [address] Phone Care Team Providers Care Prototype Sewer Name Role Phone Fang Solitario MD Primary Care Provider [phone] Social History Tobacco Use Types Packs/Day Years [...] [place] [facility] [employer] Care Teams Prototype Sewer Relationship Specialty Start Date End Date Fang Solitario MD [address] [place] [address] , [address] [facility] ISAAK Treviño PCP - General Internal Medicine 10/13/24
--- OUTSIDE RECORDS SUMMARY | 2025-09-11 16:13 | XMS_ITS | Clinical Summary ---
Author Organization [facility] Address [address] [facility] [address] [place] [address] Phone Care Team Providers Care Dietary Aide Cook Name Role Phone Fang Jenkins MD Primary Care Provider [phone] Allergies No known active allergies Medications omeprazole [...] Health Medicare [facility] Medicare Care Teams Dietary Aide Cook Relationship Specialty Start Date End Date Fang Jenkins MD [address] [address] [address] [place] [address] PCP - General 12/10/20
--- NOTE | 2025-09-11 16:14 | MHC.PC.OV ---
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: No Accompanied by: Self / Same As Patient Allergies seafood Allergy (Severe, Verified 09/11/25 16:41) Anaphylaxis Medication List - Last Reconciled 09/11/25 by Fang Solitario MD Accu-Chek Guide test strips (blood sugar diagnostic) 1 strip miscellaneous .twice daily NS allopurinol 100 mg PO DAILY 90 days aspirin (Adult Aspirin Regimen) 81 mg PO DAILY 90 days atorvastatin 40 mg PO DAILY blood sugar diagnostic As directed-BID blood sugar diagnostic As directed- BID blood-glucose meter As directed-BID dorzolamide-timolol 22.3-6.8 mg/mL 1 drp ophthalmic-Right BID insulin degludec (Tresiba FlexTouch U-100 insulin) 44 units (0.44 mL) subcut BEDTIME 90 days isosorbide mononitrate ER 30 mg PO DAILY lancets Use 1 lancet twice a day metformin 1,000 mg PO BID metoprolol succinate ER 25 mg PO DAILY multivit with min-folic acid 80 mcg (Centrum Adult 50 Plus) 1 tab PO DAILY olmesartan 40 mg PO DAILY omeprazole 20 mg PO DAILY 90 days pen needle, diabetic USE EVERY DAY sennosides-docusate sodium 8.6-50 mg (Senna Plus) 2 tab-caps (2 x 8.6-50 mg) PO BEDTIME PRN Trulicity (dulaglutide) 4.5 mg (0.5 mL) subcut QWEEK NS Tobacco use date assessed: 09/11/25 Fall risk assessment: 1 Fall in past year Last assessed Fall Risk: 09/11/25 Dental Screening Dental Screen Date: 09/11/25 Did you have a dental visit in the last 12 months?: No Did you have a dental problem in the last 6 months where you did not have access to dental care?: No Was dental information given to patient?: No HPI HPI Comments History of Present Illness Details The patient is an 85-year-old male presenting with diabetes and hypertension management. The patient has a history of diabetes mellitus, managed with medications including metformin and Trulicity, with current control indicated by stable blood glucose levels. Hypertension is managed with olmesartan and other antihypertensives, with recent blood pressure readings at the edge of normal limits. The patient also has hyperlipidemia, with recent lab results showing LDL cholesterol at 54 mg/dL, which is within the target range. Microalbuminuria has been noted, with protein levels in urine elevated to 311 mg/g, a significant increase from previous levels of 100 mg/g. The patient is under nephrology care for this condition. The patient reports an allergy to seafood and experiences constipation, managed with senna as needed. 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 Mother Diabetes Brother Hx of CABG Diabetes Hypertension Daughter No problems noted. Daughter No problems noted. Social History Housing: Apartment Alcohol intake: former Year quit: 2011 Patient Tobacco Use Status: Former Tobacco user Tobacco use type: Cigarette Years Smoked: 2011 e-Cigarette/Vaping Use: Never Used Second Hand Smoke Exposure: Yes service: No Current occupational status: disabled Cognitive needs: Yes Hearing needs: No Vision needs: No Questionnaire Thrive Questionnaire Date Thrive assessed: 05/10/25 I am a: Parent/Caregiver What is your living situation today?: I have a steady place to live Within the past 12 months, did the food you bought not last and you didn't have the money to get more?: Never true Within the past 12 months, did you worry whether your food would run out before you got money to buy more?: Never true Do you have trouble paying for medicines?: No Do you have trouble getting transportation to medical appointments?: No Do you have trouble paying your heating and electricity bill?: No Do you have trouble taking care of your child, family member or friend?: No Do you have trouble with day-to-day activities such as bathing, preparing meals, shopping, managing finances, etc.?: No Are you currently unemployed and looking for a job?: No Are you interested in more education?: No Please select the resources that you would like help with: None Currently or been in a relationship where the following occur: No concerns reported THRIVE Score: 0 DIONNE-7 AMB Questionnaire DIONNE-7 Date DIONNE - 7 assessed: 01/11/25 Source: Developed by Drs. Byron Wu, Lisy Turner, Jame King and colleagues, with an educational belen from [employer]. Review of Systems Const All systems reviewed & are unremarkable except as noted in HPI and below Card Denies chest pain at rest, Denies chest pain with activity, Denies edema, Denies irregular heart rhythm, Denies claudication, Denies dyspnea, Denies dyspnea on exertion, Denies orthopnea, Denies paroxysmal nocturnal dyspnea and Denies slow heart rate Resp Denies cough, Denies dyspnea and Denies dyspnea on exertion Physical exam (Primary Care) Vital Signs: Last Vital Signs Temp 97.3 F 09/11/25 16:15 Pulse 62 09/11/25 16:15 Resp 18 09/11/25 16:17 BP 140/60 H 09/11/25 16:15 Pulse Ox 94 09/11/25 16:15 Oxygen Delivery Method Room Air 09/11/25 16:17 BMI result Body Mass Index 37.3 BMI Assessment/Plan discussion: High BMI High, discussed plan: lifestyle, weight reduction, dietary and physical activity Tobacco/Smoking Status: Tobacco use Status Tobacco use date assessed 09/11/25 09/11/25 16:27 Patient Tobacco Use Status Former Tobacco user 09/11/25 16:27 Tobacco use type Cigarette 09/11/25 16:27 e-Cigarette/Vaping Use Never Used 09/11/25 16:27 Thrive Assessment: Date of Thrive Assessment Date Thrive assessed 05/10/25 09/11/25 16:27 Currently or been in a relationship where the following occur: No concerns reported Resp Effort & Inspection: normal respiratory effort Auscultation: clear to auscultation bilaterally Cardio Rate: regular rate Rhythm: regular rhythm Heart sounds: S1 normal heart sound present and S2 normal heart sound present Extrem General: Yes full ROM Office Procedures Flu Questionnaire Does the patient have a severe egg allergy?: No Does the patient have severe life threatening allergies?: No Does the patient have a fever or illness today?: No Has the patient ever had Guillain-Kingston Syndrome?: No Has the patient ever had any past reaction to a flu shot?: No Immunizations Fluarix [id number] (PF) 45 mcg (15 mcg x 3)/0.5 mL IM syringe Performing Provider: Fang Solitario MD Per[facility] Administered by: ORION Lange on 09/11/25 17:00 Dose Route Admin Location Dispensed Lot Number Expiration Date NDC Clinical Ob 0.5 mL IM Left Deltoid 0.5 mL [id number] 05/29/26 13587-161-68 [place] VIS Given Date VIS Provided VIS Publication Date 09/11/25 Single Vaccine 24 Eligibility Eligibility Date Funding Source Not [facility] Eligible 09/11/25 Private Coding Level of Care Code Est Pt Level 3 (94576) Complex EM visit Add On G2211 Diagnoses Type 2 diabetes mellitus with hyperglycemia, with long-term current use of insulin E11.65; Z79.4 Diabetes mellitus technician terminal and repeater insulin use: with technician terminal and repeater use Essential hypertension I10 Hypercholesterolemia E78.00 Microalbuminuria R80.9 Time Spent (min) 20 Assessment & Plan Assessment & Plan (1) Type 2 diabetes mellitus with hyperglycemia: Code(s): E11.65 - Type 2 diabetes mellitus with hyperglycemia Category: Medical Qualifiers: Diabetes mellitus fci insulin use: with fci use Qualified Code(s): E11.65 - Type 2 diabetes mellitus with hyperglycemia; Z79.4 - care home (current) use of insulin (2) Essential hypertension: Code(s): I10 - Essential (primary) hypertension Category: Medical (3) Hypercholesterolemia: Code(s): E78.00 - Pure hypercholesterolemia, unspecified Category: Medical (4) Microalbuminuria: Code(s): R80.9 - Proteinuria, unspecified Category: Medical Plan Plan Patient was informed and verbally consented to the use of an ambient scribe for clinic note documentation during this visit. 1. Diabetes Mellitus The patient's diabetes is currently managed with metformin and Trulicity, with blood glucose levels appearing stable. 2. Hypertension Hypertension is managed with olmesartan and other antihypertensives, with blood pressure readings at the edge of normal limits. 3. Hyperlipidemia Hyperlipidemia is controlled with atorvastatin, with LDL cholesterol at 54 mg/dL, within the target range. 4. Microalbuminuria Microalbuminuria is being monitored, with protein levels in urine elevated to 311 mg/g, and the patient is under nephrology care. Orders: Orders Influenza [id number] Immunization Today Z23 - Encounter for immunization Uric Acid Today M10.9 - Gout, unspecified Referrals Nephrology Referral R80.9 - Proteinuria, unspecified
[2025-09-11 16:15] VITALS: BP 140/60; PULSE 62; RESP 18; TEMP 36.3; O2SAT 94; BMI 37.3
[2025-09-11 16:17] VITALS: RESP 18
== END 2025-09-11 17:03 | disposition home or self-care (01) ==
LOC: HO.HMCH 16:11
PROVIDERS: PCP Internal Medicine; Visit Provider Internal Medicine
DX: E11.65 Type 2 diabetes mellitus with hyperglycemia (principal); Z79.4 Long term (current) use of insulin; I10 Essential (primary) hypertension; E78.00 Pure hypercholesterolemia, unspecified; R80.9 Proteinuria, unspecified; Z23 Encounter for immunization

== ENCOUNTER → 2025-09-11 16:10 | Outpatient (BNVA) | payer MEDICARE, MEDICAID, SELFPAY | PROVIDERS: PCP Internal Medicine; Visit Provider Internal Medicine | DX: E11.65 Type 2 diabetes mellitus with hyperglycemia (principal); Z23 Encounter for immunization; I10 Essential (primary) hypertension; E78.00 Pure hypercholesterolemia, unspecified; R80.9 Proteinuria, unspecified; Z79.4 Long term (current) use of insulin | CPT/HCPCS: 90471; 90656; 99212 ==

== ENCOUNTER 2025-09-25 15:40 | Outpatient (AMB) | payer MEDICARE, MEDICAID, SELFPAY ==
[2025-09-25 15:42] VITALS: BP 138/68; PULSE 59; O2SAT 97; BMI 37.7
--- NOTE | 2025-09-25 15:42 | HO.NEPHOV ---
Vital Signs 09/25/25 15:42 Height 5 ft Weight 193 lb BMI 37.7 BP 138/68 Blood Pressure Location Lt brachial Position Sitting Pulse 59 Pulse Source Pulse Oximeter Pulse Oximetry (%) 97 Oxygen Delivery Method Room Air Intake Visit Reasons: INP: Protenuria confirmed Pipelines Manager Required: No Accompanied by: Daughter Allergies seafood Allergy (Severe, Verified 09/25/25 15:45) Anaphylaxis Medication List - Last Reconciled 09/25/25 by Gregg Leger MD Accu-Chek Guide test strips (blood sugar diagnostic) 1 strip miscellaneous .twice daily NS allopurinol 100 mg PO DAILY 90 days aspirin (Adult Aspirin Regimen) 81 mg PO DAILY 90 days atorvastatin 40 mg PO DAILY blood sugar diagnostic As directed-BID blood sugar diagnostic As directed- BID blood-glucose meter As directed-BID dorzolamide-timolol 22.3-6.8 mg/mL 1 drp ophthalmic-Right BID insulin degludec (Tresiba FlexTouch U-100 insulin) 44 units (0.44 mL) subcut BEDTIME 90 days isosorbide mononitrate ER 30 mg PO DAILY lancets Use 1 lancet twice a day metformin 1,000 mg PO BID metoprolol succinate ER 25 mg PO DAILY multivit with min-folic acid 80 mcg (Centrum Adult 50 Plus) 1 tab PO DAILY olmesartan 40 mg PO DAILY omeprazole 20 mg PO DAILY 90 days pen needle, diabetic USE EVERY DAY sennosides-docusate sodium 8.6-50 mg (Senna Plus) 2 tab-caps (2 x 8.6-50 mg) PO BEDTIME PRN Trulicity (dulaglutide) 4.5 mg (0.5 mL) subcut QWEEK NS HPI Comments Details: History of Present Illness - The patient is an 85-year-old male presenting with kidney function monitoring. - Chronic Kidney Disease: Kidney function 50-58%. - Diabetes Mellitus: Proteinuria due to diabetes, managed with Trulicity and insulin. - Gout: Managed with allopurinol. - Weight: Current weight 193 pounds, recent fluctuation noted. Physical Exam General: Awake. Comfortable. HENT: Neck supple. Mucosa moist. Pulmonary: Lungs aeration equal. No rales. Cardiology: Heart S1-S2 heard. No gallop. Abdomen: Soft. Non tender. Bowel sounds normal. Neurologic: No involuntary movements. No myoclonus. Extremities: No edema. No rash. [facility] Medical History CAD (coronary artery disease) Diabetes mellitus Dyslipidemia residential (current) use of insulin Class 2 obesity with body mass index (BMI) of 37.0 to 37.9 in adult Blind in both eyes Microalbuminuria Leg edema Essential hypertension Gout Surgical History History of cataract surgery History of eye surgery Family History Father No problems noted. Mother Diabetes Brother Hx of CABG Diabetes Hypertension Daughter No problems noted. Daughter No problems noted. Social History Housing: Apartment Alcohol intake: former Year quit: 2011 Patient Tobacco Use Status: Former Tobacco user Tobacco use type: Cigarette Years Smoked: 2011 e-Cigarette/Vaping Use: Never Used Second Hand Smoke Exposure: Yes service: No Current occupational status: disabled Cognitive needs: Yes Hearing needs: No Vision needs: No Physical Exam Vital Signs: Last Vital Signs Pulse 59 09/25/25 15:42 BP 138/68 09/25/25 15:42 Pulse Ox 97 09/25/25 15:42 Oxygen Delivery Method Room Air 09/25/25 15:42 BMI result Body Mass Index 37.7 Assessment & Plan Assessment & Plan (1) CKD (chronic kidney disease) stage 3, GFR 30-59 ml/min: Code(s): N18.30 - Chronic kidney disease, stage 3 unspecified Category: Medical Qualifiers: Chronic kidney disease stage 3 subtype: stage 3a (GFR 45-59) Qualified Code(s): N18.31 - Chronic kidney disease, stage 3a Plan 1. Chronic Kidney Disease Most likely due to hypertensive diabetic kidney disease Goal is to slow the progression of the kidney the EACs - Regular monitoring with tests and ultrasound. - Control blood sugar and reduce salt intake. - Avoid NSAIDs. And other nephrotoxic agents Baseline workup ordered. Further workup will depend on the outcome of the baseline investigations 2. Diabetes Mellitus - Continue Trulicity and insulin. - Regular glucose monitoring. Maintain A1c less than 7% 3. Gout - Continue allopurinol. Orders: Orders Basic Metabolic Panel Today N18.31 - Chronic kidney disease, stage 3a Complete Blood Count no Diff Today N18.31 - Chronic kidney disease, stage 3a Creatinine Urine Today N18.31 - Chronic kidney disease, stage 3a Total Protein Urine Random Today N18.31 - Chronic kidney disease, stage 3a Vitamin D 25-OH Total Today N18.31 - Chronic kidney disease, stage 3a UA and rflx microscopic Today N18.31 - Chronic kidney disease, stage 3a US renal BI Today N18.31 - Chronic kidney disease, stage 3a Patient Instructions: - Monitor blood sugar levels regularly. - Avoid NSAIDs like Aleve, Advil, and Motrin. - Maintain a low-salt diet and drink plenty of water. - Continue taking prescribed medications including Trulicity, insulin, and allopurinol. - Follow up in three months for kidney function monitoring. Coding Level of Care Code New Pt Level 4 (46333) Diagnoses Stage 3a chronic kidney disease N18.31 Chronic kidney disease stage 3 subtype: stage 3a (GFR 45-59)
--- OUTSIDE RECORDS SUMMARY | 2025-09-25 18:44 | XMS_ITS | Clinical Summary ---
Author Organization [facility] Address [address] [facility] [address] [place] [address] Phone Care Team Providers Care Drug Safety Coordinator Name Role Phone Fang Jenkins MD Primary Care Provider [phone] Allergies No known active allergies Medications omeprazole [...] Health Medicare [facility] Medicare Care Teams Drug Safety Coordinator Relationship Specialty Start Date End Date Fang Jenkins MD [address] [place] [address] PCP - General 12/10/20
--- OUTSIDE RECORDS SUMMARY | 2025-09-25 18:44 | XMS_ITS | Clinical Summary ---
Author Organization [address] [facility] Address [address] [place] [address] Phone Care Team Providers Care Plant Changer Name Role Phone Fang Solitario MD Primary Care Provider [phone] Social History Tobacco Use Types Packs/Day Years [...] [place] [facility] [employer] Care Teams Plant Changer Relationship Specialty Start Date End Date Fang Solitario MD [address] [place] [address] , [address] [facility] D/B/A: [facility] ISAAK Treviño PCP - General Internal Medicine 10/13/24
== END 2025-09-25 16:00 | disposition home or self-care (01) ==
LOC: HO.HKA 15:41
PROVIDERS: PCP Internal Medicine; Referring Provider Internal Medicine; Visit Provider Internal Medicine Hypertension Specialist
DX: N18.31 Chronic kidney disease, stage 3a (principal)
CPT/HCPCS: 99204

== ENCOUNTER → 2025-09-25 15:40 | Outpatient (BNVA) | payer MEDICARE, MEDICAID, SELFPAY | PROVIDERS: PCP Internal Medicine; Referring Provider Internal Medicine; Visit Provider Internal Medicine Hypertension Specialist | DX: N18.31 Chronic kidney disease, stage 3a (principal) | CPT/HCPCS: 99202 ==

== ENCOUNTER 2025-09-29 10:31 | Outpatient (REF) | payer MEDICARE, MEDICAID, SELFPAY ==
--- NOTE | ~2025-09-29 | US_ITS ---
CLINICAL HISTORY: N18.31 - Chronic kidney disease, stage 3a US renal with Color Doppler Comparison: None Findings: Right kidney normal size and echotexture, 10.5 cm length. No hydronephrosis calculus or mass. Normal color flow. Column of John. Renal cortical cyst lower pole with thin septation measuring 1.6 x 1.4 x 1.4 cm. Left kidney normal size and echotexture, 9.7 cm length. No hydronephrosis calculus or mass. Normal color flow. Column of John. Impression: 1. No nephrolithiasis. No hydronephrosis. Kidneys normal size and position with normal cortical width and echotexture. Bosniak type 2 cyst right kidney no follow-up needed. This document has been electronically signed by: Junito Mix MD on 09/29/2025 14:16:14
--- OUTSIDE RECORDS SUMMARY | 2025-09-29 11:54 | XMS_ITS | Clinical Summary ---
Author Organization [facility] Address [address] [facility] [address] [place] [address] Phone Care Team Providers Care Sewage Disposal Engineer Name Role Phone Fang Jenkins MD Primary Care Provider [phone] Allergies No known active allergies Medications omeprazole [...] Health Medicare [facility] Medicare Care Teams Sewage Disposal Engineer Relationship Specialty Start Date End Date Fang Jenkins MD [address] [place] [address] PCP - General 12/10/20
--- OUTSIDE RECORDS SUMMARY | 2025-09-29 11:54 | XMS_ITS | Clinical Summary ---
Author Organization [address] [facility] Address [address] [place] [address] Phone Care Team Providers Care Pattern Changer Name Role Phone Fang Solitario MD Primary Care Provider [phone] Social History Tobacco Use Types Packs/Day Years [...] [place] [facility] [employer] Care Teams Pattern Changer Relationship Specialty Start Date End Date Fang Solitario MD [address] [place] [address] , [address] [facility] D/B/A: [facility] ISAAK Treviño PCP - General Internal Medicine 10/13/24
[2025-09-29 12:54] LABS: Hematocrit 36.8 % (42.0-52.0); Hemoglobin 11.0 g/dl (14.0-18.0); Mean Corpuscular HGB Conc 29.9 g/dl (31.0-36.0); Mean Corpuscular Hemoglobin 25.7 pg (27.0-33.0); Mean Corpuscular Volume 86.0 fL (80.0-98.0); NRBC Abs Auto 0.000 X10*3/uL (0.0-0.012); NRBC Pct Auto 0.0 /100WBC (0.0-0.2); Platelet Count 221 X10*3/uL (160-400); Red Blood Count 4.28 X10*6/uL (4.60-5.80); White Blood Count 11.6 X10*3/uL (4.8-10.8)
[2025-09-29 12:57] LABS: Appearance Urine Clear; Glucose Urine UA Negative (Negative); PH 5.5 (5.0-9.0); Specific Gravity - Urine 1.010 (1.005-1.025); UMIC TRIGGER UA YES
[2025-09-29 13:18] LABS: Anion Gap 12 (12-20); Blood Urea Nitrogen 20 mg/dL (9-16); Calcium 8.9 mg/dL (8.4-10.2); Carbon Dioxide 25 mmol/L (22-29); Chloride 108 mmol/L (96-108); Estimated Glomerular Filt Rate 58; Potassium 4.8 mmol/L (3.3-5.1); Sodium 140 mmol/L (135-145)
[2025-09-29 13:33] LABS: Total Protein Urine Random 23 mg/dL (<12)
== END 2025-09-29 10:32 | disposition home or self-care (01) ==
LOC: HO.US 10:31
PROVIDERS: PCP Internal Medicine; Visit Provider Internal Medicine Hypertension Specialist
DX: N18.31 Chronic kidney disease, stage 3a (principal)
CPT/HCPCS: 36415; 76775; 80048; 81001; 82306; 82570; 84156; 85027

== ENCOUNTER → 2025-09-29 10:34 | Outpatient (BNV) | payer MEDICARE, MEDICAID, SELFPAY | PROVIDERS: PCP Internal Medicine; Visit Provider Radiology Diagnostic Radiology | DX: N18.31 Chronic kidney disease, stage 3a (principal) | CPT/HCPCS: 76775 ==

== ENCOUNTER 2025-10-24 14:39 | Outpatient (AMB) | payer MEDICARE, MEDICAID, SELFPAY ==
[2025-10-24 14:44] VITALS: BP 126/68; PULSE 63; BMI 36.9
--- NOTE | 2025-10-24 14:44 | MHC.OFFVIS ---
Vital Signs 10/24/25 14:44 Height 5 ft Weight 188 lb 11.451 oz BMI 36.9 BP 126/68 Blood Pressure Location Lt brachial Position Sitting Pulse 63 Pulse Source Pulse Oximeter Intake Visit Reasons: 6 mth f/up Regional Commercial Sales Manager Required: Yes Regional Commercial Sales Manager Services: Regional Commercial Sales Manager Offered & Declined Accompanied by: Daughter Allergies seafood Allergy (Severe, Verified 10/24/25 14:49) Anaphylaxis Medication List - Last Reconciled 10/24/25 by Cameron Grijalva NP Accu-Chek Guide test strips (blood sugar diagnostic) 1 strip miscellaneous .twice daily NS allopurinol 100 mg PO DAILY 90 days aspirin (Adult Aspirin Regimen) 81 mg PO DAILY 90 days atorvastatin 40 mg PO DAILY blood sugar diagnostic As directed-BID blood sugar diagnostic As directed- BID blood-glucose meter As directed-BID dorzolamide-timolol 22.3-6.8 mg/mL 1 drp ophthalmic-Right BID insulin degludec (Tresiba FlexTouch U-100 insulin) 44 units (0.44 mL) subcut BEDTIME 90 days isosorbide mononitrate ER 30 mg PO DAILY lancets Use 1 lancet twice a day metformin 1,000 mg PO BID metoprolol succinate ER 25 mg PO DAILY multivit with min-folic acid 80 mcg (Centrum Adult 50 Plus) 1 tab PO DAILY olmesartan 40 mg PO DAILY omeprazole 20 mg PO DAILY 90 days pen needle, diabetic USE EVERY DAY sennosides-docusate sodium 8.6-50 mg (Senna Plus) 2 tab-caps (2 x 8.6-50 mg) PO BEDTIME PRN Trulicity (dulaglutide) 4.5 mg (0.5 mL) subcut QWEEK NS HPI Comments Details: This is a 85-year-old male patient coming in for a follow-up visit, accompanied by his daughter who helped with the interpretation throughout the visit. Patient is legally blind and has a history of hypertension, hyperlipidemia, diabetes, obesity, and coronary artery disease. Today, patient is reporting feeling well overall without any cardiac symptoms of exertional chest pain, shortness breath, palpitations, dizziness, orthopnea, PND, leg edema, presyncope or syncope. Patient states that he is now on the highest dose of Trulicity and is trying to stay active as well. Patient states that his A1c has improved on this. Patient is otherwise reporting compliance with all medications. 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 Mother Diabetes Brother Hx of CABG Diabetes Hypertension Daughter No problems noted. Daughter No problems noted. Social History Housing: Apartment Alcohol intake: former Year quit: 2011 Patient Tobacco Use Status: Former Tobacco user Tobacco use type: Cigarette Years Smoked: 2011 e-Cigarette/Vaping Use: Never Used Second Hand Smoke Exposure: Yes service: No Current occupational status: disabled Cognitive needs: Yes Hearing needs: No Vision needs: No Review of Systems Const Denies daytime sleepiness, Denies difficulty sleeping, Denies snoring, Denies stops breathing during sleep and Denies weakness Card Denies chest pain, Denies rapid heart rate, Denies irregular heart rhythm, Denies claudication, Denies leg edema, Denies lightheadedness, Denies palpitations, Denies dyspnea, Reports dyspnea on exertion, Denies orthopnea, Denies paroxysmal nocturnal dyspnea and Denies slow heart rate Resp Denies cough, Denies dyspnea, Reports dyspnea on exertion and Denies snoring GI Reports no additional complaints, Denies hematochezia, Denies change in stool character and Denies dyspepsia Musc Denies abnormal gait, Denies muscle weakness and Denies numbness Neuro Denies abnormal gait, Denies numbness and Denies weakness Endo Denies palpitations Physical Exam Vital Signs: Last Vital Signs Pulse 63 10/24/25 14:44 BP 126/68 10/24/25 14:44 BMI result Body Mass Index 36.9 Const General: cooperative, healthy appearing, comfortable and no acute distress Orientation/consciousness: patient oriented x3 HEENT Other: Legally blind Head: Yes normal to inspection Neck Neck: Yes normal visual inspection, Yes trachea midline and Yes supple Chest Chest palpation & inspection: normal inspection of the chest Resp Effort & Inspection: normal respiratory effort Auscultation: clear to auscultation bilaterally, no crackles, no rales, no rhonchi and no wheezes Cardio Jugular venous distension: no JVD Palpation: normal PMI Rate: regular rate Rhythm: regular rhythm Heart sounds: S1 normal heart sound present, S2 normal heart sound present, no click, no gallops, no murmurs and no rubs Peripheral pulses: Peripheral pulses 2+ throughout GI Inspection: Yes normal to inspection Palpation (GI): Soft to palpation Auscultation: normal bowel sounds Skin General skin exam: no rashes or lesions noted Neuro General: patient oriented x3 Extrem General: Yes normal to inspection, No no pedal edema and No calf tenderness Psych Appearance: grossly normal Mental Status: mental status grossly normal Speech and movement: Normal speech and movement present Assessment & Plan Assessment & Plan (1) CAD (coronary artery disease): Comment: Coronary CTA showing 70-90% stenosis in the paroxysmal circumflex artery with mild disease in the LAD and moderate disease in the RCA Code(s): I25.10 - Atherosclerotic heart disease of [place] coronary artery without angina pectoris Category: Medical Plan: 01/24/2025-echo study showed a normal LV systolic function with an ejection fraction at 67%, with moderate septal asymmetric hypertrophy. 01/31/2025-patient underwent a myocardial perfusion study that showed moderate to severe intensity ischemia in the diagnostic territory as well as mild intensity in the RCA. 04/19/2025-coronary CTA shows mild disease in the LAD, and [id number] disease in the left circumflex artery. Clinically stable and without any cardiac symptoms at this time. Plan is to manage patient medically unless patient develops symptoms for which then he would need a cardiac catheterization. Continue with isosorbide and metoprolol therapy. Continue baby aspirin therapy. Continue statin therapy with an LDL goal less than 70. Most recent LDL at 54. Patient also has upcoming labs with PCP. (2) Essential hypertension: Code(s): I10 - Essential (primary) hypertension Category: Medical Plan: Blood pressure today is well-controlled. Continue current regimen with a blood pressure goal less than 130/80. Advised low-salt diet. (3) Hypercholesterolemia: Code(s): E78.00 - Pure hypercholesterolemia, unspecified Category: Medical Plan: As above. 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 Continue aggressive diabetes management with an A1c goal less than 7%. Followed by endocrinology. (5) Class 2 obesity with body mass index (BMI) of 37.0 to 37.9 in adult: Code(s): E66.9 - Obesity, unspecified; Z68.37 - Body mass index [BMI] 37.0-37.9, adult Category: Medical Qualifiers: Obesity type: due to excess calories Serious obesity comorbidity presence: with serious comorbidity Qualified Code(s): E66.812 - Obesity, class 2; E66.01 - Morbid (severe) obesity due to excess calories; Z68.37 - Body mass index [BMI] 37.0-37.9, adult Plan: Patient is now on higher dose of Trulicity and has been losing weight on this. Advised heart healthy diet, regular exercise as tolerated, weight loss, med compliance, and management of vascular risk factors. Follow up in 4 months. In the interim, patient will call the office with any concerns or change in symptoms. Advised to seek ER care in case of exertional chest pain not resolved with rest. This note was generated using voice recognition software. While every effort has been made to ensure accuracy and proper tufting creeler, there may be occasional errors that could affect the content or meaning of the described symptoms. Coding Level of Care Code Est Pt Level 4 (83851) Complex visit Add On G2211 Diagnoses CAD (coronary artery disease) I25.10 Essential hypertension I10 Hypercholesterolemia E78.00 Type 2 diabetes mellitus with hyperglycemia, with long-term current use of insulin E11.65; Z79.4 Diabetes mellitus care home insulin use: with long chain dyeing machine operator use Class 2 severe obesity due to excess calories with serious comorbidity and body mass index (BMI) of 37.0 to 37.9 in adult E66.812; E66.01; Z68.37 Obesity type: due to excess calories Serious obesity comorbidity presence: with serious comorbidity Time Spent (min) 33 Comment Time spent in reviewing the chart, test results, assessment, counseling and documentation.
--- OUTSIDE RECORDS SUMMARY | 2025-10-24 18:28 | XMS_ITS | Clinical Summary ---
Author Organization [address] [facility] Address [address] [place] [address] Phone Care Team Providers Care Donor Services Manager Name Role Phone Fang Solitario MD Primary Care Provider [phone] Social History Tobacco Use Types Packs/Day Years [...] [place] [facility] [employer] Care Teams Donor Services Manager Relationship Specialty Start Date End Date Fang Solitario MD [address] [place] [address] , [address] [facility] D/B/A: [facility] ISAAK Treviño PCP - General Internal Medicine 10/13/24
== END 2025-10-24 15:11 | disposition home or self-care (01) ==
LOC: HO.HCS 14:40
PROVIDERS: PCP Internal Medicine
DX: I25.10 Atherosclerotic heart disease of native coronary artery without angina pectoris (principal); I10 Essential (primary) hypertension; E78.00 Pure hypercholesterolemia, unspecified; E11.65 Type 2 diabetes mellitus with hyperglycemia; Z79.4 Long term (current) use of insulin; E66.812 Obesity, class 2; E66.01 Morbid (severe) obesity due to excess calories; Z68.37 Body mass index [BMI] 37.0-37.9, adult
CPT/HCPCS: 99214; G2211

== ENCOUNTER → 2025-10-24 14:39 | Outpatient (BNVA) | payer MEDICARE, MEDICAID, SELFPAY | PROVIDERS: PCP Internal Medicine | DX: I25.10 Atherosclerotic heart disease of native coronary artery without angina pectoris (principal); I10 Essential (primary) hypertension; E78.00 Pure hypercholesterolemia, unspecified; E11.65 Type 2 diabetes mellitus with hyperglycemia; E66.01 Morbid (severe) obesity due to excess calories; Z68.37 Body mass index [BMI] 37.0-37.9, adult; Z79.4 Long term (current) use of insulin | CPT/HCPCS: 99212 ==